=== PATIENT | female | born 2000 | race Caucasian/White ===

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

== ENCOUNTER 2020-12-27 17:45 | Emergency (ER) | payer SELFPAY ==
[2020-12-27 17:47] VITALS: BP 146/94; PULSE 89; RESP 18; TEMP 36.1; O2SAT 99; BMI 26.6
[2020-12-27 18:23] LABS: Bacteria 0 SEEN /hpf (None Seen); Mucous, Urine 0 SEEN /hpf (<or=2+); White Blood Cells 0 SEEN /hpf (0-5)
[2020-12-27 18:26] LABS: Absolute Lymphocyte Count 3.88 X10^3/uL (0.83-4.51); Absolute Neutrophil Count 5.6 X10^3/uL (2.0-7.7); Basophil# 0.03 X10^3/uL; Basophil% 0.3 % (0-1); Color, Urine Yellow (Yellow); Eosinophil# 0.09 X10^3/uL; Eosinophils% 0.9 % (0-5); Glucose, Dipstick Normal (Normal); Hematocrit 41.5 % (37-47); Hemoglobin 13.6 g/dL (12.0-15.0); Ketone-Dipstick Negative (Negative); Leukocyte Esterase-Dipstick Negative /ul (Negative); Lymphocyte # 3.88 X10^3/ul (4.0); Lymphocyte % 37.9 % (19-41); Mean Corp Hgb Conc 32.8 g/dL (32-36); Mean Corpuscular Hgb 31.7 pg (27.0-32.0); Mean Corpuscular Volume 96.7 fL (81-99); Mean Platelet Vol. 9.5 fl (6.2-12.0); Monocyte# 0.66 X10^3/uL; Monocyte% 6.4 % (0-10); NRBC Flagged by Analyzer 0 % (0-5); Neutrophil # 5.56 X10^3/uL (2.7-7.7); Neutrophil % 54.3 % (47-70); Nitrite-Dipstick Negative (Negative); Occult Blood-Urine 250 /ul (Negative); Platelet Count 342 K/mm3 (150-450); Protein-Dipstick Negative (Negative); RBC Distribution Width SD 42.5 fl (35.1-43.9); Red Blood Count 4.29 M/mm3 (4.2-5.4); Urine Bilirubin Dipstick Negative (Negative); Urine Clarity Clear (Clear); Urine Urobilinogen Normal (Normal); White Blood Count 10.2 K/mm3 (4.4-11.0)
[2020-12-27 18:35] LABS: Red Blood Cells-Urine 0-5 SEEN /hpf (0-5); Squamous Epithelial Cells - UA 0-5 SEEN /hpf (5-10)
[2020-12-27 18:43] LABS: AST(SGOT) 18 U/L (15-37); Alanine Aminotransfer ALT/SGPT 27 U/L (13-56); Albumin, Serum 3.8 g/dL (3.2-5.0); Alkaline Phosphatase 73 U/L (45-117); Anion Gap 7 (5-15); BUN 12 mg/dL (7-18); BUN/Creat Ratio 14.6 RATIO (10-20); Calcium,Total 8.6 mg/dL (8.5-10.1); Chloride 108 mmol/L (98-107); Creatinine, Serum 0.82 mg/dL (0.55-1.02); EST Glomerular Filtration Rate 93 mL/min (>60); Est Glom Filt Rate - Afr Amer 113 mL/min (>60); Globulin 3.8 g/dL (2.2-4.2); Glucose 92 mg/dL (74-106); Potassium 3.5 mmol/L (3.5-5.1); Protein, Total 7.6 g/dL (6.4-8.2); Sodium Level 140 mmol/L (136-145)
[2020-12-27 18:48] VITALS: BP 146/83; PULSE 96; RESP 15; O2SAT 99
[2020-12-27 19:09] LABS: Internal QC Validated? YES +Cl - CLEAR BKGD; Pregnancy, Serum, hCG Quali. NEGATIVE Negative
--- NOTE | 2020-12-27 19:35 | EKG12_ITS ---
Test Reason : ABD PAIN Blood Pressure : / mmHG Vent. Rate : 074 BPM Atrial Rate : 074 BPM P-R Int : 152 ms QRS Dur : 096 ms QT Int : 400 ms P-R-T Axes : 065 067 032 degrees QTc Int : 444 ms Normal sinus rhythm with sinus arrhythmia Normal ECG Confirmed by SALENA SCHMITZ, NOREEN ([id number]), avid editor ALLI HILLMAN ([id number]) on 01/01/2021 11:10:00 AM Referred By: NABEEL Confirmed By:ERIK MARTINO MD
[2020-12-27 19:38] LABS: Lipase 85 U/L (73-393)
--- NOTE | 2020-12-27 19:47 | ED.VIS.GEN ---
History of Present Illness Chief Complaint: Abd Pain Informant: Patient Narrative: Patient is a 20-year-old female who presents to the emergency department for abdominal pain. Yesterday. She has been taking multitude of antacids but has not been giving her any relief. It does come and go with the severity. She currently rates the pain as a 4 out of 10. The pain does not radiate. She describes as a burning sensation. Does not go into her chest and she denies any shortness of breath associated with this. Denies any fevers or chills. No cough. She denies any vomiting but has felt nauseous. She has not had any change in bowel movements including any constipation, diarrhea, blood in the stool or black tarry stools. No urinary symptoms. She has had a history of appendectomy. Past Medical History - Allergies and Home Meds Allergies/Adverse Reactions: Allergies hydrocodone Allergy (Verified 12/27/20 17:45) Hives Primary Care Physician: Gary Salvador MD [Primary Care Provider] - 2 Days Prior records reviewed: Yes Past Medical History: None Surgical History: appendectomy Smoking Status: Never smoker Review of Systems All systems negative except as indicated General: Denies: Chills, Fever, Sweats Eyes: Denies: Visual changes - bilaterally, Diplopia ENT: Denies: Rhinorrhea, Sore throat Cardiovascular: Denies: Chest pain, Palpitations Respiratory: Denies: Dyspnea, Cough, Dyspnea on exertion Gastrointestinal: Reports: Abdominal pain, Nausea. Denies: Vomiting, Diarrhea, Melena, Hematochezia Genitourinary: Denies: Dysuria, Hematuria, Frequency Musculoskeletal: Denies: Back pain, Extremity Pain Skin: Denies: Rash, Wounds Neurological: Denies: Headache, Weakness, Numbness Physical Exam Vital Signs/Narrative: Vital Signs Temp Pulse Resp BP Pulse Ox 12/27/20 18:48 96 15 146/83 H 99 12/27/20 17:47 97 F L 89 18 146/94 H 99 Inital Vital Signs reviewed: Yes General: Well nourished, Well developed, No Acute Distress Head: Normocephalic, Atraumatic Eyes: Perrl, EOMI ENT: Moist mucous membranes, No rhinorrhea Neck: Supple, Nontender Cardiovascular: Regular rate, Regular rhythm, No murmurs Respiratory: No distress, CTA bilaterally, Chest nontender Abdomen: Soft, Nondistended, Normal bowel sounds, Tender - Epigastric region. Negative for: Xiong's sign Back: Nontender, Normal Inspection. Negative for: CVA tenderness Extremities: Nontender, No edema Skin: Normal color, No rash Neurological: Alert, Oriented x3, Cranial nerves II-XII grossly intact, Normal Strength, Normal Sensation Psychological: Normal affect, Normal Mood Diagnostic/Tx/Re-eval - EKG Initial EKG Interpretation: - - Rate of 74 bpm and normal sinus rhythm. Normal intervals. Normal axis. No significant ST elevations or depressions. No T wave abnormalities. - Medical Decision Making Patient presents to the emergency department for epigastric pain. This is reproducible on palpation. She has been using antacids which have not been helping. We will give a GI cocktail for symptomatic relief. Blood work being obtained. Patient's lab work did not reveal a significant acute abnormalities. She has no elevation of her white blood cell count. No liver enzymes or bilirubin elevation. Kidney function within normal limits. No evidence of urinary tract infection. test is negative. Lipase within normal limits. Troponin is negative. Patient still having very significant pain despite GI cocktail so CT imaging was obtained. This was concerning for gallbladder wall thickening so ultrasound was obtained which did not show any evidence of cholecystitis or cholelithiasis. Her CT scan was consistent with an ileus with fecal retention. She is given a dose of Bentyl and will be sent home with a prescription for this and MiraLAX/Colace. She is to follow-up with her PCP. Return precautions were reviewed with her including worsening abdominal pain, inability keep anything down, developing fever/chills or any bloody bowel movements. He understands and is agreeable this plan. All questions were answered. ED Disposition - Plan for ED Patient: Disposition: Home or Assisted Living Diagnosis: Abdominal pain, Ileus, Constipation Instructions: ED Abdominal Pain Unkn Cause Fem, ED Constipation (Adult) Prescriptions: Dicyclomine HCl [Bentyl] 20 mg PO TIDAC #20 cap Transmission Status: Received by [id number] Docusate Sodium [Colace] 100 mg PO DAILY 10 Days #10 cap Transmission Status: Received by [id number] Polyethylene Glycol 3350 [Miralax] 17 gm PO DAILY #7 packet Transmission Status: Received by [id number] Referrals: Gary Salvador MD [Primary Care Provider] - 2 Days
[2020-12-27 20:00] VITALS: BP 133/83; PULSE 84; RESP 18; O2SAT 100
[2020-12-27] MEDS: Mag Hydrox/Al Hydrox/Simeth 30 ML UDC PO (20:09)
--- NOTE | 2020-12-27 20:36 | CT_ITS ---
STUDY: CT ABDOMEN AND PELVIS WITH CONTRAST REASON FOR EXAM: Female, 20 years old. EPIGASTRIC PAIN SINCE LAST NIGHT, HX ENDOMETRIOSIS RADIATION DOSAGE (If Supplied By Facility): CTDIvol = ( 11.245 ) mGy, DLP = ( 622.94 ) mGycm TECHNIQUE: Transaxial images were obtained from the dome of the diaphragm to the symphysis pubis without oral contrast. IV 100mL Isovue-370 was administered. Sagittal and coronal images were reconstructed. Individualized dose optimization techniques were used for this CT. COMPARISON: None. FINDINGS: The visualized lung bases are unremarkable. The visualized portions of the heart are within normal limits. Normal liver. Contracted thick-walled gallbladder without calcified stones possibly physiologic. If concern for gallbladder disease ultrasound recommended. Normal spleen. Normal pancreas. Normal bilateral adrenal glands. Normal right kidney. Normal left kidney. Normal visualized stomach. Nonspecific ileus with diffuse fecal retention in the colon. No evidence for small bowel obstruction.. Postop change status post appendectomy. Normal abdominal aorta. Normal inferior vena cava. Normal retroperitoneum. Uterus is deviated towards the right. There are 2 tiny cyst in the right ovary. Normal urinary bladder. Small subcentimeter inguinal nodes bilaterally most likely benign.. Normal osseous structures. CT/Abdomen/Pelvis W IV Cont ONLY IMPRESSION: Contracted thick-walled gallbladder without calcified stones possibly physiologic however if concern for gallbladder disease ultrasound recommended.. Nonspecific ileus with diffuse fecal retention in the colon. Status post appendectomy Electronically Signed: Jose Espino MD at 21:06 EST , Service support ,
[2020-12-27] MEDS: Morphine 4 MG/ML Syringe IV (20:45)
--- NOTE | 2020-12-27 21:27 | US_ITS ---
STUDY: ABDOMINAL ULTRASOUND - RIGHT UPPER QUADRANT REASON FOR VISIT: Female, [address] AND SEVERE EPIGASTRIC PAIN TECHNIQUE: Ultrasound evaluation of the right upper quadrant was performed with real-time and static petersen-scale imaging. TECHNICAL QUALITY: Adequate. COMPARISON: CT of the abdomen FINDINGS: Liver: The liver measures 13 cm. There is normal echogenicity of the liver. The bile ducts are within normal limits. There is hepatic color flow. The direction of portal flow is hepatopetal. There is no demonstrated mass lesion. Gallbladder: Normal distended gallbladder. The gallbladder wall measures 2 mm. There is a negative sonographic Xiong''s sign. There is no pericholecystic fluid. There are no gallstones. Common Bile Duct (C.B.D.): The common bile duct measures 4 mm. Pancreas: Limited visualization of pancreatic head. The rest of the pancreas is normal. There is normal echogenicity of the pancreas. There is no demonstrated pancreatic mass or cyst. Right Kidney: Normal size of the right kidney. The right kidney measures 9.5 x 5.5 x 4.6 cm. Normal renal cortex. The right cortex measures 1.4 cm. There is no demonstrated renal mass or cyst. There is no right hydronephrosis. US/Abdomen Limited IMPRESSION: No evidence for cholelithiasis or acute cholecystitis Electronically Signed: Jose Espino MD at 22:05 EST , Service support ,
[2020-12-27] MEDS: Dicyclomine 20 MG/2 ML Vial IM (23:36)
[2020-12-28] VITALS: BP 124/80; PULSE 93; RESP 18; TEMP 36.8; O2SAT 100
== END 2020-12-28 00:04 | disposition home or self-care (01) ==
PROVIDERS: Emergency Provider Emergency Medicine; PCP Family Medicine
DX: R10.9 Unspecified abdominal pain (principal); K56.7 Ileus, unspecified; K59.00 Constipation, unspecified
CPT/HCPCS: 74177; 76705; 80048; 80053; 81001; 83690; 84484; 84703; 85025; 93005; 96372; 96374; 99283; Q9967; A4216

== ENCOUNTER 2022-02-05 13:38 | Outpatient (CLI) | payer MEDICAID, SELFPAY ==
[2022-02-05 15:34] LABS: Progesterone Level 4.61 ng/mL (See Comment)
[2022-02-05 15:35] LABS: hCG Titer Quant., Serum < 1 mIU/mL (1-3)
== END 2022-02-05 23:59 | disposition home or self-care (01) ==
LOC: WOBLAB 13:42
PROVIDERS: PCP Family Medicine; Visit Provider Obstetrics & Gynecology
DX: N97.0 Female infertility associated with anovulation (principal)
CPT/HCPCS: 36415; 84144; 84702

== ENCOUNTER → 2022-10-15 | Outpatient (CLI) | payer MEDICAID, SELFPAY ==
[2022-10-15 15:16] LABS: Absolute Lymphocyte Count 1.87 X10^3/uL (0.83-4.51); Absolute Neutrophil Count 7.7 X10^3/uL (2.0-7.7); Basophil# 0.03 X10^3/uL; Basophil% 0.3 % (0-1); Eosinophil# 0.05 X10^3/uL; Eosinophils% 0.5 % (0-5); Hematocrit 35.4 % (37-47); Hemoglobin 11.5 g/dL (12.0-15.0); Lymphocyte # 1.87 X10^3/ul (0.83-4.51); Lymphocyte % 17.9 % (19-41); Mean Corp Hgb Conc 32.5 g/dL (32-36); Mean Corpuscular Hgb 32.9 pg (27.0-32.0); Mean Corpuscular Volume 101.1 fL (81-99); Mean Platelet Vol. 10.1 fl (6.2-12.0); Monocyte# 0.61 X10^3/uL; Monocyte% 5.8 % (0-10); NRBC Flagged by Analyzer 0 % (0-5); Neutrophil # 7.73 X10^3/uL (2.7-7.7); Neutrophil % 73.9 % (47-70); Platelet Count 291 K/mm3 (150-450); RBC Distribution Width CV 13.1 % (11.6-14.6); RBC Distribution Width SD 48.6 fl (35.1-43.9); White Blood Count 10.5 K/mm3 (4.4-11.0)
[2022-10-15 17:17] LABS: Glucose Challenge Gest 1H 50g 111 mg/dL (70-140)
[2022-10-15 18:03] LABS: HIV - WCH Non-Reactive (Nonreactive); Hepatitis B Surface Antigen Non-Reactive (Nonreactive); Hepatitis C Antibody Non-Reactive (Nonreactive); Rubella IgG Reactive (Nonreactive); Syphilis Antibodies Non-reactive
[2022-10-17 15:25] LABS: V-Zoster IgG (Immunity) 1195 index (Immune >165)
== END | disposition home or self-care (01) ==
LOC: WOBLAB 14:51
PROVIDERS: PCP Family Medicine; Visit Provider Obstetrics & Gynecology
DX: Z34.83 Encounter for supervision of other normal pregnancy, third trimester (principal)
CPT/HCPCS: 36415; 82950; 85025; 86703; 86762; 86780; 86787; 86803; 87086; 87088; 87340

== ENCOUNTER → 2022-12-04 | Outpatient (CLI) | payer MEDICAID, SELFPAY ==
[2022-12-04 12:59] LABS: Hematocrit 34.3 % (37-47); Hemoglobin 11.8 g/dL (12.0-15.0); Mean Corp Hgb Conc 34.4 g/dL (32-36); Mean Corpuscular Hgb 34.5 pg (27.0-32.0); Mean Corpuscular Volume 100.3 fL (81-99); Mean Platelet Vol. 10.8 fl (6.2-12.0); Platelet Count 295 K/mm3 (150-450); RBC Distribution Width CV 13.2 % (11.6-14.6); Red Blood Count 3.42 M/mm3 (4.2-5.4); White Blood Count 12.4 K/mm3 (4.4-11.0)
[2022-12-04 13:57] LABS: Syphilis Antibodies Non-reactive
== END | disposition home or self-care (01) ==
LOC: WOBLAB 11:33
PROVIDERS: PCP Family Medicine; Visit Provider Obstetrics & Gynecology
DX: Z34.83 Encounter for supervision of other normal pregnancy, third trimester (principal); Z36.85 Encounter for antenatal screening for Streptococcus B
CPT/HCPCS: 36415; 85027; 86780; 87081

== ENCOUNTER 2022-12-10 14:50 | Inpatient (IN) | payer MEDICAID, SELFPAY ==
[2022-12-10] VITALS (39 sets, daily range): BP systolic 122–145; BP diastolic 61–81; PULSE 82–101; RESP 16–18; TEMP 36.9–37.3; O2SAT 94–99; BMI 37.3
[2022-12-10] MEDS: Lactated Ringers 1,000 ML 15 ML IV (15:40)
[2022-12-10] MEDS: Magnesium Sulfate 4gm/100mL 4 GM/100 ML IV.SOLN. IV (15:50)
[2022-12-10 15:52] LABS: Mucous, Urine 0 SEEN /hpf (<or=2+); Red Blood Cells-Urine 0 SEEN /hpf (0-5)
[2022-12-10 15:54] LABS: Absolute Lymphocyte Count 2.15 X10^3/uL (0.83-4.51); Basophil# 0.03 X10^3/uL; Basophil% 0.3 % (0-1); Eosinophil# 0.05 X10^3/uL; Eosinophils% 0.4 % (0-5); Hematocrit 36.1 % (37-47); Hemoglobin 11.9 g/dL (12.0-15.0); Lymphocyte # 2.15 X10^3/ul (0.83-4.51); Lymphocyte % 19.1 % (19-41); Mean Corpuscular Hgb 32.6 pg (27.0-32.0); Mean Corpuscular Volume 98.9 fL (81-99); Mean Platelet Vol. 10.9 fl (6.2-12.0); Monocyte# 0.86 X10^3/uL; Monocyte% 7.6 % (0-10); NRBC Flagged by Analyzer 0 % (0-5); Neutrophil % 71.1 % (47-70); Platelet Count 284 K/mm3 (150-450); RBC Distribution Width CV 13.1 % (11.6-14.6); RBC Distribution Width SD 47.4 fl (35.1-43.9); Red Blood Count 3.65 M/mm3 (4.2-5.4); White Blood Count 11.3 K/mm3 (4.4-11.0)
[2022-12-10 16:02] LABS: Color, Urine Yellow (Yellow); Glucose, Dipstick Normal (Normal); Ketone-Dipstick Negative (Negative); Leukocyte Esterase-Dipstick 500 /ul (Negative); Nitrite-Dipstick Negative (Negative); Occult Blood-Urine Negative /ul (Negative); Protein-Dipstick Negative (Negative); Urine Bilirubin Dipstick Negative (Negative); Urine Clarity Sl. Cloudy (Clear); Urine Urobilinogen Normal (Normal)
[2022-12-10 16:11] LABS: Protein, Urine (Random) 12.8 mg/dL (<11.9); Protein:Creat Ratio 285 mg/g CRE (0-200)
[2022-12-10 16:12] LABS: LDH 160 U/L (84-246)
[2022-12-10 16:13] LABS: ALB/GLOB Ratio 0.6 RATIO (0.9-2.4); AST(SGOT) 12 U/L (15-37); Alanine Aminotransfer ALT/SGPT 14 U/L (13-56); Albumin, Serum 2.5 g/dL (3.2-5.0); Alkaline Phosphatase 129 U/L (45-117); Anion Gap 5 (5-15); BUN 7 mg/dL (7-18); BUN/Creat Ratio 12.6 RATIO (10-20); Calcium,Total 9.1 mg/dL (8.5-10.1); Chloride 110 mmol/L (98-107); Creatinine, Serum 0.56 mg/dL (0.55-1.02); EST Glomerular Filtration Rate 144 mL/min (>60); Est Glom Filt Rate - Afr Amer 174 mL/min (>60); Estimated Creatinine Clearance 136.07 ml/min; Globulin 4.2 g/dL (2.2-4.2); Glucose 94 mg/dL (74-106); Potassium 3.6 mmol/L (3.5-5.1); Protein, Total 6.7 g/dL (6.4-8.2); Sodium Level 138 mmol/L (136-145)
[2022-12-10] MEDS: Magnesium Sulfate 4gm/100mL 2 GM/50 ML IV.SOLN. IV (16:18)
[2022-12-10] MEDS: 0.9% Saline Lock 10 ML Syringe IV ×2 (16:20→19:24)
[2022-12-10 16:22] LABS: Bacteria 2+ /hpf (None Seen); White Blood Cells 10-25 SEEN /hpf (0-5)
[2022-12-10 16:23] LABS: Squamous Epithelial Cells - UA 10-25 SEEN /hpf (5-10)
[2022-12-10] MEDS: Betamethasone/Betamethasone 30 MG/5 ML Vial 12 MG IM (16:24)
[2022-12-10] MEDS: Magnesium Sulfate 20 GM/500 ML BAG IV (16:26)
--- NOTE | 2022-12-10 17:36 | HP.PCM.OB_ITS ---
History and Physical Date of Admission: 12/10/22 HPI: 22-year-old at 36/6 weeks, WILFRIDO 01/01/2020 3 x 7-week ultrasound, admitted for induction of labor for preeclampsia with severe features. Patient presented to the office this afternoon and had elevated blood pressure. Additionally patient is reporting headache with visual disturbances. Denies right upper quadrant pain, nausea or vomiting, chest pain or shortness of breath, diarrhea or constipation, fevers or chills. Reports movement. Denies regular contractions or leaking of fluid. 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 Appendectomy 2. Tonsillectomy and adenoidectomy 3. Laparoscopic endometriosis surgery 2019 Medications: vitamin Allergies: 1. Hydrocodone caused hives Social history: Denies current tobacco use, is a former user, denies alcohol or drug use Family history: Denies history of blood clots or bleeding disorders Review of system: Negative otherwise stated above Physical exam: Blood pressure 140/73, heart rate 85, oxygen saturation 98% on room air General: No acute distress HEENT: Normal cephalic/atraumatic, PERRLA Cardiorespiratory: No increased effort Abdomen: Soft, nontender, gravid, no right upper quadrant pain Extremities: +1 edema Neurologic: Cranial nerves II through XII grossly intact, DTRs 2/4 bilaterally, no clonus Musculoskeletal: Strength out of 5 throughout extremities Cervical exam pending Bedside ultrasound today in office cephalic position FHR: 135/mod betty/+accel/no decel [place]: irregular panel A positive GBS negative HIV/hepatitis B/hepatitis C all negative Rubella immune Syphilis negative Assessment/plan: 22-year-old at 36/6 weeks, WILFRIDO 01/01/2020 3 x 7-week ultrasound, admitted for induction of labor for preeclampsia with severe features. complicated by: Preeclampsia with severe feature based on elevated blood pressure and neurologic symptoms. ?Admit for induction of labor with cytotec ?Preeclampsia with severe features: Start magnesium sulfate. 6 g bolus followed by 2 g/h. Will check mag level in 6 hours. ?Celestone given ?GBS negative ?All questions answered.
[2022-12-10] MEDS: miSOPROStol 25 MCG TABLET VAGINAL ×2 (18:06→22:09)
[2022-12-11] VITALS (55 sets, daily range): BP systolic 99–155; BP diastolic 54–91; PULSE 78–111; RESP 16–18; TEMP 36.1–36.9; O2SAT 92–100
[2022-12-11] MEDS: miSOPROStol 25 MCG TABLET VAGINAL ×2 (02:15→06:13)
[2022-12-11] MEDS: Magnesium Sulfate 20 GM/500 ML BAG IV ×3 (02:24→22:45)
[2022-12-11] MEDS: fentaNYL 100 MCG/2 ML Ampul IV ×6 (04:33→16:29)
--- NOTE | 2022-12-11 06:08 | PN.OBGYN_ITS ---
Subjective Subjective Patient sleeping this morning, did not wake. Spoke with her partner who did not have any questions. Objective Data Objective Data Vital Signs: Vital Signs Temp Pulse Resp BP Pulse Ox O2 Del Method 98.2 F 96 16 134/79 H 98 Room Air 12/11/22 04:20 12/11/22 05:04 12/10/22 19:00 12/11/22 05:04 12/11/22 05:04 12/10/22 18:04 Oxygen Delivery Method Room Air Weight: 98.6 kg Body Mass Index (BMI) 37.3 Intake & Output: Intake and Output for Last 24 Hours 12/09/22 12/10/22 12/11/22 23:59 23:59 23:59 Intake Total 570 / 570 873.33 / 873.33 Output Total 950 / 950 850 / 850 Balance -380 / -380 . Lab / Micro Data Attestation: I reviewed the patient's lab results. Result Diagrams: 12/10/22 15:35 12/10/22 15:35 Labs: Laboratory Results - last 24 hr 12/10/22 15:35: WBC 11.3 H, RBC 3.65 L, Hgb 11.9 L, Hct 36.1 L, MCV 98.9, MCH 32.6 H, MCHC 33.0, RDW Std Deviation 47.4 H, RDW Coeff of Gino 13.1, Plt Count 284, MPV 10.9, Immature Gran % (Auto) 1.500 H, Neut % (Auto) 71.1 H, Lymph % (Auto) 19.1, [place] % (Auto) 7.6, Eos % (Auto) 0.4, Baso % (Auto) 0.3, Absolute Neuts (auto) 8.0 H, Absolute Lymphs (auto) 2.15, Nucleated RBC % 0 12/10/22 15:35: Blood Type A POSITIVE, Antibody Screen NEGATIVE 12/10/22 15:35: U Random Total Protein 12.8 H, Urine Creatinine 44.90, Protein/Creatinin Ratio 285 H 12/10/22 15:35: Urine Color Yellow, Urine Clarity Sl. Cloudy, Urine pH 6.0, Ur Specific [place] 1.010, Urine Protein Negative, Urine Glucose (UA) Normal, Urine Ketones Negative, Urine Occult Blood Negative, Urine Nitrite Negative, Urine Bilirubin Negative, Urine Urobilinogen Normal, Ur Leukocyte Esterase 500 H, Urine RBC 0 SEEN, Urine WBC 10-25 SEEN, Ur Squamous Epith Cells 10-25 SEEN, Urine Bacteria 2+, Urine Mucus 0 SEEN 12/10/22 15:35: Lactate Dehydrogenase 160 12/10/22 15:35: Sodium 138, Potassium 3.6, Chloride 110 H, Carbon Dioxide 23.0, Anion Gap 5, BUN 7, Creatinine 0.56, Estim Creat Clear Calc 136.07, Est GFR (MDRD) Af Amer 174, Est GFR (MDRD) Non-Af 144, BUN/Creatinine Ratio 12.6, Glucose 94, Calcium 9.1, Total Bilirubin 0.20, AST 12 L, ALT 14, Alkaline Phosphatase 129 H, Total Protein 6.7, Albumin 2.5 L, Globulin 4.2, Albumin/Globulin Ratio 0.6 L Physical Exam Const no apparent distress Constitutional Narrative: Sleeping comfortably NST FHR Rate Baby A Baseline: 120 Variability:: Moderate Accelerations:: 15 x 15 Decelerations:: None FHR Category:: Category I Assessment & Plan (1) Severe pre-eclampsia: PLAN: Plan 22-year-old G1 at 37/0 weeks admitted for induction of labor for preeclampsia with severe features. Continue magnesium sulfate. Blood pressures are currently well controlled. Continue Cytotec induction. Patient is due for her fourth dose this morning.
[2022-12-11] MEDS: 0.9% Saline Lock 10 ML Syringe IV ×5 (07:17→16:29)
[2022-12-11 11:01] LABS: Magnesium 5.6 mg/dL (1.6-2.6)
[2022-12-11] MEDS: Oxytocin 15 Units/NS 250ml 15 UNITS/250 ML IV.SOLN 2 UNITS IV (11:03)
[2022-12-11] MEDS: Ondansetron 4 MG/2 ML Vial IV (11:41)
--- NOTE | 2022-12-11 12:47 | PN.OBGYN_ITS ---
Subjective Subjective Patient feeling more discomfort with contract Objective Data Objective Data Vital Signs: Vital Signs Temp Pulse Resp BP Pulse Ox O2 Del Method 98.5 F 86 16 130/77 H 97 Room Air 12/11/22 11:00 12/11/22 11:01 12/11/22 10:00 12/11/22 11:00 12/11/22 11:01 12/11/22 10:00 Oxygen Delivery Method Room Air Weight: 217 lb 6 oz Body Mass Index (BMI) 37.3 Intake & Output: Intake and Output for Last 24 Hours 12/09/22 12/10/22 12/11/22 23:59 23:59 23:59 Intake Total 570 / 570 1326.00 / 1326.00 Output Total 950 / 950 1475 / 1475 Balance -380 / -380 -149.00 / -149.00 Lab / Micro Data Result Diagrams: 12/10/22 15:35 12/10/22 15:35 Labs: Laboratory Results - last 24 hr 12/10/22 15:35: WBC 11.3 H, RBC 3.65 L, Hgb 11.9 L, Hct 36.1 L, MCV 98.9, MCH 32.6 H, MCHC 33.0, RDW Std Deviation 47.4 H, RDW Coeff of Gino 13.1, Plt Count 284, MPV 10.9, Immature Gran % (Auto) 1.500 H, Neut % (Auto) 71.1 H, Lymph % (Auto) 19.1, [place] % (Auto) 7.6, Eos % (Auto) 0.4, Baso % (Auto) 0.3, Absolute Neuts (auto) 8.0 H, Absolute Lymphs (auto) 2.15, Nucleated RBC % 0 12/10/22 15:35: Blood Type A POSITIVE, Antibody Screen NEGATIVE 12/10/22 15:35: U Random Total Protein 12.8 H, Urine Creatinine 44.90, Protein/Creatinin Ratio 285 H 12/10/22 15:35: Urine Color Yellow, Urine Clarity Sl. Cloudy, Urine pH 6.0, Ur Specific [place] 1.010, Urine Protein Negative, Urine Glucose (UA) Normal, Urine Ketones Negative, Urine Occult Blood Negative, Urine Nitrite Negative, Urine Bilirubin Negative, Urine Urobilinogen Normal, Ur Leukocyte Esterase 500 H, Urine RBC 0 SEEN, Urine WBC 10-25 SEEN, Ur Squamous Epith Cells 10-25 SEEN, Urine Bacteria 2+, Urine Mucus 0 SEEN 12/10/22 15:35: Lactate Dehydrogenase 160 12/10/22 15:35: Sodium 138, Potassium 3.6, Chloride 110 H, Carbon Dioxide 23.0, Anion Gap 5, BUN 7, Creatinine 0.56, Estim Creat Clear Calc 136.07, Est GFR (MDRD) Af Amer 174, Est GFR (MDRD) Non-Af 144, BUN/Creatinine Ratio 12.6, Glucose 94, Calcium 9.1, Total Bilirubin 0.20, AST 12 L, ALT 14, Alkaline Phosphatase 129 H, Total Protein 6.7, Albumin 2.5 L, Globulin 4.2, Albumin/Globulin Ratio 0.6 L 12/11/22 10:37: Magnesium 5.6 H* Physical Exam Const alert, oriented x3, no apparent distress, average body habitus, healthy appearing and well nourished HEENT normocephalic and moist oral mucous membranes Eyes PERRL Neck full ROM Resp normal respiratory effort, no retractions and no use of accessory muscles GI GI Narrative: Soft, nontender, gravid Narrative: Cervical exam: /-3. AROM clear fluid Extremity normal to inspection, full ROM and no clubbing, cyanosis or edema Neuro moves all extremities and no focal motor deficits Psych mental status grossly normal, affect normal, speech normal and activity/motor behavior normal Assessment & Plan (1) : PLAN: Patient seen and examined. AROM clear fluid. Status post 4 doses of Cytotec. Pitocin started. We will continue to titrate Pitocin. Preeclampsia with severe features, will continue magnesium and continue to monitor blood pressures.
[2022-12-11] MEDS: LACTATED RINGERS 500 ML 999 ML IV ×2 (17:38→23:36)
--- NOTE | 2022-12-11 18:05 | PCM.PN.OB ---
Subjective Subjective Pain with contractions pain with contractions pain with contractions Objective Data Objective Data Vital Signs: Vital Signs Temp Pulse Resp BP Pulse Ox O2 Del Method 98.4 F 99 16 127/61 H 98 Room Air 12/11/22 17:12 12/11/22 17:16 12/11/22 10:00 12/11/22 17:12 12/11/22 17:16 12/11/22 10:00 Oxygen Delivery Method Room Air Weight: 217 lb 6 oz Body Mass Index (BMI) 37.3 Intake & Output: Intake and Output for Last 24 Hours 12/09/22 12/10/22 12/11/22 23:59 23:59 23:59 Intake Total 570 / 570 2690.93 / 2690.93 Output Total 950 / 950 2225 / 2225 Balance -380 / -380 465.93 / 465.93 Lab / Micro Data Result Diagrams: 12/10/22 15:35 12/10/22 15:35 Labs: Laboratory Results - last 24 hr 12/11/22 10:37: Magnesium 5.6 H* Physical Exam Const alert, oriented x3, no apparent distress, average body habitus, healthy appearing and well nourished HEENT normocephalic and moist oral mucous membranes Eyes PERRL Resp normal respiratory effort, no retractions and no use of accessory muscles Extremity normal to inspection and full ROM Psych mental status grossly normal, affect normal, speech normal and activity/motor behavior normal Assessment & Plan (1) : PLAN: Patient seen and examined. Uncomfortable with contractions now getting epidural. Recent nursing check 4 cm. We will continue to titrate Pitocin. Continue magnesium with preeclampsia with severe features based on headache and visual changes. We will continue to monitor blood pressures.
[2022-12-11] MEDS: fentaNYL-bupivacaine (epidural) 100 ML BAG EPIDURAL ×2 (18:50→23:20)
[2022-12-12] VITALS (53 sets, daily range): BP systolic 111–150; BP diastolic 54–82; PULSE 72–105; RESP 14–18; TEMP 36.3–37.3; O2SAT 93–100
[2022-12-12] MEDS: Lactated Ringers 1,000 ML 50 ML IV (00:07)
[2022-12-12] MEDS: Oxytocin 10 UNITS/ML Vial IM (02:52)
[2022-12-12] MEDS: Oxytocin 15 Units/NS 250ml 15 UNITS/250 ML IV.SOLN 83 UNITS IV (02:52)
--- NOTE | 2022-12-12 03:18 | EX.PCM.OBRPT ---
Vaginal Delivery Findings Description of Procedure: Normal spontaneous vaginal livery viable male infant, vertex DAISY. Head and shoulders delivered with ease. Cord clamped and cut. Baby handed off to patient. Placenta delivered via manual extraction. Placenta evaluated and found to be intact. Bedside ultrasound postdelivery thin endometrial stripe was noted. Uterus firm. 10 units of IM Pitocin given and IV Pitocin in order to facilitate uterine contractions. Good hemostasis noted. Left labial laceration noted and repaired in typical fashion. EBL. 50 cc Apgars 8/9
[2022-12-12 05:35] LABS: Absolute Lymphocyte Count 1.33 X10^3/uL (0.83-4.51); Absolute Neutrophil Count 14.6 X10^3/uL (2.0-7.7); Basophil# 0.02 X10^3/uL; Basophil% 0.1 % (0-1); Hematocrit 31.3 % (37-47); Hemoglobin 10.2 g/dL (12.0-15.0); Lymphocyte # 1.33 X10^3/ul (0.83-4.51); Lymphocyte % 7.5 % (19-41); Mean Corp Hgb Conc 32.6 g/dL (32-36); Mean Corpuscular Hgb 32.9 pg (27.0-32.0); Mean Platelet Vol. 10.6 fl (6.2-12.0); Monocyte# 1.66 X10^3/uL; Monocyte% 9.4 % (0-10); NRBC Flagged by Analyzer 0 % (0-5); Neutrophil # 14.56 X10^3/uL (2.7-7.7); POSITIVE DIFFERENTIAL YES; Platelet Count 252 K/mm3 (150-450); RBC Distribution Width CV 13.4 % (11.6-14.6); RBC Distribution Width SD 49.3 fl (35.1-43.9); White Blood Count 17.7 K/mm3 (4.4-11.0)
[2022-12-12 05:45] LABS: Differential Indicated SCAN CRITERIA MET
[2022-12-12 06:00] LABS: Macrocytosis RARE
[2022-12-12 06:05] LABS: ALB/GLOB Ratio 0.6 RATIO (0.9-2.4); AST(SGOT) 14 U/L (15-37); Alanine Aminotransfer ALT/SGPT 14 U/L (13-56); Albumin, Serum 2.2 g/dL (3.2-5.0); Alkaline Phosphatase 112 U/L (45-117); Anion Gap 11 (5-15); BUN 7 mg/dL (7-18); BUN/Creat Ratio 11.4 RATIO (10-20); Calcium,Total 7.2 mg/dL (8.5-10.1); Chloride 105 mmol/L (98-107); Creatinine, Serum 0.61 mg/dL (0.55-1.02); EST Glomerular Filtration Rate 128 mL/min (>60); Est Glom Filt Rate - Afr Amer 155 mL/min (>60); Estimated Creatinine Clearance 124.92 ml/min; Globulin 3.6 g/dL (2.2-4.2); Glucose 109 mg/dL (74-106); LDH 198 U/L (84-246); Potassium 3.4 mmol/L (3.5-5.1); Protein, Total 5.8 g/dL (6.4-8.2); Sodium Level 136 mmol/L (136-145)
[2022-12-12] MEDS: 0.9% Saline Lock 10 ML Syringe IV (06:05)
[2022-12-12] MEDS: Magnesium Sulfate 20 GM/500 ML BAG IV ×2 (09:44→19:58)
[2022-12-12] MEDS: Benzocaine/Lanolin/Aloe Vera 1 SPRAY EACH TOPICAL (09:44)
[2022-12-12] MEDS: Ibuprofen 600 MG Tablet PO (20:01)
[2022-12-13] VITALS (12 sets, daily range): BP systolic 104–130; BP diastolic 57–66; PULSE 66–82; RESP 16–18; TEMP 36.5–37.3; O2SAT 94–98
[2022-12-13] MEDS: 0.9% Saline Lock 10 ML Syringe IV (02:54)
[2022-12-13] MEDS: Ibuprofen 600 MG Tablet PO ×3 (04:42→18:05)
--- NOTE | 2022-12-13 07:21 | PCM.PN.OB ---
Subjective Subjective Resting comfortably in bed. Feeling well. Denies headache or vision changes, chest pain or shortness of breath, nausea or vomiting. Breast-feeding. Objective Data Objective Data Vital Signs: Vital Signs Temp Pulse Resp BP Pulse Ox O2 Del Method 97.8 F 71 16 119/62 97 Room Air 12/13/22 03:37 12/13/22 03:38 12/13/22 03:37 12/13/22 03:38 12/13/22 03:37 12/13/22 03:37 Oxygen Delivery Method Room Air Weight: 98.6 kg Body Mass Index (BMI) 37.3 Intake & Output: Intake and Output for Last 24 Hours 12/11/22 12/12/22 12/13/22 23:59 23:59 23:59 Intake Total 4263.01 / 4263.01 3115.50 / 3115.50 393.33 / 393.33 Output Total 2675 / 2675 2950 / 2950 Balance 1588.01 / 1588.01 165.50 / 165.50 393.33 / 393.33 Lab / Micro Data Attestation: I reviewed the patient's lab results. Result Diagrams: 12/12/22 05:25 12/12/22 05:25 Physical Exam Const alert, oriented x3 and no apparent distress HEENT normocephalic Head and Scalp: atraumatic Neck full ROM Resp normal respiratory effort Cardio regular rate GI normal to inspection, nondistended, normoactive bowel sounds GI Narrative: Uterus 2 cm below umbilicus Back/Spine normal ROM Extremity normal to inspection Extremity Narrative: Minimal pedal edema Neuro no focal motor deficits and no sensory deficits noted Psych mental status grossly normal and affect normal Assessment & Plan (1) Severe pre-eclampsia: PLAN: day 1 status post . Complicated by preeclampsia with severe features based on neurologic symptoms and elevated blood pressure. Status post magnesium sulfate x24 hours. Blood pressures well controlled. We will repeat labs this morning. Breast-feeding. Plan discharge home on Friday if labs and blood pressures continue to be stable.
[2022-12-13 08:35] LABS: Absolute Neutrophil Count 9.3 X10^3/uL (2.0-7.7); Basophil# 0.05 X10^3/uL; Basophil% 0.4 % (0-1); Eosinophil# 0.08 X10^3/uL; Eosinophils% 0.6 % (0-5); Hematocrit 30.1 % (37-47); Hemoglobin 10.1 g/dL (12.0-15.0); Lymphocyte % 21.6 % (19-41); Mean Corp Hgb Conc 33.6 g/dL (32-36); Mean Corpuscular Hgb 33.8 pg (27.0-32.0); Mean Corpuscular Volume 100.7 fL (81-99); Mean Platelet Vol. 10.5 fl (6.2-12.0); Monocyte# 1.37 X10^3/uL; Monocyte% 9.9 % (0-10); NRBC Flagged by Analyzer 0 % (0-5); Neutrophil # 9.25 X10^3/uL (2.7-7.7); Neutrophil % 66.4 % (47-70); Platelet Count 249 K/mm3 (150-450); RBC Distribution Width CV 13.7 % (11.6-14.6); RBC Distribution Width SD 50.5 fl (35.1-43.9); Red Blood Count 2.99 M/mm3 (4.2-5.4); White Blood Count 13.9 K/mm3 (4.4-11.0)
[2022-12-13 09:03] LABS: ALB/GLOB Ratio 0.6 RATIO (0.9-2.4); AST(SGOT) 20 U/L (15-37); Alanine Aminotransfer ALT/SGPT 16 U/L (13-56); Albumin, Serum 2.1 g/dL (3.2-5.0); Alkaline Phosphatase 99 U/L (45-117); Anion Gap 8 (5-15); BUN 10 mg/dL (7-18); BUN/Creat Ratio 16.4 RATIO (10-20); Calcium,Total 7.8 mg/dL (8.5-10.1); Chloride 109 mmol/L (98-107); Creatinine, Serum 0.61 mg/dL (0.55-1.02); EST Glomerular Filtration Rate 129 mL/min (>60); Est Glom Filt Rate - Afr Amer 157 mL/min (>60); Estimated Creatinine Clearance 124.92 ml/min; Globulin 3.6 g/dL (2.2-4.2); Glucose 101 mg/dL (74-106); LDH 266 U/L (84-246); Potassium 3.3 mmol/L (3.5-5.1); Protein, Total 5.7 g/dL (6.4-8.2); Sodium Level 140 mmol/L (136-145)
[2022-12-13 11:47] LABS: Pathologist Review Reviewed
[2022-12-13] MEDS: Acetaminophen 500 MG Tablet 1000 MG PO ×2 (14:30→22:17)
--- NOTE | 2022-12-14 00:17 | PCM.PN.OB ---
Subjective Subjective Patient tired. Baby is cluster feeding. Lochia minimal. Some cramping, improved with Tylenol and Motrin. Denies headache or vision changes, chest pain or shortness of breath, nausea or vomiting. Objective Data Objective Data Vital Signs: Vital Signs Temp Pulse Resp BP Pulse Ox O2 Del Method 99.1 F 71 18 130/61 H 98 Room Air 12/13/22 20:54 12/13/22 20:54 12/13/22 20:54 12/13/22 20:54 12/13/22 08:26 12/13/22 20:54 Oxygen Delivery Method Room Air Weight: 98.6 kg Body Mass Index (BMI) 37.3 Intake & Output: Intake and Output for Last 24 Hours 12/12/22 12/13/22 12/14/22 23:59 23:59 23:59 Intake Total 3115.50 / 3115.50 393.33 / 393.33 Output Total 2950 / 2950 Balance 165.50 / 165.50 393.33 / 393.33 Lab / Micro Data Attestation: I reviewed the patient's lab results. Result Diagrams: 12/13/22 08:15 12/13/22 08:15 Labs: Laboratory Results - last 24 hr 12/12/22 05:25: Diff Path Review Reviewed 12/13/22 08:15: Sodium 140, Potassium 3.3 L, Chloride 109 H, Carbon Dioxide 23.0, Anion Gap 8, BUN 10, Creatinine 0.61, Estim Creat Clear Calc 124.92, Est GFR (MDRD) Af Amer 157, Est GFR (MDRD) Non-Af 129, BUN/Creatinine Ratio 16.4, Glucose 101, Calcium 7.8 L, Total Bilirubin 0.20, AST 20, ALT 16, Alkaline Phosphatase 99, Lactate Dehydrogenase 266 H, Total Protein 5.7 L, Albumin 2.1 L, Globulin 3.6, Albumin/Globulin Ratio 0.6 L 12/13/22 08:15: WBC 13.9 H, RBC 2.99 L, Hgb 10.1 L, Hct 30.1 L, MCV 100.7 H, MCH 33.8 H, MCHC 33.6, RDW Std Deviation 50.5 H, RDW Coeff of Gino 13.7, Plt Count 249, MPV 10.5, Immature Gran % (Auto) 1.100 H, Neut % (Auto) 66.4, Lymph % (Auto) 21.6, [place] % (Auto) 9.9, Eos % (Auto) 0.6, Baso % (Auto) 0.4, Absolute Neuts (auto) 9.3 H, Absolute Lymphs (auto) 3.00, Nucleated RBC % 0 Physical Exam Const alert, oriented x3 and no apparent distress HEENT normocephalic Head and Scalp: atraumatic Neck full ROM Resp normal respiratory effort Cardio regular rate GI normal to inspection, nondistended, normoactive bowel sounds GI Narrative: Uterus 2 cm below umbilicus Back/Spine normal ROM Extremity normal to inspection Extremity Narrative: Minimal pedal edema Neuro no focal motor deficits and no sensory deficits noted Psych mental status grossly normal and affect normal Assessment & Plan (1) Severe pre-eclampsia: PLAN: day 2 status post . Complicated by preeclampsia with severe features based on neurologic symptoms and elevated blood pressure. Status post magnesium sulfate x24 hours. Blood pressures well controlled. Labs stable on day 1. Breast-feeding. Plan discharge home on Friday if labs and blood pressures continue to be stable.
[2022-12-14] MEDS: Ibuprofen 600 MG Tablet PO ×4 (00:35→23:48)
[2022-12-14] MEDS: 0.9% Saline Lock 10 ML Syringe IV ×2 (00:35→15:17)
[2022-12-14 01:28] VITALS: BP 118/71; PULSE 71; RESP 18; TEMP 36.9
[2022-12-14] MEDS: Acetaminophen 500 MG Tablet 1000 MG PO ×3 (04:56→17:10)
[2022-12-14 09:19] VITALS: BP 138/83; PULSE 76; RESP 15; TEMP 37.1
[2022-12-14 12:16] VITALS: BP 140/83
[2022-12-14 14:27] VITALS: BP 134/77; PULSE 80; RESP 15; TEMP 37.1; O2SAT 98
[2022-12-14 20:40] VITALS: BP 137/85; PULSE 71; RESP 18; TEMP 36.8
[2022-12-15 02:24] VITALS: BP 132/82; PULSE 73; RESP 16; TEMP 36.9
[2022-12-15] MEDS: Acetaminophen 500 MG Tablet 1000 MG PO ×3 (02:38→15:58)
--- NOTE | 2022-12-15 08:01 | PCM.PN.OB ---
Subjective Subjective Patient got some rest this morning. Breast-feeding is going better. Baby needs bili lights. Denies headache or vision changes, chest pain or shortness of breath, nausea or vomiting. Objective Data Objective Data Vital Signs: Vital Signs Temp Pulse Resp BP Pulse Ox O2 Del Method 98.4 F 73 16 132/82 H 98 Room Air 12/15/22 02:24 12/15/22 02:24 12/15/22 02:24 12/15/22 02:24 12/14/22 14:27 12/15/22 02:24 Oxygen Delivery Method Room Air Weight: 98.6 kg Body Mass Index (BMI) 37.3 Intake & Output: Intake and Output for Last 24 Hours 12/13/22 12/14/22 12/15/22 23:59 23:59 23:59 Intake Total 393.33 / 393.33 Balance 393.33 / 393.33 Lab / Micro Data Result Diagrams: 12/13/22 08:15 12/13/22 08:15 Physical Exam Const alert, oriented x3 and no apparent distress HEENT normocephalic Head and Scalp: atraumatic Neck full ROM Resp normal respiratory effort Cardio regular rate GI normal to inspection, nondistended, normoactive bowel sounds GI Narrative: Uterus 2 cm below umbilicus Back/Spine normal ROM Extremity normal to inspection Extremity Narrative: Minimal pedal edema Neuro no focal motor deficits and no sensory deficits noted Psych mental status grossly normal and affect normal Assessment & Plan (1) Severe pre-eclampsia: PLAN: day 3 status post . Complicated by preeclampsia with severe features based on neurologic symptoms and elevated blood pressure. Status post magnesium sulfate x24 hours. Blood pressures well controlled. Labs stable on day 1. Breast-feeding. Plan discharge home today. Baby is getting bili lights, being rechecked this afternoon. BP check this week.
--- NOTE | 2022-12-15 08:06 | DCINST_ITS ---
Discharge Instructions Diet Discharge Diet: No restrictions Activity Discharge Activity: Return to Normal Activity and May Shower May resume sexual activity in: 4-6 weeks Weight Bearing Status: Weight bearing as tolerated Lifting Restrictions: No greater than 25 pounds Dressing / Incision Call your doctor if you observe: Fever of 101 or Higher, Change in Color, Inability to urinate, Using more than 1 pad per hour, Shortness of breath, Dizziness, Swelling in the ankles, Chest pain and Calf discomfort Follow Up Care Please Follow Up With: Cecil Angelo MD When: BP check this week and 4-6-week visit Test Results: Test results from this visit will be discussed in further detail at your follow- up appointment, if applicable. Discharge Plan Admission Admit Date/Time: 12/10/22 14:50 Primary Reason for Your Visit: vaginal delivery, pre-eclampsia Attending Provider: Latesha Angelo Primary Care Provider: Gary Salvador Discharge Orders/Prescriptions Prescriptions: No Action Gummies 1 gummy PO/SL DAILY Referrals / Follow Up: Gary Salvador MD [Primary Care Provider] - Disposition Disposition (needs filled in before D/C Order can be placed): Home, Self Care
[2022-12-15] MEDS: Ibuprofen 600 MG Tablet PO ×2 (08:07→14:21)
--- NOTE | 2022-12-15 08:08 | DS.PCM_ITS ---
Providers Date of Admission: 12/10/22 Primary Care Physician: Gary Salvador MD Reason For Visit: VAG DELIVERY Diagnosis Discharge Diagnosis (1) Severe pre-eclampsia: Status: Acute Code(s): O14.10 - Severe pre-eclampsia, unspecified trimester Plan: day 3 status post . Complicated by preeclampsia with severe features based on neurologic symptoms and elevated blood pressure. Status post magnesium sulfate x24 hours. Blood pressures well controlled. Labs stable on day 1. Breast-feeding. Plan discharge home today. Baby is getting bili lights, being rechecked this afternoon. BP check this week. Medications at Discharge Home Medications Gummies 1 gummy PO/SL DAILY Check with primary doctor 12/10/22 Hospital Course Summary of Care Provided Hospital Course: Patient admitted for induction of labor at 36/6 weeks for severe preeclampsia. Patient progressed through labor and delivered vaginally. She had 24 hours of m agnesium sulfate after delivery, continued from during labor. Blood pressures and labs have been stable throughout admission. Stable for discharge on day 3. She will have a blood pressure check at this week in the office. Signs and symptoms of preeclampsia reviewed. Physical Exam Const alert, oriented x3 and no apparent distress HEENT normocephalic Head and Scalp: atraumatic Neck full ROM Resp normal respiratory effort Cardio regular rate GI normal to inspection, nondistended, normoactive bowel sounds GI Narrative: Uterus 2 cm below umbilicus Back/Spine normal ROM Extremity normal to inspection Extremity Narrative: Minimal pedal edema Neuro no focal motor deficits and no sensory deficits noted Psych mental status grossly normal and affect normal Weight / BMI Weight Weight: 98.6 kg Body Mass Index (BMI) 37.3 ABG / Lab / Microbiology Data Result Diagrams: 12/13/22 08:15 12/13/22 08:15 D/C Instructions Discharge Diet: No restrictions May resume sexual activity in: 4-6 weeks Weight Bearing Status: Weight bearing as tolerated Call your doctor if you observe: Fever of 101 or Higher, Change in Color, Inability to urinate, Using more than 1 pad per hour, Shortness of breath, Dizziness, Swelling in the ankles, Chest pain and Calf discomfort Please Follow Up With: Cecil Angelo MD When: BP check this week and 4-6-week visit Meaningful Use Info Meaningful Use Diagnoses (Choose all that apply): None applicable Discharge Plan Admission Admit Date/Time: 12/10/22 14:50 Primary Reason for Your Visit: vaginal delivery, pre-eclampsia Attending Provider: Latesha Angelo Primary Care Provider: Gary Salvador Discharge Orders/Prescriptions Prescriptions: No Action Gummies 1 gummy PO/SL DAILY Referrals / Follow Up: Gary Salvador MD [Primary Care Provider] - Disposition Disposition (needs filled in before D/C Order can be placed): Home, Self Care
[2022-12-15 08:53] VITALS: BP 129/72; PULSE 84; RESP 16; TEMP 37.2; O2SAT 98
[2022-12-15 14:28] VITALS: BP 126/73; PULSE 98; RESP 16; TEMP 37.2; O2SAT 95
== END 2022-12-15 18:00 | disposition home or self-care (01) | DRG 560 ==
PROVIDERS: Admitting Provider Obstetrics & Gynecology; PCP Family Medicine; Referring Provider Student in an Organized Health Care Education/Training Program; Visit Provider Student in an Organized Health Care Education/Training Program
DX: O14.14 Severe pre-eclampsia complicating childbirth (principal); Z37.0 Single live birth; O70.0 First degree perineal laceration during delivery; Z3A.37 37 weeks gestation of pregnancy; Z90.49 Acquired absence of other specified parts of digestive tract; Z87.891 Personal history of nicotine dependence
CPT/HCPCS: 59025; 59050; 76815; 80053; 81001; 82570; 83615; 83735; 84156; 85025; 86850; 86900; 86901; 99221; J7120; A4216; G0378; J0702; J2405

== ENCOUNTER → 2023-02-14 | Outpatient (CLI) | payer MEDICAID, SELFPAY ==
[2023-02-14 15:19] LABS: Vitamin D,25 Hydroxy 11.9 ng/mL
[2023-02-14 15:24] LABS: Microalbumin,Random Urine 8.7 mg/L (NO RANGE EST.); Microalbumin:Creatinine Ratio 4.6 mg/g CRE (<30 mg/g CRE)
[2023-02-14 15:31] LABS: ALB/GLOB Ratio 0.9 RATIO (0.9-2.4); AST(SGOT) 23 U/L (15-37); Alanine Aminotransfer ALT/SGPT 38 U/L (13-56); Albumin, Serum 3.5 g/dL (3.2-5.0); Alkaline Phosphatase 101 U/L (45-117); Anion Gap 10 (5-15); BUN 11 mg/dL (7-18); Calcium,Total 9.5 mg/dL (8.5-10.1); Chloride 109 mmol/L (98-107); Creatinine, Serum 0.74 mg/dL (0.55-1.02); EST Glomerular Filtration Rate 104 mL/min (>60); Est Glom Filt Rate - Afr Amer 126 mL/min (>60); Globulin 4.1 g/dL (2.2-4.2); Glucose 80 mg/dL (74-106); Potassium 3.7 mmol/L (3.5-5.1); Protein, Total 7.6 g/dL (6.4-8.2); Sodium Level 141 mmol/L (136-145); Thyroid Stim Hormone (TSH) 2.06 uIU/mL (0.358-3.74)
== END | disposition home or self-care (01) ==
PROVIDERS: PCP Family Medicine; Referring Provider Family Medicine; Visit Provider Family Medicine
DX: E55.9 Vitamin D deficiency, unspecified (principal); I10 Essential (primary) hypertension
CPT/HCPCS: 36415; 80053; 82043; 82306; 82570; 84443

== ENCOUNTER → 2023-04-03 | Outpatient (CLI) | payer MEDICAID, SELFPAY ==
[2023-04-03 17:42] LABS: Absolute Lymphocyte Count 2.96 X10^3/uL (0.83-4.51); Basophil# 0.06 X10^3/uL; Basophil% 0.7 % (0-1); Eosinophil# 0.09 X10^3/uL; Hematocrit 42.5 % (37-47); Hemoglobin 13.4 g/dL (12.0-15.0); Lymphocyte # 2.96 X10^3/ul (0.83-4.51); Lymphocyte % 33.8 % (19-41); Mean Corp Hgb Conc 31.5 g/dL (32-36); Mean Corpuscular Hgb 31.4 pg (27.0-32.0); Mean Corpuscular Volume 99.5 fL (81-99); Mean Platelet Vol. 10.2 fl (6.2-12.0); Monocyte# 0.63 X10^3/uL; Monocyte% 7.2 % (0-10); NRBC Flagged by Analyzer 0 % (0-5); Platelet Count 371 K/mm3 (150-450); RBC Distribution Width CV 13.3 % (11.6-14.6); RBC Distribution Width SD 48.8 fl (35.1-43.9); Red Blood Count 4.27 M/mm3 (4.2-5.4); White Blood Count 8.8 K/mm3 (4.4-11.0)
[2023-04-03 18:42] LABS: ALB/GLOB Ratio 0.8 RATIO (0.9-2.4); AST(SGOT) 21 U/L (15-37); Alanine Aminotransfer ALT/SGPT 48 U/L (13-56); Albumin, Serum 3.4 g/dL (3.2-5.0); Alkaline Phosphatase 90 U/L (45-117); Anion Gap 10 (5-15); BUN 11 mg/dL (7-18); BUN/Creat Ratio 12.6 RATIO (10-20); Calcium,Total 9.3 mg/dL (8.5-10.1); Chloride 107 mmol/L (98-107); Creatinine, Serum 0.87 mg/dL (0.55-1.02); EST Glomerular Filtration Rate 86 mL/min (>60); Est Glom Filt Rate - Afr Amer 104 mL/min (>60); Free T3 2.5 pg/mL (2.18-3.98); Globulin 4.1 g/dL (2.2-4.2); Glucose 94 mg/dL (74-106); Potassium 3.8 mmol/L (3.5-5.1); Prolactin 15.6 ng/mL; Protein, Total 7.5 g/dL (6.4-8.2); Sodium Level 140 mmol/L (136-145); T4 Free Direct 0.87 ng/dL (0.76-1.46); Thyroid Stim Hormone (TSH) 1.49 uIU/mL (0.358-3.74)
== END | disposition home or self-care (01) ==
LOC: MFPLAB 14:46
PROVIDERS: PCP Family Medicine; Visit Provider Family Medicine
DX: I10 Essential (primary) hypertension (principal); R45.86 Emotional lability
CPT/HCPCS: 36415; 80053; 84146; 84439; 84443; 84481; 85025

== ENCOUNTER → 2023-05-14 | Outpatient (CLI) | payer MEDICAID, SELFPAY ==
[2023-05-14 18:47] LABS: Vitamin D,25 Hydroxy 46.2 ng/mL
== END | disposition home or self-care (01) ==
LOC: MFPLAB 14:17
PROVIDERS: PCP Family Medicine; Referring Provider Nurse Practitioner Psychiatric/Mental Health; Visit Provider Nurse Practitioner Psychiatric/Mental Health
DX: E55.9 Vitamin D deficiency, unspecified (principal); F19.10 Other psychoactive substance abuse, uncomplicated; R53.83 Other fatigue; Z79.899 Other long term (current) drug therapy
CPT/HCPCS: 36415; 82306

== ENCOUNTER → 2023-06-23 | Outpatient (CLI) | payer MEDICAID, SELFPAY ==
[2023-06-23 17:49] LABS: Absolute Lymphocyte Count 1.95 X10^3/uL (0.83-4.51); Absolute Neutrophil Count 4.7 X10^3/uL (2.0-7.7); Basophil# 0.04 X10^3/uL; Basophil% 0.5 % (0-1); Eosinophil# 0.06 X10^3/uL; Eosinophils% 0.8 % (0-5); Hematocrit 41.1 % (37-47); Hemoglobin 13.1 g/dL (12.0-15.0); Lymphocyte # 1.95 X10^3/ul (0.83-4.51); Lymphocyte % 26.1 % (19-41); Mean Corp Hgb Conc 31.9 g/dL (32-36); Mean Corpuscular Hgb 32.3 pg (27.0-32.0); Mean Corpuscular Volume 101.5 fL (81-99); Mean Platelet Vol. 10.6 fl (6.2-12.0); Monocyte# 0.72 X10^3/uL; Monocyte% 9.6 % (0-10); NRBC Flagged by Analyzer 0 % (0-5); Neutrophil # 4.68 X10^3/uL (2.7-7.7); Neutrophil % 62.6 % (47-70); Platelet Count 309 K/mm3 (150-450); RBC Distribution Width SD 48.9 fl (35.1-43.9); Red Blood Count 4.05 M/mm3 (4.2-5.4); White Blood Count 7.5 K/mm3 (4.4-11.0)
[2023-06-23 18:05] LABS: AST(SGOT) 20 U/L (15-37); Alanine Aminotransfer ALT/SGPT 51 U/L (13-56); Albumin, Serum 3.6 g/dL (3.2-5.0); Alkaline Phosphatase 77 U/L (45-117); Anion Gap 5 (5-15); BUN 16 mg/dL (7-18); BUN/Creat Ratio 19.9 RATIO (10-20); Chloride 109 mmol/L (98-107); EST Glomerular Filtration Rate 94 mL/min (>60); Est Glom Filt Rate - Afr Amer 113 mL/min (>60); Globulin 3.6 g/dL (2.2-4.2); Glucose 90 mg/dL (74-106); Potassium 3.9 mmol/L (3.5-5.1); Protein, Total 7.2 g/dL (6.4-8.2); Sodium Level 140 mmol/L (136-145)
[2023-07-01 16:09] LABS: Testosterone Free 0.9 pg/mL (0.0-4.2)
== END | disposition home or self-care (01) ==
LOC: MFPLAB 14:44
PROVIDERS: PCP Family Medicine; Visit Provider Family Medicine
DX: K06.1 Gingival enlargement (principal); F41.9 Anxiety disorder, unspecified
CPT/HCPCS: 36415; 80053; 82533; 82627; 84402; 85025; 82626

== ENCOUNTER → 2023-06-30 | Outpatient (CLI) | payer MEDICAID, SELFPAY ==
[2023-06-30 17:51] LABS: Absolute Lymphocyte Count 2.77 X10^3/uL (0.83-4.51); Basophil# 0.05 X10^3/uL; Basophil% 0.6 % (0-1); Eosinophil# 0.08 X10^3/uL; Eosinophils% 0.9 % (0-5); Hematocrit 43.2 % (37-47); Hemoglobin 13.7 g/dL (12.0-15.0); Lymphocyte # 2.77 X10^3/ul (0.83-4.51); Lymphocyte % 31.3 % (19-41); Mean Corp Hgb Conc 31.7 g/dL (32-36); Mean Corpuscular Volume 100.9 fL (81-99); Mean Platelet Vol. 10.1 fl (6.2-12.0); Monocyte# 0.92 X10^3/uL; Monocyte% 10.4 % (0-10); NRBC Flagged by Analyzer 0 % (0-5); Neutrophil % 56.3 % (47-70); Platelet Count 356 K/mm3 (150-450); RBC Distribution Width SD 48.6 fl (35.1-43.9); Red Blood Count 4.28 M/mm3 (4.2-5.4); White Blood Count 8.9 K/mm3 (4.4-11.0)
[2023-06-30 18:26] LABS: Vitamin B12 195 pg/mL (211-911)
== END | disposition home or self-care (01) ==
LOC: MFPLAB 15:28
PROVIDERS: PCP Family Medicine; Visit Provider Family Medicine
DX: K06.1 Gingival enlargement (principal)
CPT/HCPCS: 36415; 82607; 82746; 85025

== ENCOUNTER → 2023-07-04 | Outpatient (CLI) | payer MEDICAID, SELFPAY ==
[2023-07-04 18:08] LABS: Homocysteine 6.1 umol/L (3.2-10.7)
[2023-07-11 19:07] LABS: Anti-Parietal Cell AB, QN 1.7 Units (0.0-20.0); Intrinsic Factor Ab 2.8 AU/mL (0.0-1.1)
== END | disposition home or self-care (01) ==
LOC: LAB.FUTURE 15:24
PROVIDERS: PCP Family Medicine; Visit Provider Family Medicine
DX: E53.8 Deficiency of other specified B group vitamins (principal)
CPT/HCPCS: 36415; 83090; 83516; 86340

== ENCOUNTER → 2023-08-11 | Outpatient (CLI) | payer MEDICAID, SELFPAY ==
--- NOTE | 2023-08-11 15:30 | RAD_ITS ---
STUDY: X-RAY - LEFT KNEE REASON FOR EXAM: Female, 23 years old. pain TECHNIQUE: 4 view(s) of the knee. COMPARISON: None. FINDINGS: Normal visualized distal femur. Normal visualized proximal tibia and fibula. Normal proximal tibiofibular articulation. There is no demonstrated fracture. Normal medial femorotibial compartment. Normal lateral femorotibial compartment. Normal patellofemoral articulation. There is no demonstrated joint effusion. The soft tissue structures are unremarkable. RAD/Knee 4 or More Views IMPRESSION: Unremarkable x-ray examination of the knee. Electronically Signed: Emily Coombs MD at 22:31 EDT ,
== END | disposition home or self-care (01) ==
LOC: MTRAD 15:25
PROVIDERS: PCP Family Medicine; Referring Provider Family Medicine; Visit Provider Family Medicine
DX: M25.562 Pain in left knee (principal)
CPT/HCPCS: 73564

== ENCOUNTER → 2023-08-22 | Outpatient (CLI) | payer MEDICAID, SELFPAY ==
[2023-08-22 15:11] LABS: Absolute Lymphocyte Count 2.87 X10^3/uL (0.83-4.51); Basophil# 0.07 X10^3/uL; Basophil% 0.7 % (0-1); Eosinophil# 0.07 X10^3/uL; Eosinophils% 0.7 % (0-5); Hematocrit 43.7 % (37-47); Hemoglobin 13.7 g/dL (12.0-15.0); Lymphocyte # 2.87 X10^3/ul (0.83-4.51); Mean Corp Hgb Conc 31.4 g/dL (32-36); Mean Corpuscular Hgb 32.2 pg (27.0-32.0); Mean Corpuscular Volume 102.6 fL (81-99); Mean Platelet Vol. 10.1 fl (6.2-12.0); Monocyte# 0.88 X10^3/uL; Monocyte% 8.9 % (0-10); NRBC Flagged by Analyzer 0 % (0-5); Neutrophil # 5.96 X10^3/uL (2.7-7.7); Neutrophil % 60.3 % (47-70); Platelet Count 357 K/mm3 (150-450); RBC Distribution Width CV 12.5 % (11.6-14.6); RBC Distribution Width SD 47.1 fl (35.1-43.9); Red Blood Count 4.26 M/mm3 (4.2-5.4); White Blood Count 9.9 K/mm3 (4.4-11.0)
[2023-08-22 16:09] LABS: Vitamin B12 780 pg/mL (211-911)
[2023-08-22 16:20] LABS: Microalbumin:Creatinine Ratio 5.4 mg/g CRE (<30 mg/g CRE)
[2023-08-22 16:24] LABS: ALB/GLOB Ratio 0.9 RATIO (0.9-2.4); AST(SGOT) 17 U/L (15-37); Alanine Aminotransfer ALT/SGPT 44 U/L (13-56); Albumin, Serum 3.5 g/dL (3.2-5.0); Alkaline Phosphatase 88 U/L (45-117); Anion Gap 3 (5-15); BUN 12 mg/dL (7-18); BUN/Creat Ratio 15.1 RATIO (10-20); Chloride 112 mmol/L (98-107); Creatinine, Serum 0.79 mg/dL (0.55-1.02); EST Glomerular Filtration Rate 95 mL/min (>60); Est Glom Filt Rate - Afr Amer 115 mL/min (>60); Globulin 3.8 g/dL (2.2-4.2); Glucose 94 mg/dL (74-106); Potassium 4.3 mmol/L (3.5-5.1); Protein, Total 7.3 g/dL (6.4-8.2); Sodium Level 140 mmol/L (136-145)
== END | disposition home or self-care (01) ==
LOC: MFPLAB 12:32
PROVIDERS: PCP Family Medicine; Visit Provider Family Medicine
DX: I10 Essential (primary) hypertension (principal); E53.8 Deficiency of other specified B group vitamins
CPT/HCPCS: 36415; 80053; 82043; 82570; 82607; 82746; 85025

== ENCOUNTER → 2024-01-09 | Outpatient (CLI) | payer MEDICAID, SELFPAY ==
--- OUTSIDE RECORDS SUMMARY | 2024-01-09 10:44 | XMS RPT_ITS | CCD ---
Author Name Unknown Address [address] [place] [address] Organization [facility] Care Team Providers Care Field Sales Consultant Name Role Phone Gary Salvador Primary Care Provider [phone] PROVIDER, UNKNOWN Referring Unavailable Luciano Shields Attending Unavailable No, PCP Primary Care Unavailable Gary Salvador Primary Care Provider SHARONDA MOLINA Attending Unavailable SALVADOR, GARY Primary Care Unavailable LORENZA ERICKSON Attending Unavailable SALVADOR, GARY Primary Care Unavailable LORENZA ERICKSON Admitting Unavailable SALVADOR, GARY Primary Care Unavailable BOOGIE PICKERING Attending Unavailable LORENZA ERICKSON Attending Unavailable SALVADOR, GARY Primary Care Unavailable LORENZA ERICKSON Attending Unavailable SHARONDA MOLINA Referring Unavailable SALVADOR, GARY Primary Care Unavailable SHARONDA MOLINA Attending Unavailable TRACY, SHARONDA Referring Unavailable SALVADOR, GARY Primary Care Unavailable SHARONDA MOLINA Attending Unavailable SALVADOR, GARY Primary Care Unavailable Allergies Allergy Classification Reported Allergen(s) Allergy Type Date of Onset Reaction(s) Facility (11 sources) HYDROcodone Drug Allergy 04-27-2020 Itching, Rash, Hives [facility] NEGATED: Highlighted row has been ruled out! (1 source) Other Propensity to adverse reactions 08-09-2022 Rash [facility] Medications Current Medications Medication Drug Class(es) Dates Sig (Normalized) Sig (Original) acetaminophen 500 mg oral tablet (6 sources) Start: 12-08-2023 End: 01-07-2024 take 1 tablet by mouth every six hours as needed for pain acetaminophen (Tylenol Extra Strength) 500 MG tablet Take 1 tablet (500 mg) by mouth every 6 hours as needed for mild pain (1-3). 60 tablet 0 12/08/2023 01/07/2024 Active Completed/Discontinued Medications Medication Drug Class(es) Dates Sig (Normalized) Sig (Original) ALPRAZolam 0.25 mg disintegrating oral tablet (3 sources) Benzodiazepine Start: 12-08-2023 End: 12-08-2023 ALPRAZolam (Xanax) disintegrating tablet 0.25 mg Problems Active Problems Problem Classification Problem Date Documented Date Episodic/Chronic Endometriosis (11 sources) Endometriosis (clinical); Translations: [Endometriosis, unspecified] Onset: 04-08-2022 04-08-2022 Chronic Other complications of (10 sources) Obesity complicating , unspecified trimester; Translations: [Obesity complicating , childbirth, or the puerperium, antepartum condition or complication] Onset: 06-12-2022 06-14-2022 Chronic Other complications of (2 sources) Unspecified infection of urinary tract in , second trimester; Translations: [Unsp infct of urinary tract in , second trimester] Onset: 08-09-2022 Episodic Other complications of (2 sources) Other specified related conditions, second trimester; Translations: [Oth related conditions, second trimester] Onset: 08-09-2022 Episodic Other female genital disorders (11 sources) Abnormal uterine bleeding; Translations: [Abnormal uterine and vaginal bleeding, unspecified] Onset: 04-08-2022 04-08-2022 Chronic Other nervous system disorders (3 sources) Chronic pain; Translations: [Other chronic pain] Onset: 08-21-2023 12-08-2023 Chronic Other nervous system disorders (1 source) Other chronic pain; Translations: [Other chronic pain] Onset: 09-13-2022 Chronic Other nervous system disorders (2 sources) Acute postoperative pain; Translations: [Other acute postprocedural pain] 12-08-2023 Episodic Other nervous system disorders (2 sources) Other acute postprocedural pain; Translations: [Other acute postprocedural pain] Onset: 12-08-2023 Episodic Residual codes; unclassified (2 sources) 19 weeks gestation of ; Translations: [19 weeks gestation of ] Onset: 08-09-2022 Episodic Residual codes; unclassified (1 source) Postoperative state; Translations: [Other specified postprocedural states] 12-22-2023 Episodic Residual codes; unclassified (2 sources) Other specified postprocedural states; Translations: [Other specified postprocedural states] Onset: 12-22-2023 Episodic Urinary tract infections (7 sources) Chronic interstitial cystitis; Translations: [Interstitial cystitis (chronic) without hematuria] Onset: 08-21-2023 08-21-2023 Chronic Urinary tract infections (3 sources) Urinary tract infectious disease; Translations: [Urinary tract infection, site not specified] Onset: 08-09-2022 Episodic Past or Other Problems Problem Classification Problem Date Documented Date Episodic/Chronic Abdominal pain (20 sources) Chronic pelvic pain of female; Translations: [Pelvic and perineal pain] Onset: 04-08-2022 Episodic Genitourinary symptoms and ill-defined conditions (11 sources) Bladder pain; Translations: [Other symptoms and signs involving the genitourinary system] Onset: 04-08-2022 04-08-2022 Episodic Other complications of (10 sources) Rubella non-immune; Translations: [Rubella non-immune status, antepartum] Onset: 06-12-2022 06-12-2022 Episodic Other complications of (10 sources) Abdominal pain in ; Translations: [Other specified related conditions, unspecified trimester] Onset: 08-09-2022 08-09-2022 Episodic Other and delivery including normal (10 sources) Patient encounter status; Translations: [Encounter for supervision of normal , unspecified, unspecified trimester] Onset: 06-12-2022 08-01-2022 Episodic Results Test Name Value Interpretation Reference Range Facil ity Vital Signs Date Time Vital Sign Value Performing Clinician Danielle davidson 12-22-2023 11:01-0500 Body mass index (BMI) [Ratio] 36.9 kg/m2 Boogie Cameron PA Work Phone: [employer] 12-22-2023 11:01-0500 Body weight 97.52 kg Boogie Cameron PA Work Phone: [employer] 12-22-2023 11:01-0500 Diastolic blood pressure 89 mm[Hg] Boogie Cameron PA Work Phone: [employer] 12-22-2023 11:01-0500 Heart rate 89 /min Boogie Cameron PA Work Phone: [employer] 12-22-2023 11:01-0500 Systolic blood pressure 140 mm[Hg] Boogie Pickering PA Work Phone: [employer] 12-08-2023 15:30-0500 Body temperature 97.2 [degF] Lorenza Dre DO Work Phone: [employer] 12-08-2023 15:30-0500 Diastolic blood pressure 73 mm[Hg] Lorenza Dre DO Work Phone: [employer] 12-08-2023 15:30-0500 Heart rate 88 /min Lorenza Dre DO Work Phone: [employer] 12-08-2023 15:30-0500 Respiratory rate 18 /min Lorenza Dre DO Work Phone: [employer] 12-08-2023 15:30-0500 SaO2% (BldA) [Mass fraction] 98 % Lorenza Dre DO Work Phone: [employer] 12-08-2023 15:30-0500 Systolic blood pressure 119 mm[Hg] Lorenza Dre D O Work Phone: [employer] 12-08-2023 11:26-0500 Body height 162.6 cm Lorenza Dre DO Work Phone: [employer] 12-08-2023 11:26-0500 Body mass index (BMI) [Ratio] 37.08 kg/m2 Lorenza Dre DO Work Phone: [employer] 12-08-2023 11:26-0500 Body weight 97.98 kg Lorenza Dre DO Work Phone: [employer] 09-18-2023 14:09-0400 Body height 162.6 cm Lorenza Dre DO Work Phone: [employer] 09-18-2023 14:09-0400 Body mass index (BMI) [Ratio] 36.36 kg/m2 Lorenza Dre DO Work Phone: [facility] [employer] 09-18-2023 14:09-0400 Body weight 96.07 kg Lorenza Dre DO Work Phone: [facility] 09-18-2023 14:09-0400 Diastolic blood pressure 75 mm[Hg] Lorenza Dre DO Work Phone: [facility] 09-18-2023 14:09-0400 Heart rate 112 /min Lorenza Dre DO Work Phone: [facility] 09-18-2023 14:09-0400 Systolic blood pressure 120 mm[Hg] Lorenza Dre D O Work Phone: [facility] 08-21-2023 10:49-0400 Body height 162.6 cm Sharonda Tracy DO Work Phone: [facility] 08-21-2023 10:49-0400 Body mass index (BMI) [Ratio] 36.05 kg/m2 Sharonda Tracy DO Work Phone: [facility] 08-21-2023 10:49-0400 Body weight 95.25 kg Sharonda Tracy DO Work Phone: [facility] 08-21-2023 10:49-0400 Diastolic blood pressure 89 mm[Hg] Sharonda Tracy DO Work Phone: [facility] 08-21-2023 10:49-0400 Heart rate 108 /min Sharonda Tracy DO Work Phone: [facility] 08-21-2023 10:49-0400 Systolic blood pressure 123 mm[Hg] Sharonda Tracy DO Work Phone: [facility] 08-09-2022 14:48-0400 Body temperature 97.9 [degF] Luciano Shields MD Work Phone: [facility] 08-09-2022 14:48-0400 Diastolic blood pressure 75 mm[Hg] Luciano Shields MD Work Phone: [facility] 08-09-2022 14:48-0400 Heart rate 93 /min Luciano Shields MD Work Phone: [facility] 08-09-2022 14:48-0400 Respiratory rate 20 /min Luciano Shields MD Work Phone: [facility] 08-09-2022 14:48-0400 SaO2% (BldA) [Mass fraction] 100 % Luciano Shields MD Work Phone: [facility] 08-09-2022 14:48-0400 Systolic blood pressure 134 mm[Hg] Luciano simons MD Work Phone: [facility] 05-03-2022 12:30-0400 Body height 162.6 cm Nola Isabel MD Work Phone: [facility] 05-03-2022 12:30-0400 Body mass index (BMI) [Ratio] 30.04 kg/m2 Nola Isabel MD Work Phone: [facility] 05-03-2022 12:30-0400 Body temperature 97.9 [degF] Nola Isabel MD Work Phone: [facility] 05-03-2022 12:30-0400 Body weight 79.38 kg Nola Isabel MD Work Phone: [facility] 05-03-2022 12:30-0400 Diastolic blood pressure 88 mm[Hg] Nola Isabel MD Work Phone: [facility] 05-03-2022 12:30-0400 Heart rate 77 /min Nola Isabel MD Work Phone: [facility] 05-03-2022 12:30-0400 Respiratory rate 12 /min Nola Isabel MD Work Phone: [facility] 05-03-2022 12:30-0400 SaO2% (BldA) [Mass fraction] 98 % Nola Isabel MD Work Phone: [facility] 05-03-2022 12:30-0400 Systolic blood pressure 132 mm[Hg] Nola Isabel MD Work Phone: [facility] Encounters Encounter Date Encounter Type Care Provider Facility Start: 12-22-2023 End: 12-22-2023 ambulatory GARY SALVADOR [facility] Start: 12-22-2023 End: 12-22-2023 Postop follow up visit related to original px Boogie HURTADO Work Phone: [facility] Procedures Date Procedure Procedure Detail Performing Clinician Start: 12-08-2023 Urine test visual color tesharsn trina Travis MD Work Phone: Start: 08-09-2022 ADD ON LAB TEST Dee Dee Shields MD Work Phone: Start: 08-09-2022 Us uterus l imited 1/> fetuses Luciano Shields MD Work Phone: Start: 08-09-2022 Us retroperitoneal r eal time w/image complete Luciano Shields MD Work Phone: Start: 08-09-2022 Urnls dip stick/tabl et rgnt auto w/o microscopy Luciano Shields MD Work Phone: Start: 08-09-2022 Comprehensive metabo lic panel Luciano Shields MD Work Phone: Start: 06-12-2022 Microscopic observat ion [Identifier] in Cervix by Cyto stain Luciano Shields MD Work Phone: Start: 05-03-2022 End: 05-03-2022 Gonadotropin chorionic qualitative Nola sIabel MD Work Phone: Start: 05-03-2022 Urine test visual color cmprsn trina Zamorano MD Work Phone: Plan of Treatment Date Care Activity Detail Author Start: 2060 RSV Immunization aged 60 or older (1 - 1-dose 60+ series) RSV Immunization aged 60 or older (1 - 1-dose 60+ series) [facility] Start: 02-06-2050 Zoster Vaccines (1 of 2) Zoster Vaccines (1 of 2) [facility] Start: 06-12-2025 Screening for malignant neoplasm of cervix Pap smear [facility] Start: 01-19-2024 End: 01-19-2024 Patient encounter procedure 01/19/2024 11:30 AM EST Office Visit [facility] [address] [place] [address] Boogie Pickering PA [address] [place] [address] [facility] Start: 01-12-2024 End: 01-12-2024 Patient encounter procedure 01/12/2024 10:00 AM EST Office Visit [facility] [address] [place] [address] Kylah Jurado APRN ZULAY [address] [place] [address] [facility] Start: 12-22-2023 End: 12-22-2023 Patient encounter procedure 12/22/2023 11:00 AM EST Office Visit [facility] [address] [place] [address] Boogie Pickering PA [address] [place] [address] [facility] Start: 09-25-2023 End: 09-25-2023 Telemedicine consultation with patient 09/25/2023 1:00 PM EDT Telemedicine [facility] [address] [place] [address] Sharonda Molina DO [address] [place] [phone] [facility] Start: 09-18-2023 End: 09-18-2023 Patient encounter procedure 09/18/2023 2:15 PM EDT Office Visit [facility] [address] [place] [address] Dre, Lorenza, DO [address] [place] [address] [facility] Start: 09-11-2023 End: 09-11-2023 Telemedicine consultation with patient 09/11/2023 1:00 PM EDT Telemedicine [facility] [address] [place] [phone] Sharonda Molina, DO [address] [place] [phone] [facility] Start: 08-22-2023 End: 08-22-2023 Patient encounter procedure 08/22/2023 8:00 AM EDT Appointment [facility] [address] [place] [phone] Sharonda Molina, DO [address] [place] [address] [facility] [place] Start: 08-21-2023 End: 02-19-2024 US Pelvis transvaginal US pelvis transvaginal Imaging Routine Chronic pelvic pain in female Expected: 08/21/2023 (Approximate), Expires: 02/19/2024 [facility] Work Phone: Payers Date Payer Category Payer Medicaid 2023 Medicaid [id number] 2021 Unknown [employer] [id number] 2021-Present [phone] [address] [place] [address] [id number] 2000 Unknown [id number] Social History Date Type Detail Facility Start: 04-19-2022 End: 09-18-2023 Tobacco smoking status WIIS Never smoked tobacco [facility] Start: 04-19-2022 End: 09-18-2023 Tobacco use and exposure Smokeless tobacco non-user [facility] Work Phone: Start: 05-03-2022 End: 12-22-2023 Alcohol intake Current drinker of alcohol (finding) [facility] Work Phone: Start: 04-26-2022 History SDOH Alcohol Comment occas [facility] Work Phone: Start: 2000 Sex Assigned At Female [facility] Start: 04-23-2022 End: 08-22-2023 Exposure to SARS-CoV-2 (event) Not sure [facility] Work Phone: Start: 08-09-2022 End: 09-18-2023 Alcohol intake Ex-drinker (finding) [facility] Work Phone: Start: 05-20-2022 History SDOH Alcohol Frequency 2 [facility] Work Phone: Start: 05-20-2022 History SDOH Alcohol Std Drinks 1 [employer] Work Phone: Start: 05-20-2022 History SDOH Social Connections Phone 3 [facility] Work Phone: Start: 05-20-2022 History SDOH Social Connections Living 8 [facility] Work Phone: Start: 05-20-2022 History SDOH Physica l Activity DPW 4 [facility] Work Phone: Start: 05-20-2022 History SDOH Physica l Activity MPS 12 [facility] Work Phone: Start: 04-10-2022 [employer] Work Phone: Start: 08-21-2023 End: 12-22-2023 History of Social function [facility] Start: 08-21-2023 End: 12-22-2023 Tobacco use panel [facility] Start: 09-19-2022 Gender identity Identifies as female gender (finding) [facility] Start: 09-19-2022 Sexual orientation Heterosexual (fin ding) [facility] Start: 12-02-2023 Alcohol Comment once a month [facility] NEGATED: Highlighted rowStart: NINF History of tobacco use Passive smoker [facility] Clinical Notes 05-03-2022 to 12-22-2023 BRYANT Ramirez - 12/22/2023 11:00 AM ESTPerioperative Nursing Note - Conchis Jenkins, DAVID - 12/08/2023 3:37 PM ESTPerioperative Nursing Note - Kristi Molina RN - 12/08/2023 3:05 PM EST Note Date & Type Note Facility 12-22-2023 History of Presen t illness Narrative Images from the original note were not included. CC: patient here for post-op visit s/p Diagnostic laparoscopy, Excision of Endometriosis on 12/08/23. Denies f/c, n/v, CP, or SOB. Eating and drinking normally. Moving around as well as she can. Denies bowel or bladder complaints. Overall doing very well since surgery. Op Note Surgical Findings: Normal external genitalia with full exam noted in Dr. Erickson op note. Abdominal survey normal with no intraabdominal adhesions. Normal appearing stomach, liver, and gallbladder. Normal appearing uterus, fallopian tubes, and ovaries bilaterally. Small 1-2mm powder burn lesion noted just lateral to the left uterosacral ligament. No other powder burn lesions or evidence of endometriosis noted in the abdomen including along the side canela, diaphragm, and ovarian fossas. Fibrosis noted along the right uterosacral ligament and right ovarian fossa. Pathology: Final Diagnosis A. LEFT UTEROSACRAL IMPLANT, BIOPSY: FIBROADIPOSE TISSUE WITH PATCHY DECIDUALIZED ENDOMETRIAL STROMA SUGGESTIVE OF ENDOMETRIOSIS. B. RIGHT UTEROSACRAL, BIOPSY: PERITONEALIZED FIBROADIPOSE AND SMOOTH MUSCLE WITH DECIDUALIZED ENDOMETRIOSIS. BP (!) 140/89 (BP Location: Left arm, Patient Position: Sitting, BP Cuff Size: Large adult) Pulse 89 Wt 215 lb (97.5 kg) BMI 36.90 kg/m Physical Exam Vitals reviewed. Constitutional: General: She is not in acute distress. Appearance: Normal appearance. She is not ill-appearing or toxic-appearing. HENT: Head: Normocephalic and atraumatic. Pulmonary: Effort: Pulmonary effort is normal. No respiratory distress. Abdominal: Palpations: Abdomen is soft. Comments: Incisions c/d/i Neurological: Mental Status: She is alert. Mental status is at baseline. Psychiatric: Mood and Affect: Mood normal. Behavior: Behavior normal. Judgment: Judgment normal. Assessment: Post op Chronic pelvic pain Interstitial cystitis/Bladder pain syndrome Plan: Path and pics reviewed, benign. Meeting milestones and doing well. Precautions reviewed. All questions and concerns answered. Work note provided to return next week on light duty. Follow up at 6 weeks post op to assess how she is doing and clear from precautions. documented in this encounter [facility] 12-08-2023 Note Patient: Poncho emerson Procedure Summary Date: 12/08/23 Room / Location: [address] Operating Room Anesthesia Start: 1305 Anesthesia Stop: 1417 Procedures: PELVIC EXAMINATION UNDER ANESTHESIA, CYSTOSCOPY WITH HYDRODISTENTION, TRIGGER POINT INJECTIONS, PUDENDAL NERVE BLOCK, DIAGNOSTIC LAPAROSCOPY, LAPAROSCOPIC EXCISION OF ENDOMETRIOSIS CYSTOSCOPY DILATION OF BLADDER (GENERAL OR SPINAL ANESTHESIA) (Urethra) INJECTION(S) SINGLE OR MULTIPLE TRIGGER POINTS 1 0R 2 MUSCLES INJECTION ANESTHETIC AGENT PUDENDAL NERVE LAPAROSCOPY FULGURATION/EXCISION OF LESIONS (Abdomen) DIAGNOSTIC LAPAROSCOPY (Abdomen) LAPAROSCOPY FULGURATION/EXCISION OF LESIONS (Abdomen) Diagnosis: Interstitial cystitis (chronic) without hematuria Pelvic and perineal pain Other chronic pain (Interstitial cystitis (chronic) without hematuria [N30.10]) (Pelvic and perineal pain [R10.2]) (Other chronic pain [G89.29]) Surgeons: Lorenza Erickson DO; Sharonda Molina DO Responsible Provider: Tomy Zamorano MD Anesthesia Type: general, regional ASA Status: 2 Anesthesia Type: general, regional Vitals Value Taken Time BP 98/50 12/08/23 1419 Temp 36.4 ?C (97.5 ?F) 12/08/23 1419 Pulse 74 12/08/23 1422 Resp 19 12/08/23 1422 SpO2 100 % 12/08/23 1422 Vitals shown include unfiled device data. Anesthesia Post Evaluation Patient location during evaluation: PACU Patient participation: complete - patient cannot participate Level of consciousness: sleepy but conscious Pain management: satisfactory to patient Airway patency: patent Dental Injury: no Cardiovascular status: acceptable, blood pressure returned to baseline and hemodynamically stable Respiratory status: acceptable, spontaneous ventilation, face mask and oral airway Hydration status: euvolemic Nausea/Vomiting: controlled No notable events documented. Patient can be discharged once all PACU criteria has been met. [facility] 12-08-2023 Note Patient: Poncho emerson Procedure Summary Date: 12/08/23 Room / Location: [address] Operating Room Anesthesia Start: 1305 Anesthesia Stop: 1417 Procedures: PELVIC EXAMINATION UNDER ANESTHESIA, CYSTOSCOPY WITH HYDRODISTENTION, TRIGGER POINT INJECTIONS, PUDENDAL NERVE BLOCK, DIAGNOSTIC LAPAROSCOPY, LAPAROSCOPIC EXCISION OF ENDOMETRIOSIS CYSTOSCOPY DILATION OF BLADDER (GENERAL OR SPINAL ANESTHESIA) (Urethra) INJECTION(S) SINGLE OR MULTIPLE TRIGGER POINTS 1 0R 2 MUSCLES INJECTION ANESTHETIC AGENT PUDENDAL NERVE LAPAROSCOPY FULGURATION/EXCISION OF LESIONS (Abdomen) DIAGNOSTIC LAPAROSCOPY (Abdomen) LAPAROSCOPY FULGURATION/EXCISION OF LESIONS (Abdomen) Diagnosis: Interstitial cystitis (chronic) without hematuria Pelvic and perineal pain Other chronic pain (Interstitial cystitis (chronic) without hematuria [N30.10]) (Pelvic and perineal pain [R10.2]) (Other chronic pain [G89.29]) Surgeons: Lorenza Erickson DO; Sharonda Molina DO Responsible Provider: Tomy Zamorano MD Anesthesia Type: general, regional ASA Status: 2 Anesthesia Type: general, regional Vitals Value Taken Time BP 98/50 12/08/23 1419 Temp 36.4 ?C (97.5 ?F) 12/08/23 1419 Pulse 74 12/08/23 1422 Resp 19 12/08/23 1422 SpO2 100 % 12/08/23 1422 Vitals shown include unfiled device data. Anesthesia Post Evaluation Patient location during evaluation: PACU Patient participation: complete - patient cannot participate Level of consciousness: sleepy but conscious Pain management: satisfactory to patient Multimodal analgesia pain management approach Airway patency: patent Two or more strategies used to mitigate risk of obstructive sleep apnea Cardiovascular status: acceptable and hemodynamically stable Respiratory status: acceptable, face mask and oral airway Hydration status: acceptable No notable events documented. MIPS #[id number] PONV Patient received an inhalational anesthetic (4554F) Patient exhibits three or more risk factors for PONV (4556F) Patient received at leaset 2 prophylactic Rx PONV anti-emtic agents of different classes preop and/or intraop (G9775) MIPS # [phone] Perioperative Temperature Management Anesthesia time was 60 minutes or longer (4255F) Anesthesai administered was General (inhalational or TIVA) or Neuraxial block (X0424) At least one body temperature greater than 95.8F/35.5C achieved within the 30 mins immediately prior to or the 15 minutes immediately following anesthesia end time (G9771) MIPS #477 Multimodal Pain Management Not emergent case Patient was administered multimodal pain management (two or more drugs and/or interventions excluding systemic opioids) in the periopeartive period occurring at some time between 6 hours prior to anesthesia start time until discharged from PACU (G2148) MIPS #404 Anesthesiology Smoking Abstinence The patient is not a current smoker (e.g. cigarette, cigar, pipe, e-cigarette/vaping/marijuana) If no stop here (G9644) I completed my handoff to the receiving clinician during which we: 1. Identified the patient 2. Identified the responsible provider 3. Reviewed the pertinent medical history 4. Discussed the surgical course 5. Reviewed intra-op anesthesia management and issues during anesthesia 6. Set expectations for post-procedure period 7. Allowed opportunity for questions and acknowledgement of understanding. [facility] 12-08-2023 Note Formatting of this n ote might be different from the original. Patient ambulated around room and tolerated well. Patient is now getting changed prior to being discharged. [facility] 12-08-2023 Note Formatting of this n ote might be different from the original. Patient ambulated around room and tolerated well. Patient is now getting changed prior to being discharged. [facility] 12-08-2023 Miscellaneous Notes Patient ambulated around room and tolerated well. Patient is now getting changed prior to being discharged. Discharge instructions reviewed with patient and her visitor, no further questions at this time. Patient family/visitor updated by RN at this time. Call to [place] [place] Images from the original note were not included. Operative Note Department of Urogynecology Patient: Poncho Case : 2000 Date of Procedure: 12/08/2023 Pre-operative Diagnosis: 23 yo female with chronic pelvic pain, urinary urgency and frequency refractory to medical intervention presents for surgery at the time of her diagnostic laparoscopy with Dr. Molina. Risks, benefits and alternatives were again reviewed and she elected to proceed. Post-operative Diagnosis: Same+ Interstitial Cystitis Procedure: pelvic exam under anesthesia, Cystoscopy with hydrodistention, trigger point injections, pudendal nerve block Surgeon: Lorenza Erickson DO Pot Filler(s): Dr. Moe Anesthesia: general Findings: EUA notable for bilateral spasm of Obturator internus muscles bilaterally with minimal spasm of bilateral pubococcygeus. Cystoscopy: grossly normal urothelium without lesions or masses, mild trabeculations; petechial hemorrhages in 4/4 quadrants; no Hunners ulcers; during evaluation of bilateral ureteral efflux mucous like sediment was noted so the specimen was sent for culture. Bladder capacity 600mL Total IV fluids/Blood products: 1000 ml crystalloid Urine Output: 500 ml Estimated blood loss: Minimal Specimens: urine culture by or; peritoneal biopsies by Dr. Molina Instrument and Sponge Count: Correct x 2 per nursing Complications: None Operative note: After verifying written consent, the patient was taken to the operating room where she correctly identified herself. She was placed in supine position on the operating room table. She was placed under general anesthesia. Once anesthesia was noted to be achieved, she was placed in a dorsal lithotomy position with Young Yellofin stirrups. She was prepped and draped in normal sterile fashion. A proper time-out was performed. A 70 degree cystoscope was inserted into the bladder, which was noted to be free of any tumors, lesions, stones and with trabeculations. The entirety of bladder was visualized. The patient's bladder was filled to capacity, which was noted to be 600mL. On slow decompression, there was noted to be petechial hemorrhages in 4/4 quadrants of the bladder. The bladder was again filled to capacity and drained once again with similar findings. During evaluation of ureteral efflux, there was mucous like sediment seen effluxing from both ureteral orifices, so a culture was obtained and she will be started on empiric outpatient antibiotics. Trigger Point Injections Examination was performed to identify trigger points for peripheral nerve block. The area over the identified myofascial spasm(s) was previously prepped in sterile fashion. The needle was placed in the center of the identified area and aspiration was performed to ensure the needle tip was not intravascular. Injection of local anesthetic was performed. Anesthetic Agent: Bupivacaine 0.25% + epinephrine Site 1: Location: right levator ani muscle Injection Volume: 2.5mL Site 2: Location: right obturator internus muscle Injection Volume: 2.5mL Site 3: Location: left levator ani muscle Injection Volume: 2.5mL Site 4: Location: left obturator internus muscle Injection Volume: 2.5mL Pudendal Nerve Block The right ischial spine and sacrospinous ligament were identified. The trumpet needle guide was introduced into the vaginal canal and placed against the vaginal epithelium on the sacrospinous ligament approximately 1 cm medial and inferior to the ischial spine. The needle was placed through the trumpet guide and advanced through the vaginal epithelium and sacrospinous ligament into the space behind the ligament. Aspiration was performed to ensure the needle tip was not intravascular. 10 cc of a solution of 0.25% bupivicaine with epinephrine mixed was injected. The same procedure was performed on the patient's left. The procedure was noted to be complete. The patient was placed back in supine position and awoken from general anesthesia. All counts were correct x2 per nursing. The patient was transported to recovery in stable condition. Lorenza Erickson DO 12/08/2023, 2:14 PM Images from the original note were not included. Operative Note Department of Obstetrics and Gynecology Patient: Poncho Case : 2000 Date of Procedure: 12/08/23 Pre-operative Diagnosis: 23 y.o. female 1. Chronic pelvic pain 2. Interstitial cystitis/Bladder pain syndrome Post-operative Diagnosis: Same Procedure: Diagnostic laparoscopy, Excision of Endometriosis Surgeon: Dr. Sharonda Molina Pot Filler(s): Dr. Jenn Moe Anesthesia: General ET, TAP block Antibiotics: Not indicated but discharged home with Keflex x7 days (see Dr. Erickson operative note for further details) Findings: Normal external genitalia with full exam noted in Dr. Erickson op note. Abdominal survey normal with no intraabdominal adhesions. Normal appearing stomach, liver, and gallbladder. Normal appearing uterus, fallopian tubes, and ovaries bilaterally. Small 1-2mm powder burn lesion noted just lateral to the left uterosacral ligament. No other powder burn lesions or evidence of endometriosis noted in the abdomen including along the side canela, diaphragm, and ovarian fossas. Fibrosis noted along the right uterosacral ligament and right ovarian fossa. Total IV fluids/Blood products: 1000 ml crystalloid Urine Output: 500 ml Estimated blood loss: 10 ml Drains: Frost catheter removed at the end of the procedure Specimens: Peritoneal biopsies (left and right uterosacral peritoneum), urine culture collected by Dr. Erickson Instrument and Sponge Count: Correct x 2 Complications: None Condition: Stable, transferred to post anesthesia recovery Procedure: The patient was brought to the operating room with running IV fluids. General anesthesia was administered without difficulty. The patient was placed in a dorsal lithotomy position with Yellofin stirrups. She was then prepped and draped in the usual sterile fashion. A surgical timeout was performed. A weighted speculum was inserted into the vagina, and the anterior lip of the cervix was grasped with a single-tooth tenaculum. The cervix was dilated to allow placement of a Hulka uterine manipulator. A frost catheter was then placed, and clear urine was noted. The surgeon's gloves were changed, and attention was directed to the laparoscopic portion of the procedure. A 5mm incision was made at [place]. An Optical trocar was inserted at this location. CO2 gas was connected and pneumoperitoneum was created to a pressure of 15 mmHg. Accessory ports were placed under direct visualization in the left and right lower quadrants. The above findings were noted. The powder burn lesion along the left uterosacral ligament was elevated and laparoscopic scissors were used to excise the peritoneum which was sent to pathology for evaluation. There was fibrosis noted along the right uterosacral ligament so a peritoneal biopsy was taken in a similar manner. The Daphney was used to dessicate the area for hemostasis. It was then irrigated and watched under low insufflation. Hemostasis was still noted to be excellent. The procedure was deemed complete at that point. Pneumoperitoneum was allowed to release. All trocars were removed. The incisions were closed with 4-0 Monocryl suture. All instruments were removed from the vagina. The patient tolerated the procedure well. All counts were correct x2. Patient was awakened from general anesthesia and taken to the PACU in stable condition. Jenn Moe MD 12/08/2023, 2:26 PM Associated attestation - Sharonda Molina DO - 12/08/2023 5:56 PM EST Procedures or Surgery: I was present for all alvarez elements of the procedure or surgery as described in the resident note. documented in this encounter [facility] 12-08-2023 Note Airway Date/Time: 12/08/2023 1:13 PM Urgency: scheduled Airway not difficult General Information and Staff Patient location during procedure: Procedural Resident/CREDIT UNION MANAGER: Nikko Kaufman CRNA Performed: CREDIT UNION MANAGER Performed by: Nikko Kaufman CRNA Authorized by: Nikko Kaufman CRNA Indications and Patient Condition Indications for airway management: anesthesia and airway protection Sedation level: Asleep Preoxygenated: yes Patient position: sniffing MILS maintained throughout Mask difficulty assessment: 1 - vent by mask Final Airway Details Final airway type: endotracheal airway Successful airway: ETT Cuffed: yes Successful intubation technique: direct laryngoscopy Facilitating devices/methods: intubating stylet Endotracheal tube insertion site: oral Blade: Dimitris Blade size: #3 ETT size (mm): 7.0 Cormack-Lehane Classification: grade I - full view of glottis Placement verified by: chest auscultation, capnometry and palpation of cuff Measured from: lips ETT to lips (cm): 21 Number of attempts at approach: 1 [facility] 12-08-2023 Note Peripheral Block Time Out: 12/08/2023 1:12 PM Patient location during procedure: Procedural Start time: 12/08/2023 1:13 PM End time: 12/08/2023 1:16 PM Reason for block: at surgeon's request and post-op pain management Staffing Performed: CREDIT UNION MANAGER Resident/CREDIT UNION MANAGER: Benjamin Miguel APRN - JULIÁN Preanesthetic Checklist Completed: patient identified, IV checked, site marked, risks and benefits discussed, surgical consent, monitors and equipment checked, pre-op evaluation and timeout performed Region: [place] Primary: TAP (Bupivacaine 0.375%/ Epi 1:200,000/ Dex 0.1mg/mL 40ml divided evenly bilateral) Secondary: Upper rectus (Bupivacaine 0.375%/ Epi 1:200,000/ Dex 0.1mg/mL 20ml divided evenly bilateral) Peripheral Block Patient position: supine Prep: ChloraPrep Patient monitoring: heart rate, playground monitor, continuous pulse ox and continuous capnometry O2: ETT/LMA Laterality: bilateral Injection technique: single-shot Guidance: ultrasound guided -image retained in chart, tip of the needle identified by ultraound during injection. Needle Needle: 21G X 110 mm Additional Notes 12/08/2023 1:13 PM Assessment Injection assessment: negative aspiration for heme, no paresthesia on injection and incremental injection Heart rate change: no Slow fractionated injection: yes Required Documentation: Relevant anatomy identified (Nerves, Vessels, Muscles), Negative for blood on aspiration, Local anesthetic injected incrementally with intermittent aspiration every 5 mL, Normal resistance with injection, No EKG changes noted, No symptoms of toxicity, Local anesthetic spread visualized around nerves or plane. and Local anesthetic injected without difficultyMedications aonKATHEczoxi-zxycyzrkjnp-qiwlrui rine (TAP) syringe - Injection 60 mL - 12/08/2023 1:13:00 PM [facility] 12-08-2023 Note Formatting of this n ote might be different from the original. Discharge instructions reviewed with patient and her visitor, no further questions at this time. [employer] 12-08-2023 Note Formatting of this n ote might be different from the original. Discharge instructions reviewed with patient and her visitor, no further questions at this time. [facility] [employer] 12-08-2023 Note [employer]AUR[facility] [employer] Pre-Op Note Patient Name: Poncho Case Patient : 2000 Room/Bed: OR/NONE Admission Date/Time: 12/08/2023 11:16 AM Primary Care Physician: GARY SALVADOR Date: 12/08/2023 Time: 12:59 PM The patient was seen in pre-op holding. She is here for Pelvic exam under anesthesia, cystoscopy with hydrodistention, trigger point injections, pudendal nerve block . The procedure risks and complications were reviewed. The labs, consent, and H&P were reviewed and updated as appropriate. The patient had all of her questions answered. OBSTETRICAL HISTORY: OB History Para Term AB Living 1 1 1 0 0 1 SAB IAB Ectopic Multiple Live Births 0 0 0 0 1 # Outcome Date GA Lbr Pilo/2nd Weight Sex Delivery Anes PTL Lv 1 Term PAST MEDICAL HISTORY: Past Medical History: Diagnosis Date Endometriosis Interstitial cystitis Pernicious anemia PONV (postoperative nausea and vomiting) PAST SURGICAL HISTORY: Past Surgical History: Procedure Laterality Date APPENDECTOMY 2015 PELVIC LAPAROSCOPY 2019 TONSILLECTOMY AND ADENOIDECTOMY (HISTORICAL) 2018 ALLERGIES: Allergies Allergen Reactions Hydrocodone Hives, Itching and Rash MEDICATIONS: Current Facility-Administered Medications: lactated Ringer's (LR) infusion, 50 mL/hr, IntraVENous, Continuous, Uriel Travis MD, Last Rate: 50 mL/hr at 12/08/23 1148, 50 mL/hr at 12/08/23 1148 sodium chloride 0.9 % infusion, 5-250 mL/hr, IntraVENous, PRN, Uriel Travis MD sodium chloride 0.9% (NS) flush 5-40 mL, 5-40 mL, IntraVENous, q12h, Uriel Travis MD sodium chloride 0.9% (NS) flush 5-40 mL, 5-40 mL, IntraVENous, PRN, Ureil Travis MD FAMILY HISTORY: family history includes Heart attack in her father; Hypertension in her mother. SOCIAL HISTORY: Social History Socioeconomic History Marital status: Single Spouse name: Not on file Number of children: Not on file Years of education: Not on file Highest education level: Not on file Occupational History Not on file Tobacco Use Smoking status: Never Passive exposure: Never Smokeless tobacco: Never Vaping Use Vaping Use: Never used Substance and Sexual Activity Alcohol use: Yes Comment: once a month Drug use: Never Sexual activity: Yes control/protection: Injection Other Topics Concern Not on file Social History Narrative Not on file Social Determinants of Health Financial Resource Strain: Not on file Food Insecurity: Not on file Transportation Needs: Not on file Physical Activity: Not on file Stress: Not on file Social Connections: Not on file Intimate Partner Violence: Not on file Housing Stability: Not on file VITALS: Vitals: 12/08/23 1126 BP: 131/83 Pulse: 87 Resp: 15 Temp: 36.6 ?C (97.8 ?F) TempSrc: Temporal SpO2: 99% Weight: 98 kg (216 lb) Height: 1.626 m (5' 4 ) PHYSICAL EXAM and ROS: Unchanged from Prior H&P LAB RESULTS: Admission on 12/08/2023 Component Date Value Ref Range Status Preg Test, Ur 12/08/2023 Negative Negative Final POSITIVE QC 12/08/2023 Pass Final NEGATIVE QC 12/08/2023 Pass Final HCG LOT NUMBER 12/08/2023 [id number] Final Pre-Admission Testing on 12/02/2023 Component Date Value Ref Range Status Hemoglobin 12/02/2023 14.7 11.7 - 16.0 g/dL Final Hematocrit 12/02/2023 43.9 35.0 - 47.0 % Final DIAGNOSIS & PLAN: - Proceed with planned procedure: Pelvic exam under anesthesia, cystoscopy with hydrodistention, trigger point injections, pudendal nerve block - The attending physician reviewed the procedure and associated complications. The labs, consent, and H&P were reviewed and updated as appropriate by the attending physician. The patient had all of her questions answered. - Consent was signed by the attending physician - The patient is ready for transport to the operative suite. Jenn Moe MD 12/08/2023, 12:59 PM Hospital Care (Present): I was present with the resident during the history and exam. I discussed the case with the resident and agree with the findings and plan as documented in the resident's note. [facility] 12-08-2023 Note Formatting of this n ote might be different from the original. Patient family/visitor updated by RN at this time. Call to [place] patients fiance [facility] 12-08-2023 Note Formatting of this n ote might be different from the original. Patient family/visitor updated by RN at this time. Call to [place] patients fiance [facility] 12-08-2023 Note [employer] [employer] Pre-Op Note Patient Name: Poncho Case Patient : 2000 Room/Bed: OR/NONE Admission Date/Time: 12/08/2023 11:16 AM Primary Care Physician: GARY SALVADOR Date: 12/08/2023 Time: 12:45 PM The patient was seen in pre-op holding. She is here for Diagnostic Laparoscopy, Excision of endometriosis. The procedure risks and complications were reviewed. The labs, consent, and H&P were reviewed and updated as appropriate. The patient had all of her questions answered. OBSTETRICAL HISTORY: OB History Para Term AB Living 1 1 1 0 0 1 SAB IAB Ectopic Multiple Live Births 0 0 0 0 1 # Outcome Date GA Lbr Pilo/2nd Weight Sex Delivery Anes PTL Lv 1 Term PAST MEDICAL HISTORY: Past Medical History: Diagnosis Date Endometriosis Interstitial cystitis Pernicious anemia PONV (postoperative nausea and vomiting) PAST SURGICAL HISTORY: Past Surgical History: Procedure Laterality Date APPENDECTOMY 2015 PELVIC LAPAROSCOPY 2019 TONSILLECTOMY AND ADENOIDECTOMY (HISTORICAL) 2018 ALLERGIES: Allergies Allergen Reactions Hydrocodone Hives, Itching and Rash MEDICATIONS: Current Facility-Administered Medications: lactated Ringer's (LR) infusion, 50 mL/hr, IntraVENous, Continuous, Uriel Travis MD, Last Rate: 50 mL/hr at 12/08/23 1148, 50 mL/hr at 12/08/23 1148 sodium chloride 0.9 % infusion, 5-250 mL/hr, IntraVENous, PRN, Uriel Travis MD sodium chloride 0.9% (NS) flush 5-40 mL, 5-40 mL, IntraVENous, q12h, Uriel Travis MD sodium chloride 0.9% (NS) flush 5-40 mL, 5-40 mL, IntraVENous, PRN, Uriel Travis MD FAMILY HISTORY: family history includes Heart attack in her father; Hypertension in her mother. SOCIAL HISTORY: Social History Socioeconomic History Marital status: Single Spouse name: Not on file Number of children: Not on file Years of education: Not on file Highest education level: Not on file Occupational History Not on file Tobacco Use Smoking status: Never Passive exposure: Never Smokeless tobacco: Never Vaping Use Vaping Use: Never used Substance and Sexual Activity Alcohol use: Yes Comment: once a month Drug use: Never Sexual activity: Yes control/protection: Injection Other Topics Concern Not on file Social History Narrative Not on file Social Determinants of Health Financial Resource Strain: Not on file Food Insecurity: Not on file Transportation Needs: Not on file Physical Activity: Not on file Stress: Not on file Social Connections: Not on file Intimate Partner Violence: Not on file Housing Stability: Not on file VITALS: Vitals: 12/08/23 1126 BP: 131/83 Pulse: 87 Resp: 15 Temp: 36.6 ?C (97.8 ?F) TempSrc: Temporal SpO2: 99% Weight: 98 kg (216 lb) Height: 1.626 m (5' 4 ) PHYSICAL EXAM and ROS: Unchanged from Prior H&P LAB RESULTS: Admission on 12/08/2023 Component Date Value Ref Range Status Preg Test, Ur 12/08/2023 Negative Negative Final POSITIVE QC 12/08/2023 Pass Final NEGATIVE QC 12/08/2023 Pass Final HCG LOT NUMBER 12/08/2023 [id number] Final Pre-Admission Testing on 12/02/2023 Component Date Value Ref Range Status Hemoglobin 12/02/2023 14.7 11.7 - 16.0 g/dL Final Hematocrit 12/02/2023 43.9 35.0 - 47.0 % Final DIAGNOSTICS: No results found. DIAGNOSIS & PLAN: - Proceed with planned procedure: Diagnostic Laparoscopy, Excision of Endometriosis. - The attending physician reviewed the procedure and associated complications. The labs, consent, and H&P were reviewed and updated as appropriate by the attending physician. The patient had all of her questions answered. - Consent was signed by the attending physician - The patient is ready for transport to the operative suite. Sharonda Molina, 12/08/2023, 12:45 PM [facility] 12-08-2023 Attending History and physical note Images from the original note were not included. 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 She is here for Pelvic exam under anesthesia, cystoscopy with hydrodistention, trigger point injections, pudendal nerve block . The procedure risks and complications were reviewed. The labs, consent, and H&P were reviewed and updated as appropriate. The patient had all of her questions answered. OBSTETRICAL HISTORY: OB History Para Term AB Living 1 1 1 0 0 1 SAB IAB Ectopic Multiple Live Births 0 0 0 0 1 # Outcome Date GA Lbr Pilo/2nd Weight Sex Delivery Anes PTL Lv 1 Term PAST MEDICAL HISTORY: Past Medical History: Diagnosis Date Endometriosis Interstitial cystitis Pernicious anemia PONV (postoperative nausea and vomiting) PAST SURGICAL HISTORY: Past Surgical History: Procedure Laterality Date APPENDECTOMY 2015 PELVIC LAPAROSCOPY 2019 TONSILLECTOMY AND ADENOIDECTOMY (HISTORICAL) 2018 ALLERGIES: Allergies Allergen Reactions Hydrocodone Hives, Itching and Rash MEDICATIONS: Current Facility-Administered Medications: lactated Ringer's (LR) infusion, 50 mL/hr, IntraVENous, Continuous, Uriel Travis MD, Last Rate: 50 mL/hr at 12/08/23 1148, 50 mL/hr at 12/08/23 1148 sodium chloride 0.9 % infusion, 5-250 mL/hr, IntraVENous, PRN, Uriel Travis MD sodium chloride 0.9% (NS) flush 5-40 mL, 5-40 mL, IntraVENous, q12h, Uriel Travis MD sodium chloride 0.9% (NS) flush 5-40 mL, 5-40 mL, IntraVENous, PRN, Uriel Travis MD FAMILY HISTORY: family history includes Heart attack in her father; Hypertension in her mother. SOCIAL HISTORY: Social History Socioeconomic History Marital status: Single Spouse name: Not on file Number of children: Not on file Years of education: Not on file Highest education level: Not on file Occupational History Not on file Tobacco Use Smoking status: Never Passive exposure: Never Smokeless tobacco: Never Vaping Use Vaping Use: Never used Substance and Sexual Activity Alcohol use: Yes Comment: once a month Drug use: Never Sexual activity: Yes control/protection: Injection Other Topics Concern Not on file Social History Narrative Not on file Social Determinants of Health Financial Resource Strain: Not on file Food Insecurity: Not on file Transportation Needs: Not on file Physical Activity: Not on file Stress: Not on file Social Connections: Not on file Intimate Partner Violence: Not on file Housing Stability: Not on file VITALS: Vitals: 12/08/23 1126 BP: 131/83 Pulse: 87 Resp: 15 Temp: 36.6 C (97.8 F) TempSrc: Temporal SpO2: 99% Weight: 98 kg (216 lb) Height: 1.626 m (5' 4 ) PHYSICAL EXAM and ROS: Unchanged from Prior H&P LAB RESULTS: Admission on 12/08/2023 Component Date Value Ref Range Status Preg Test, Ur 12/08/2023 Negative Negative Final POSITIVE QC 12/08/2023 Pass Final NEGATIVE QC 12/08/2023 Pass Final HCG LOT NUMBER 12/08/2023 [id number] Final Pre-Admission Testing on 12/02/2023 Component Date Value Ref Range Status Hemoglobin 12/02/2023 14.7 11.7 - 16.0 g/dL Final Hematocrit 12/02/2023 43.9 35.0 - 47.0 % Final DIAGNOSIS & PLAN: - Proceed with planned procedure: Pelvic exam under anesthesia, cystoscopy with hydrodistention, trigger point injections, pudendal nerve block - The attending physician reviewed the procedure and associated complications. The labs, consent, and H&P were reviewed and updated as appropriate by the attending physician. The patient had all of her questions answered. - Consent was signed by the attending physician - The patient is ready for transport to the operative suite. Jenn Moe MD 12/08/2023, 12:59 PM Hospital Care (Present): I was present with the resident during the history and exam. I discussed the case with the resident and agree with the findings and plan as documented in the resident's note. Source Note - Jesica Degroot APRN - CREW DIRECTOR - 12/02/2023 1:30 PM EST Comprehensive Pre Surgical History and Physical ? Name: Poncho Case : 2000 (Age-23 y.o.) Date of Service: Pt seen/examined on 12/02/2023 Procedure Information Date/Time: 12/08/23 1300 Procedures: PELVIC EXAMINATION UNDER ANESTHESIA, CYSTOSCOPY WITH HYDRODISTENTION, TRIGGER POINT INJECTIONS, PUDENDAL NERVE BLOCK, DIAGNOSTIC LAPAROSCOPY, LAPAROSCOPIC EXCISION OF ENDOMETRIOSIS - TOTAL TIME REQUESTED 150 MINS WITH CHANGE-OVER CYSTOSCOPY DILATION OF BLADDER (GENERAL OR SPINAL ANESTHESIA) (Urethra) INJECTION(S) SINGLE OR MULTIPLE TRIGGER POINTS 1 0R 2 MUSCLES INJECTION ANESTHETIC AGENT PUDENDAL NERVE LAPAROSCOPY FULGURATION/EXCISION OF LESIONS (Abdomen) DIAGNOSTIC LAPAROSCOPY (Abdomen) LAPAROSCOPY FULGURATION/EXCISION OF LESIONS (Abdomen) Location: [address] Operating Room Surgeons: Lorenza Erickson DO; Sharonda Molina DO Chief Complaint: Interstitial cystitis (chronic) without hematuria [N30.10] Pelvic and perineal pain [R10.2] Other chronic pain [G89.29] ASSESSMENT/PLAN: Patient is considered low risk for this intermediate level 1 risk procedure/surgery (PELVIC EXAMINATION UNDER ANESTHESIA, CYSTOSCOPY WITH HYDRODISTENTION, TRIGGER POINT INJECTIONS, PUDENDAL NERVE BLOCK, DIAGNOSTIC LAPAROSCOPY, LAPAROSCOPIC EXCISION OF ENDOMETRIOSIS - TOTAL TIME REQUESTED 150 MINS WITH CHANGE-OVER CYSTOSCOPY DILATION OF BLADDER (GENERAL OR SPINAL ANESTHESIA) (Urethra) INJECTION(S) SINGLE OR MULTIPLE TRIGGER POINTS 1 0R 2 MUSCLES INJECTION ANESTHETIC AGENT PUDENDAL NERVE LAPAROSCOPY FULGURATION/EXCISION OF LESIONS (Abdomen) DIAGNOSTIC LAPAROSCOPY (Abdomen) LAPAROSCOPY FULGURATION/EXCISION OF LESIONS (Abdomen)) with no reducible risk factors. Based on the above evaluation, the benefits of the planned procedure likely exceed the risks. 1) Interstitial cystitis (chronic) without hematuria [N30.10] Pelvic and perineal pain [R10.2] Other chronic pain [G89.29] - Managed per surgery - Anesthesia Lab Protocol Orders 2) Anemia - source - pernicious -Resume b12 supplementation - has required a blood transfusion - No - H&H pending Yes Lab Results Component Value Date WBC 10.5 08/09/2022 HGB 11.6 (L) 08/09/2022 MCV 96.8 08/09/2022 3) Difficult IV access/stick -Per pt. H&H drawn today in PAT. Visit Type: Pre-Admission Testing Visit Labs Ordered: YES - PER PAT PROTOCOL Sleep Referral Ordered: NO - NEGATIVE SCREEN PER SLEEP REFERRAL PROTOCOL Total time spent (which include face to face and non face to face encounters) : 30 minutes Toxic drug monitoring/narrow therapeutic index drug monitoring :no # Drug name : NA # Route administered : NA # Method of monitoring : NA PAT Protocol referenced includes: 1. Anesthesia Lab Protocol Orders 2. Perioperative Cardiovascular Risk Assessment 3. Anesthesia Assessment 4. Pain Assessment and Acute Pain Service Consult (if appropriate) 5. Medical Clearance/Consult from Internal Medicine ([facility]) 6. Shower/Wash Order (for designated surgeries) 7. [facility] Screen and Sleep Clinic Referral (if appropriate) History Of Present Illness: Case: [id number] Date/Time: 12/08/23 1300 Procedures: PELVIC EXAMINATION UNDER ANESTHESIA, CYSTOSCOPY WITH HYDRODISTENTION, TRIGGER POINT INJECTIONS, PUDENDAL NERVE BLOCK, DIAGNOSTIC LAPAROSCOPY, LAPAROSCOPIC EXCISION OF ENDOMETRIOSIS [85313 CPT(R)] - TOTAL TIME REQUESTED 150 MINS WITH CHANGE-OVER CYSTOSCOPY DILATION OF BLADDER (GENERAL OR SPINAL ANESTHESIA) (Urethra) [19648 CPT(R)] INJECTION(S) SINGLE OR MULTIPLE TRIGGER POINTS 1 0R 2 MUSCLES [82321 CPT(R)] INJECTION ANESTHETIC AGENT PUDENDAL NERVE [94235 CPT(R)] LAPAROSCOPY FULGURATION/EXCISION OF LESIONS (Abdomen) [39224 CPT(R)] DIAGNOSTIC LAPAROSCOPY (Abdomen) [04731 CPT(R)] LAPAROSCOPY FULGURATION/EXCISION OF LESIONS (Abdomen) [98040 CPT(R)] Anesthesia type: General Diagnosis: Interstitial cystitis (chronic) without hematuria [N30.10] Pelvic and perineal pain [R10.2] Other chronic pain [G89.29] Patient follows with Dr. Erickson for management of IC and endometriosis with plans for a combination case with urogynecology for cystoscopy hydrodistention, pudendal nerve block and possible trigger point injections. On assessment today, patient is in NAD with no acute complaints. IC/BPS Treatment history from last OV on 09/18/23: Current treatment Previous treatment First Line [x] General Relaxation/Stress Management [x] Pain Management (Tylenol, NSAIDs) [x] Self-care/Behavioral Modification [x] General Relaxation/Stress Management [x] Pain Management (Tylenol, NSAIDs) [x] Self-care/Behavioral Modification Second Line [] Pelvic Physical Therapy [] Oral Medications [] Amitriptyline [] Cimetidine [] Hydroxyzine [] PPS ([place]) [] Bladder Instillations [] Frequency: aida [x] Pelvic Physical Therapy [] Oral Medications [] Amitriptyline [] Cimetidine [] Hydroxyzine [] PPS ([place]) [] Bladder Instillations [] Frequency: NA Third Line [] Cystoscopy with Hydrodistention Dates: NA [] Treatment of Hunner's Lesions Type: NA [] Cystoscopy with Hydrodistention Dates: NA [] Treatment of Hunner's Lesions Type: NA Fourth Line [] Intradetrusor Botox Dates: NA [] Neuromodulation Dates: NA [] Intradetrusor Botox Dates: NA [] Neuromodulation Dates: NA Fifth Line [] Cyclosporine A [] Cyclosporine A Sixth Line [] Diversion with or without cystectomy [] Substitution cystoplasty [] Diversion with or without cystectomy [] Substitution cystoplasty ? Denies history of OR, CAD, CHF, TIA, CVA, Seizures or Blood clots Past Medical History: Past Medical History: No date: Endometriosis No date: Interstitial cystitis No date: Pernicious anemia No date: PONV (postoperative nausea and vomiting) Past Surgical History: Past Surgical History: 2015: APPENDECTOMY 2019: PELVIC LAPAROSCOPY 2018: TONSILLECTOMY AND ADENOIDECTOMY (HISTORICAL) Medications Prior to Admission: Prior to Admission medications Medication Sig Start Date End Date Taking? Authorizing Provider amoxicillin-clavulanate (Augmentin) 875-125 MG tablet 09/11/23 Historical Provider, cyanocobalamin (Vitamin B-12) 1000 MCG tablet Take 1,000 mcg by mouth daily. Historical Provider, medroxyPROGESTERone (Depo-Provera) 150 MG/ML suspension prefilled syringe injection syringe 09/08/23 Historical Provider, prazosin (Minipress) 1 MG capsule TAKE 1 TO 2 CAPSULES BY MOUTH AT BEDTIME NEEDED TO PREVENT MIGRAINE 08/22/23 Historical Provider, CHRONIC NARCOTIC USE: No Allergies: Hydrocodone If patient has opioid allergy, is it okay to take Acetaminophen: okay to take tylenol Social History: TOBACCO: reports that she has never smoked. She has never been exposed to tobacco smoke. She has never used smokeless tobacco. ETOH: reports current alcohol use. Social History Substance and Sexual Activity Drug Use Never Family History: Family History Problem Relation Name Age of Onset Heart attack Father Hypertension Mother REVIEW OF SYSTEMS: Review of Systems Constitutional: Negative for chills and fever. Respiratory: Negative for cough and shortness of breath. Cardiovascular: Negative for chest pain and palpitations. Gastrointestinal: Negative for abdominal pain, diarrhea and vomiting. Genitourinary: Positive for pelvic pain. Negative for dysuria and hematuria. Skin: Negative for rash and wound. Neurological: Negative for dizziness and syncope. Physical Exam: Physical Exam Vitals reviewed. Constitutional: Appearance: Normal appearance. HENT: Head: Normocephalic and atraumatic. Right Ear: External ear normal. Left Ear: External ear normal. Nose: Nose normal. Mouth/Throat: Lips: [place]. Mouth: Mucous membranes are moist. Pharynx: Oropharynx is clear. Cardiovascular: Rate and Rhythm: Normal rate and regular rhythm. Heart sounds: Normal heart sounds. Pulmonary: Effort: No respiratory distress. Breath sounds: No stridor. Abdominal: General: Bowel sounds are normal. Palpations: Abdomen is soft. Tenderness: There is no abdominal tenderness. Musculoskeletal: Cervical back: Normal range of motion and neck supple. Comments: Moves all extremities. Skin: General: Skin is warm. Capillary Refill: Capillary refill takes less than 2 seconds. Findings: No rash. Neurological: Mental Status: She is alert and oriented to person, place, and time. Sensory: Sensation is intact. Motor: Motor function is intact. Coordination: Coordination is intact. Psychiatric: Mood and Affect: Mood and affect normal. Vitals: Vitals Value Taken Time BP 130/86 12/02/23 1334 Temp 36.7 C (98 F) 12/02/23 1334 Pulse 100 12/02/23 1334 Resp 16 12/02/23 1334 SpO2 96 % 12/02/23 1334 Labs: Lab Results Component Value Date WBC 10.5 08/09/2022 HGB 11.6 (L) 08/09/2022 MCV 96.8 08/09/2022 Lab Results Component Value Date NA 136 08/09/2022 K 3.8 08/09/2022 CL 108 (H) 08/09/2022 CO2 22 08/09/2022 BUN 5 (L) 08/09/2022 CREATININE 0.51 (L) 08/09/2022 GLUCOSE 109 (H) 08/09/2022 CALCIUM 9.0 08/09/2022 PROT 6.6 08/09/2022 ALKPHOS 48 08/09/2022 AST 20 08/09/2022 Colette's Simple Cardiac Risk Index: COLETTE'S SIMPLE CARDIAC RISK SCORE: 0 Interpretation: 0 Points Class I 0.5% 1 Point Class II 1.3% 2 Points Class III 3.6% 3+ Points Class IV 9.1% Postop Pain Management Plan (Pain consult ordered?): Pain consult not indicated at this time ? EKG: n/a ECHO and EF:None on file METS: >4 - Yes Electronically signed by: Jesica Degroot APRN - [place] Date: 12/02/2023 at 2:28 PM [facility] Work Phone: 12-08-2023 Note Formatting of this n ote might be different from the original. Images from the original note were not included. Operative Note Department of Urogynecology Patient: Poncho Case : 2000 Date of Procedure: 12/08/2023 Pre-operative Diagnosis: 23 yo female with chronic pelvic pain, urinary urgency and frequency refractory to medical intervention presents for surgery at the time of her diagnostic laparoscopy with Dr. Molina. Risks, benefits and alternatives were again reviewed and she elected to proceed. Post-operative Diagnosis: Same+ Interstitial Cystitis Procedure: pelvic exam under anesthesia, Cystoscopy with hydrodistention, trigger point injections, pudendal nerve block Surgeon: Lorenza Erickson DO Pot Filler(s): Dr. Moe Anesthesia: general Findings: EUA notable for bilateral spasm of Obturator internus muscles bilaterally with minimal spasm of bilateral pubococcygeus. Cystoscopy: grossly normal urothelium without lesions or masses, mild trabeculations; petechial hemorrhages in 4/4 quadrants; no Hunners ulcers; during evaluation of bilateral ureteral efflux mucous like sediment was noted so the specimen was sent for culture. Bladder capacity 600mL Total IV fluids/Blood products: 1000 ml crystalloid Urine Output: 500 ml Estimated blood loss: Minimal Specimens: urine culture by ; peritoneal biopsies by Dr. Molina Instrument and Sponge Count: Correct x 2 per nursing Complications: None Operative note: After verifying written consent, the patient was taken to the operating room where she correctly identified herself. She was placed in supine position on the operating room table. She was placed under general anesthesia. Once anesthesia was noted to be achieved, she was placed in a dorsal lithotomy position with Young Yellofin stirrups. She was prepped and draped in normal sterile fashion. A proper time-out was performed. A 70 degree cystoscope was inserted into the bladder, which was noted to be free of any tumors, lesions, stones and with trabeculations. The entirety of bladder was visualized. The patient's bladder was filled to capacity, which was noted to be 600mL. On slow decompression, there was noted to be petechial hemorrhages in 4/4 quadrants of the bladder. The bladder was again filled to capacity and drained once again with similar findings. During evaluation of ureteral efflux, there was mucous like sediment seen effluxing from both ureteral orifices, so a culture was obtained and she will be started on empiric outpatient antibiotics. Trigger Point Injections Examination was performed to identify trigger points for peripheral nerve block. The area over the identified myofascial spasm(s) was previously prepped in sterile fashion. The needle was placed in the center of the identified area and aspiration was performed to ensure the needle tip was not intravascular. Injection of local anesthetic was performed. Anesthetic Agent: Bupivacaine 0.25% + epinephrine Site 1: Location: right levator ani muscle Injection Volume: 2.5mL Site 2: Location: right obturator internus muscle Injection Volume: 2.5mL Site 3: Location: left levator ani muscle Injection Volume: 2.5mL Site 4: Location: left obturator internus muscle Injection Volume: 2.5mL Pudendal Nerve Block The right ischial spine and sacrospinous ligament were identified. The trumpet needle guide was introduced into the vaginal canal and placed against the vaginal epithelium on the sacrospinous ligament approximately 1 cm medial and inferior to the ischial spine. The needle was placed through the trumpet guide and advanced through the vaginal epithelium and sacrospinous ligament into the space behind the ligament. Aspiration was performed to ensure the needle tip was not intravascular. 10 cc of a solution of 0.25% bupivicaine with epinephrine mixed was injected. The same procedure was performed on the patient's left. The procedure was noted to be complete. The patient was placed back in supine position and awoken from general anesthesia. All counts were correct x2 per nursing. The patient was transported to recovery in stable condition. Lorenza Erickson DO 12/08/2023, 2:14 PM [facility] 12-08-2023 Note Formatting of this n ote might be different from the original. Images from the original note were not included. Operative Note Department of Obstetrics and Gynecology Patient: Poncho Case : 2000 Date of Procedure: 12/08/23 Pre-operative Diagnosis: 23 y.o. female 1. Chronic pelvic pain 2. Interstitial cystitis/Bladder pain syndrome Post-operative Diagnosis: Same Procedure: Diagnostic laparoscopy, Excision of Endometriosis Surgeon: Dr. Sharonda Molina Pot Filler(s): Dr. Jenn Moe Anesthesia: General ET, TAP block Antibiotics: Not indicated but discharged home with Keflex x7 days (see Dr. Erickson operative note for further details) Findings: Normal external genitalia with full exam noted in Dr. Erickson op note. Abdominal survey normal with no intraabdominal adhesions. Normal appearing stomach, liver, and gallbladder. Normal appearing uterus, fallopian tubes, and ovaries bilaterally. Small 1-2mm powder burn lesion noted just lateral to the left uterosacral ligament. No other powder burn lesions or evidence of endometriosis noted in the abdomen including along the side canela, diaphragm, and ovarian fossas. Fibrosis noted along the right uterosacral ligament and right ovarian fossa. Total IV fluids/Blood products: 1000 ml crystalloid Urine Output: 500 ml Estimated blood loss: 10 ml Drains: Frost catheter removed at the end of the procedure Specimens: Peritoneal biopsies (left and right uterosacral peritoneum), urine culture collected by Dr. Erickson Instrument and Sponge Count: Correct x 2 Complications: None Condition: Stable, transferred to post anesthesia recovery Procedure: The patient was brought to the operating room with running IV fluids. General anesthesia was administered without difficulty. The patient was placed in a dorsal lithotomy position with Yellofin stirrups. She was then prepped and draped in the usual sterile fashion. A surgical timeout was performed. A weighted speculum was inserted into the vagina, and the anterior lip of the cervix was grasped with a single-tooth tenaculum. The cervix was dilated to allow placement of a [place] uterine manipulator. A frost catheter was then placed, and clear urine was noted. The surgeon's gloves were changed, and attention was directed to the laparoscopic portion of the procedure. A 5mm incision was made at [place]. An Optical trocar was inserted at this location. CO2 gas was connected and pneumoperitoneum was created to a pressure of 15 mmHg. Accessory ports were placed under direct visualization in the left and right lower quadrants. The above findings were noted. The powder burn lesion along the left uterosacral ligament was elevated and laparoscopic scissors were used to excise the peritoneum which was sent to pathology for evaluation. There was fibrosis noted along the right uterosacral ligament so a peritoneal biopsy was taken in a similar manner. The Daphney was used to dessicate the area for hemostasis. It was then irrigated and watched under low insufflation. Hemostasis was still noted to be excellent. The procedure was deemed complete at that point. Pneumoperitoneum was allowed to release. All trocars were removed. The incisions were closed with 4-0 Monocryl suture. All instruments were removed from the vagina. The patient tolerated the procedure well. All counts were correct x2. Patient was awakened from general anesthesia and taken to the PACU in stable condition. Jenn Moe MD 12/08/2023, 2:26 PM Associated attestation - Sharonda Molina DO - 12/08/2023 5:56 PM EST Procedures or Surgery: I was present for all alvarez elements of the procedure or surgery as described in the resident note. [facility] 12-08-2023 Note Formatting of this n ote might be different from the original. Images from the original note were not included. Operative Note Department of Urogynecology Patient: Poncho Case : 2000 Date of Procedure: 12/08/2023 Pre-operative Diagnosis: 23 yo female with chronic pelvic pain, urinary urgency and frequency refractory to medical intervention presents for surgery at the time of her diagnostic laparoscopy with Dr. Molina. Risks, benefits and alternatives were again reviewed and she elected to proceed. Post-operative Diagnosis: Same+ Interstitial Cystitis Procedure: pelvic exam under anesthesia, Cystoscopy with hydrodistention, trigger point injections, pudendal nerve block Surgeon: Lorenza Erickson DO Pot Filler(s): Dr. Moe Anesthesia: general Findings: EUA notable for bilateral spasm of Obturator internus muscles bilaterally with minimal spasm of bilateral pubococcygeus. Cystoscopy: grossly normal urothelium without lesions or masses, mild trabeculations; petechial hemorrhages in 4/4 quadrants; no Hunners ulcers; during evaluation of bilateral ureteral efflux mucous like sediment was noted so the specimen was sent for culture. Bladder capacity 600mL Total IV fluids/Blood products: 1000 ml crystalloid Urine Output: 500 ml Estimated blood loss: Minimal Specimens: urine culture by me; peritoneal biopsies by Dr. Molina Instrument and Sponge Count: Correct x 2 per nursing Complications: None Operative note: After verifying written consent, the patient was taken to the operating room where she correctly identified herself. She was placed in supine position on the operating room table. She was placed under general anesthesia. Once anesthesia was noted to be achieved, she was placed in a dorsal lithotomy position with Young Yellofin stirrups. She was prepped and draped in normal sterile fashion. A proper time-out was performed. A 70 degree cystoscope was inserted into the bladder, which was noted to be free of any tumors, lesions, stones and with trabeculations. The entirety of bladder was visualized. The patient's bladder was filled to capacity, which was noted to be 600mL. On slow decompression, there was noted to be petechial hemorrhages in 4/4 quadrants of the bladder. The bladder was again filled to capacity and drained once again with similar findings. During evaluation of ureteral efflux, there was mucous like sediment seen effluxing from both ureteral orifices, so a culture was obtained and she will be started on empiric outpatient antibiotics. Trigger Point Injections Examination was performed to identify trigger points for peripheral nerve block. The area over the identified myofascial spasm(s) was previously prepped in sterile fashion. The needle was placed in the center of the identified area and aspiration was performed to ensure the needle tip was not intravascular. Injection of local anesthetic was performed. Anesthetic Agent: Bupivacaine 0.25% + epinephrine Site 1: Location: right levator ani muscle Injection Volume: 2.5mL Site 2: Location: right obturator internus muscle Injection Volume: 2.5mL Site 3: Location: left levator ani muscle Injection Volume: 2.5mL Site 4: Location: left obturator internus muscle Injection Volume: 2.5mL Pudendal Nerve Block The right ischial spine and sacrospinous ligament were identified. The trumpet needle guide was introduced into the vaginal canal and placed against the vaginal epithelium on the sacrospinous ligament approximately 1 cm medial and inferior to the ischial spine. The needle was placed through the trumpet guide and advanced through the vaginal epithelium and sacrospinous ligament into the space behind the ligament. Aspiration was performed to ensure the needle tip was not intravascular. 10 cc of a solution of 0.25% bupivicaine with epinephrine mixed was injected. The same procedure was performed on the patient's left. The procedure was noted to be complete. The patient was placed back in supine position and awoken from general anesthesia. All counts were correct x2 per nursing. The patient was transported to recovery in stable condition. Lorenza Erickson DO 12/08/2023, 2:14 PM [facility] 12-08-2023 Note Formatting of this n ote might be different from the original. Images from the original note were not included. Operative Note Department of Obstetrics and Gynecology Patient: Poncho Case : 2000 Date of Procedure: 12/08/23 Pre-operative Diagnosis: 23 y.o. female 1. Chronic pelvic pain 2. Interstitial cystitis/Bladder pain syndrome Post-operative Diagnosis: Same Procedure: Diagnostic laparoscopy, Excision of Endometriosis Surgeon: Dr. Sharonda Molina Pot Filler(s): Dr. Jenn Moe Anesthesia: General ET, TAP block Antibiotics: Not indicated but discharged home with Keflex x7 days (see Dr. Erickson operative note for further details) Findings: Normal external genitalia with full exam noted in Dr. Erickson op note. Abdominal survey normal with no intraabdominal adhesions. Normal appearing stomach, liver, and gallbladder. Normal appearing uterus, fallopian tubes, and ovaries bilaterally. Small 1-2mm powder burn lesion noted just lateral to the left uterosacral ligament. No other powder burn lesions or evidence of endometriosis noted in the abdomen including along the side canela, diaphragm, and ovarian fossas. Fibrosis noted along the right uterosacral ligament and right ovarian fossa. Total IV fluids/Blood products: 1000 ml crystalloid Urine Output: 500 ml Estimated blood loss: 10 ml Drains: Frost catheter removed at the end of the procedure Specimens: Peritoneal biopsies (left and right uterosacral peritoneum), urine culture collected by Dr. Erickson Instrument and Sponge Count: Correct x 2 Complications: None Condition: Stable, transferred to post anesthesia recovery Procedure: The patient was brought to the operating room with running IV fluids. General anesthesia was administered without difficulty. The patient was placed in a dorsal lithotomy position with Yellofin stirrups. She was then prepped and draped in the usual sterile fashion. A surgical timeout was performed. A weighted speculum was inserted into the vagina, and the anterior lip of the cervix was grasped with a single-tooth tenaculum. The cervix was dilated to allow placement of a Hulka uterine manipulator. A frost catheter was then placed, and clear urine was noted. The surgeon's gloves were changed, and attention was directed to the laparoscopic portion of the procedure. A 5mm incision was made at [place]. An Optical trocar was inserted at this location. CO2 gas was connected and pneumoperitoneum was created to a pressure of 15 mmHg. Accessory ports were placed under direct visualization in the left and right lower quadrants. The above findings were noted. The powder burn lesion along the left uterosacral ligament was elevated and laparoscopic scissors were used to excise the peritoneum which was sent to pathology for evaluation. There was fibrosis noted along the right uterosacral ligament so a peritoneal biopsy was taken in a similar manner. The Daphney was used to dessicate the area for hemostasis. It was then irrigated and watched under low insufflation. Hemostasis was still noted to be excellent. The procedure was deemed complete at that point. Pneumoperitoneum was allowed to release. All trocars were removed. The incisions were closed with 4-0 Monocryl suture. All instruments were removed from the vagina. The patient tolerated the procedure well. All counts were correct x2. Patient was awakened from general anesthesia and taken to the PACU in stable condition. Jenn Moe MD 12/08/2023, 2:26 PM Associated attestation - Sharonda Molina DO - 12/08/2023 5:56 PM EST Procedures or Surgery: I was present for all alvarez elements of the procedure or surgery as described in the resident note. [facility] 12-08-2023 History and physical note Images from the original note were not included. 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 She is here for Pelvic exam under anesthesia, cystoscopy with hydrodistention, trigger point injections, pudendal nerve block . The procedure risks and complications were reviewed. The labs, consent, and H&P were reviewed and updated as appropriate. The patient had all of her questions answered. OBSTETRICAL HISTORY: OB History Para Term AB Living 1 1 1 0 0 1 SAB IAB Ectopic Multiple Live Births 0 0 0 0 1 # Outcome Date GA Lbr Pilo/2nd Weight Sex Delivery Anes PTL Lv 1 Term PAST MEDICAL HISTORY: Past Medical History: Diagnosis Date Endometriosis Interstitial cystitis Pernicious anemia PONV (postoperative nausea and vomiting) PAST SURGICAL HISTORY: Past Surgical History: Procedure Laterality Date APPENDECTOMY 2014 PELVIC LAPAROSCOPY 2019 TONSILLECTOMY AND ADENOIDECTOMY (HISTORICAL) 2018 ALLERGIES: Allergies Allergen Reactions Hydrocodone Hives, Itching and Rash MEDICATIONS: Current Facility-Administered Medications: lactated Ringer's (LR) infusion, 50 mL/hr, IntraVENous, Continuous, Uriel Travis MD, Last Rate: 50 mL/hr at 12/08/23 1148, 50 mL/hr at 12/08/23 1148 sodium chloride 0.9 % infusion, 5-250 mL/hr, IntraVENous, PRN, Uriel Travis MD sodium chloride 0.9% (NS) flush 5-40 mL, 5-40 mL, IntraVENous, q12h, Uriel Travis MD sodium chloride 0.9% (NS) flush 5-40 mL, 5-40 mL, IntraVENous, PRN, Uriel Travis MD FAMILY HISTORY: family history includes Heart attack in her father; Hypertension in her mother. SOCIAL HISTORY: Social History Socioeconomic History Marital status: Single Spouse name: Not on file Number of children: Not on file Years of education: Not on file Highest education level: Not on file Occupational History Not on file Tobacco Use Smoking status: Never Passive exposure: Never Smokeless tobacco: Never Vaping Use Vaping Use: Never used Substance and Sexual Activity Alcohol use: Yes Comment: once a month Drug use: Never Sexual activity: Yes control/protection: Injection Other Topics Concern Not on file Social History Narrative Not on file Social Determinants of Health Financial Resource Strain: Not on file Food Insecurity: Not on file Transportation Needs: Not on file Physical Activity: Not on file Stress: Not on file Social Connections: Not on file Intimate Partner Violence: Not on file Housing Stability: Not on file VITALS: Vitals: 12/08/23 1126 BP: 131/83 Pulse: 87 Resp: 15 Temp: 36.6 C (97.8 F) TempSrc: Temporal SpO2: 99% Weight: 98 kg (216 lb) Height: 1.626 m (5' 4 ) PHYSICAL EXAM and ROS: Unchanged from Prior H&P LAB RESULTS: Admission on 12/08/2023 Component Date Value Ref Range Status Preg Test, Ur 12/08/2023 Negative Negative Final POSITIVE QC 12/08/2023 Pass Final NEGATIVE QC 12/08/2023 Pass Final HCG LOT NUMBER 12/08/2023 [id number] Final Pre-Admission Testing on 12/02/2023 Component Date Value Ref Range Status Hemoglobin 12/02/2023 14.7 11.7 - 16.0 g/dL Final Hematocrit 12/02/2023 43.9 35.0 - 47.0 % Final DIAGNOSIS & PLAN: - Proceed with planned procedure: Pelvic exam under anesthesia, cystoscopy with hydrodistention, trigger point injections, pudendal nerve block - The attending physician reviewed the procedure and associated complications. The labs, consent, and H&P were reviewed and updated as appropriate by the attending physician. The patient had all of her questions answered. - Consent was signed by the attending physician - The patient is ready for transport to the operative suite. Jenn Moe MD 12/08/2023, 12:59 PM Hospital Care (Present): I was present with the resident during the history and exam. I discussed the case with the resident and agree with the findings and plan as documented in the resident's note. Source Note - Jesica Degroot APRN - CREW DIRECTOR - 12/02/2023 1:30 PM EST Comprehensive Pre Surgical History and Physical ? Name: Poncho Case : 2000 (Age-23 y.o.) Date of Service: Pt seen/examined on 12/02/2023 Procedure Information Date/Time: 12/08/23 1300 Procedures: PELVIC EXAMINATION UNDER ANESTHESIA, CYSTOSCOPY WITH HYDRODISTENTION, TRIGGER POINT INJECTIONS, PUDENDAL NERVE BLOCK, DIAGNOSTIC LAPAROSCOPY, LAPAROSCOPIC EXCISION OF ENDOMETRIOSIS - TOTAL TIME REQUESTED 150 MINS WITH CHANGE-OVER CYSTOSCOPY DILATION OF BLADDER (GENERAL OR SPINAL ANESTHESIA) (Urethra) INJECTION(S) SINGLE OR MULTIPLE TRIGGER POINTS 1 0R 2 MUSCLES INJECTION ANESTHETIC AGENT PUDENDAL NERVE LAPAROSCOPY FULGURATION/EXCISION OF LESIONS (Abdomen) DIAGNOSTIC LAPAROSCOPY (Abdomen) LAPAROSCOPY FULGURATION/EXCISION OF LESIONS (Abdomen) Location: [address] Operating Room Surgeons: Lorenza Erickson DO; Sharonda Molina DO Chief Complaint: Interstitial cystitis (chronic) without hematuria [N30.10] Pelvic and perineal pain [R10.2] Other chronic pain [G89.29] ASSESSMENT/PLAN: Patient is considered low risk for this intermediate level 1 risk procedure/surgery (PELVIC EXAMINATION UNDER ANESTHESIA, CYSTOSCOPY WITH HYDRODISTENTION, TRIGGER POINT INJECTIONS, PUDENDAL NERVE BLOCK, DIAGNOSTIC LAPAROSCOPY, LAPAROSCOPIC EXCISION OF ENDOMETRIOSIS - TOTAL TIME REQUESTED 150 MINS WITH CHANGE-OVER CYSTOSCOPY DILATION OF BLADDER (GENERAL OR SPINAL ANESTHESIA) (Urethra) INJECTION(S) SINGLE OR MULTIPLE TRIGGER POINTS 1 0R 2 MUSCLES INJECTION ANESTHETIC AGENT PUDENDAL NERVE LAPAROSCOPY FULGURATION/EXCISION OF LESIONS (Abdomen) DIAGNOSTIC LAPAROSCOPY (Abdomen) LAPAROSCOPY FULGURATION/EXCISION OF LESIONS (Abdomen)) with no reducible risk factors. Based on the above evaluation, the benefits of the planned procedure likely exceed the risks. 1) Interstitial cystitis (chronic) without hematuria [N30.10] Pelvic and perineal pain [R10.2] Other chronic pain [G89.29] - Managed per surgery - Anesthesia Lab Protocol Orders 2) Anemia - source - pernicious -Resume b12 supplementation - has required a blood transfusion - No - H&H pending Yes Lab Results Component Value Date WBC 10.5 08/09/2022 HGB 11.6 (L) 08/09/2022 MCV 96.8 08/09/2022 3) Difficult IV access/stick -Per pt. H&H drawn today in PAT. Visit Type: Pre-Admission Testing Visit Labs Ordered: YES - PER PAT PROTOCOL Sleep Referral Ordered: NO - NEGATIVE SCREEN PER SLEEP REFERRAL PROTOCOL Total time spent (which include face to face and non face to face encounters) : 30 minutes Toxic drug monitoring/narrow therapeutic index drug monitoring :no # Drug name : NA # Route administered : NA # Method of monitoring : NA PAT Protocol referenced includes: 1. Anesthesia Lab Protocol Orders 2. Perioperative Cardiovascular Risk Assessment 3. Anesthesia Assessment 4. Pain Assessment and Acute Pain Service Consult (if appropriate) 5. Medical Clearance/Consult from Internal Medicine (IMS) 6. Shower/Wash Order (for designated surgeries) 7. [facility] Screen and Sleep Clinic Referral (if appropriate) History Of Present Illness: Case: [id number] Date/Time: 12/08/23 1300 Procedures: PELVIC EXAMINATION UNDER ANESTHESIA, CYSTOSCOPY WITH HYDRODISTENTION, TRIGGER POINT INJECTIONS, PUDENDAL NERVE BLOCK, DIAGNOSTIC LAPAROSCOPY, LAPAROSCOPIC EXCISION OF ENDOMETRIOSIS [46402 CPT(R)] - TOTAL TIME REQUESTED 150 MINS WITH CHANGE-OVER CYSTOSCOPY DILATION OF BLADDER (GENERAL OR SPINAL ANESTHESIA) (Urethra) [10791 CPT(R)] INJECTION(S) SINGLE OR MULTIPLE TRIGGER POINTS 1 0R 2 MUSCLES [05604 CPT(R)] INJECTION ANESTHETIC AGENT PUDENDAL NERVE [98926 CPT(R)] LAPAROSCOPY FULGURATION/EXCISION OF LESIONS (Abdomen) [55740 CPT(R)] DIAGNOSTIC LAPAROSCOPY (Abdomen) [97541 CPT(R)] LAPAROSCOPY FULGURATION/EXCISION OF LESIONS (Abdomen) [41649 CPT(R)] Anesthesia type: General Diagnosis: Interstitial cystitis (chronic) without hematuria [N30.10] Pelvic and perineal pain [R10.2] Other chronic pain [G89.29] Patient follows with Dr. Erickson for management of IC and endometriosis with plans for a combination case with urogynecology for cystoscopy hydrodistention, pudendal nerve block and possible trigger point injections. On assessment today, patient is in NAD with no acute complaints. IC/BPS Treatment history from last OV on 09/18/23: Current treatment Previous treatment First Line [x] General Relaxation/Stress Management [x] Pain Management (Tylenol, NSAIDs) [x] Self-care/Behavioral Modification [x] General Relaxation/Stress Management [x] Pain Management (Tylenol, NSAIDs) [x] Self-care/Behavioral Modification Second Line [] Pelvic Physical Therapy [] Oral Medications [] Amitriptyline [] Cimetidine [] Hydroxyzine [] PPS ([place]iron) [] Bladder Instillations [] Frequency: aida [x] Pelvic Physical Therapy [] Oral Medications [] Amitriptyline [] Cimetidine [] Hydroxyzine [] PPS ([place]) [] Bladder Instillations [] Frequency: NA Third Line [] Cystoscopy with Hydrodistention Dates: NA [] Treatment of Hunner's Lesions Type: NA [] Cystoscopy with Hydrodistention Dates: NA [] Treatment of Hunner's Lesions Type: NA Fourth Line [] Intradetrusor Botox Dates: NA [] Neuromodulation Dates: NA [] Intradetrusor Botox Dates: NA [] Neuromodulation Dates: NA Fifth Line [] Cyclosporine A [] Cyclosporine A Sixth Line [] Diversion with or without cystectomy [] Substitution cystoplasty [] Diversion with or without cystectomy [] Substitution cystoplasty ? Denies history of OR, CAD, CHF, TIA, CVA, Seizures or Blood clots Past Medical History: Past Medical History: No date: Endometriosis No date: Interstitial cystitis No date: Pernicious anemia No date: PONV (postoperative nausea and vomiting) Past Surgical History: Past Surgical History: 2015: APPENDECTOMY 2019: PELVIC LAPAROSCOPY 2018: TONSILLECTOMY AND ADENOIDECTOMY (HISTORICAL) Medications Prior to Admission: Prior to Admission medications Medication Sig Start Date End Date Taking? Authorizing Provider amoxicillin-clavulanate (Augmentin) 875-125 MG tablet 09/11/23 Historical Provider, cyanocobalamin (Vitamin B-12) 1000 MCG tablet Take 1,000 mcg by mouth daily. Historical Provider, MD medroxyPROGESTERone (Depo-Provera) 150 MG/ML suspension prefilled syringe injection syringe 09/08/23 Historical Provider, prazosin (Minipress) 1 MG capsule TAKE 1 TO 2 CAPSULES BY MOUTH AT BEDTIME NEEDED TO PREVENT MIGRAINE 08/22/23 Historical Provider, CHRONIC NARCOTIC USE: No Allergies: Hydrocodone If patient has opioid allergy, is it okay to take Acetaminophen: okay to take tylenol Social History: TOBACCO: reports that she has never smoked. She has never been exposed to tobacco smoke. She has never used smokeless tobacco. ETOH: reports current alcohol use. Social History Substance and Sexual Activity Drug Use Never Family History: Family History Problem Relation Name Age of Onset Heart attack Father Hypertension Mother REVIEW OF SYSTEMS: Review of Systems Constitutional: Negative for chills and fever. Respiratory: Negative for cough and shortness of breath. Cardiovascular: Negative for chest pain and palpitations. Gastrointestinal: Negative for abdominal pain, diarrhea and vomiting. Genitourinary: Positive for pelvic pain. Negative for dysuria and hematuria. Skin: Negative for rash and wound. Neurological: Negative for dizziness and syncope. Physical Exam: Physical Exam Vitals reviewed. Constitutional: Appearance: Normal appearance. HENT: Head: Normocephalic and atraumatic. Right Ear: External ear normal. Left Ear: External ear normal. Nose: Nose normal. Mouth/Throat: Lips: [place]. Mouth: Mucous membranes are moist. Pharynx: Oropharynx is clear. Cardiovascular: Rate and Rhythm: Normal rate and regular rhythm. Heart sounds: Normal heart sounds. Pulmonary: Effort: No respiratory distress. Breath sounds: No stridor. Abdominal: General: Bowel sounds are normal. Palpations: Abdomen is soft. Tenderness: There is no abdominal tenderness. Musculoskeletal: Cervical back: Normal range of motion and neck supple. Comments: Moves all extremities. Skin: General: Skin is warm. Capillary Refill: Capillary refill takes less than 2 seconds. Findings: No rash. Neurological: Mental Status: She is alert and oriented to person, place, and time. Sensory: Sensation is intact. Motor: Motor function is intact. Coordination: Coordination is intact. Psychiatric: Mood and Affect: Mood and affect normal. Vitals: Vitals Value Taken Time BP 130/86 12/02/23 1334 Temp 36.7 C (98 F) 12/02/23 1334 Pulse 100 12/02/23 1334 Resp 16 12/02/23 1334 SpO2 96 % 12/02/23 1334 Labs: Lab Results Component Value Date WBC 10.5 08/09/2022 HGB 11.6 (L) 08/09/2022 MCV 96.8 08/09/2022 Lab Results Component Value Date NA 136 08/09/2022 K 3.8 08/09/2022 CL 108 (H) 08/09/2022 CO2 22 08/09/2022 BUN 5 (L) 08/09/2022 CREATININE 0.51 (L) 08/09/2022 GLUCOSE 109 (H) 08/09/2022 CALCIUM 9.0 08/09/2022 PROT 6.6 08/09/2022 ALKPHOS 48 08/09/2022 AST 20 08/09/2022 Colette's Simple Cardiac Risk Index: COLETTE'S SIMPLE CARDIAC RISK SCORE: 0 Interpretation: 0 Points Class I 0.5% 1 Point Class II 1.3% 2 Points Class III 3.6% 3+ Points Class IV 9.1% Postop Pain Management Plan (Pain consult ordered?): Pain consult not indicated at this time ? EKG: n/a ECHO and EF:None on file METS: >4 - Yes Electronically signed by: Jesica Degroot APRN - CREW DIRECTOR Date: 12/02/2023 at 2:28 PM Images from the original note were not included. 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 She is here for Diagnostic Laparoscopy, Excision of endometriosis. The procedure risks and complications were reviewed. The labs, consent, and H&P were reviewed and updated as appropriate. The patient had all of her questions answered. OBSTETRICAL HISTORY: OB History Para Term AB Living 1 1 1 0 0 1 SAB IAB Ectopic Multiple Live Births 0 0 0 0 1 # Outcome Date GA Lbr Pilo/2nd Weight Sex Delivery Anes PTL Lv 1 Term PAST MEDICAL HISTORY: Past Medical History: Diagnosis Date Endometriosis Interstitial cystitis Pernicious anemia PONV (postoperative nausea and vomiting) PAST SURGICAL HISTORY: Past Surgical History: Procedure Laterality Date APPENDECTOMY 2015 PELVIC LAPAROSCOPY 2019 TONSILLECTOMY AND ADENOIDECTOMY (HISTORICAL) 2018 ALLERGIES: Allergies Allergen Reactions Hydrocodone Hives, Itching and Rash MEDICATIONS: Current Facility-Administered Medications: lactated Ringer's (LR) infusion, 50 mL/hr, IntraVENous, Continuous, Uriel Travis MD, Last Rate: 50 mL/hr at 12/08/23 1148, 50 mL/hr at 12/08/23 1148 sodium chloride 0.9 % infusion, 5-250 mL/hr, IntraVENous, PRN, Uriel Travis MD sodium chloride 0.9% (NS) flush 5-40 mL, 5-40 mL, IntraVENous, q12h, Uriel Travis MD sodium chloride 0.9% (NS) flush 5-40 mL, 5-40 mL, IntraVENous, PRN, Uriel Travis MD FAMILY HISTORY: family history includes Heart attack in her father; Hypertension in her mother. SOCIAL HISTORY: Social History Socioeconomic History Marital status: Single Spouse name: Not on file Number of children: Not on file Years of education: Not on file Highest education level: Not on file Occupational History Not on file Tobacco Use Smoking status: Never Passive exposure: Never Smokeless tobacco: Never Vaping Use Vaping Use: Never used Substance and Sexual Activity Alcohol use: Yes Comment: once a month Drug use: Never Sexual activity: Yes control/protection: Injection Other Topics Concern Not on file Social History Narrative Not on file Social Determinants of Health Financial Resource Strain: Not on file Food Insecurity: Not on file Transportation Needs: Not on file Physical Activity: Not on file Stress: Not on file Social Connections: Not on file Intimate Partner Violence: Not on file Housing Stability: Not on file VITALS: Vitals: 12/08/23 1126 BP: 131/83 Pulse: 87 Resp: 15 Temp: 36.6 C (97.8 F) TempSrc: Temporal SpO2: 99% Weight: 98 kg (216 lb) Height: 1.626 m (5' 4 ) PHYSICAL EXAM and ROS: Unchanged from Prior H&P LAB RESULTS: Admission on 12/08/2023 Component Date Value Ref Range Status Preg Test, Ur 12/08/2023 Negative Negative Final POSITIVE QC 12/08/2023 Pass Final NEGATIVE QC 12/08/2023 Pass Final HCG LOT NUMBER 12/08/2023 [id number] Final Pre-Admission Testing on 12/02/2023 Component Date Value Ref Range Status Hemoglobin 12/02/2023 14.7 11.7 - 16.0 g/dL Final Hematocrit 12/02/2023 43.9 35.0 - 47.0 % Final DIAGNOSTICS: No results found. DIAGNOSIS & PLAN: - Proceed with planned procedure: Diagnostic Laparoscopy, Excision of Endometriosis. - The attending physician reviewed the procedure and associated complications. The labs, consent, and H&P were reviewed and updated as appropriate by the attending physician. The patient had all of her questions answered. - Consent was signed by the attending physician - The patient is ready for transport to the operative suite. Sharonda Molina DO 12/08/2023, 12:45 PM Source Note - Jesica Degroot APRN - CREW DIRECTOR - 12/02/2023 1:30 PM EST Comprehensive Pre Surgical History and Physical ? Name: Poncho Case : 2000 (Age-23 y.o.) Date of Service: Pt seen/examined on 12/02/2023 Procedure Information Date/Time: 12/08/23 1300 Procedures: PELVIC EXAMINATION UNDER ANESTHESIA, CYSTOSCOPY WITH HYDRODISTENTION, TRIGGER POINT INJECTIONS, PUDENDAL NERVE BLOCK, DIAGNOSTIC LAPAROSCOPY, LAPAROSCOPIC EXCISION OF ENDOMETRIOSIS - TOTAL TIME REQUESTED 150 MINS WITH CHANGE-OVER CYSTOSCOPY DILATION OF BLADDER (GENERAL OR SPINAL ANESTHESIA) (Urethra) INJECTION(S) SINGLE OR MULTIPLE TRIGGER POINTS 1 0R 2 MUSCLES INJECTION ANESTHETIC AGENT PUDENDAL NERVE LAPAROSCOPY FULGURATION/EXCISION OF LESIONS (Abdomen) DIAGNOSTIC LAPAROSCOPY (Abdomen) LAPAROSCOPY FULGURATION/EXCISION OF LESIONS (Abdomen) Location: [facility] [address] [address] Operating Room Surgeons: Lorenza Erickson DO; Sharonda Molina DO Chief Complaint: Interstitial cystitis (chronic) without hematuria [N30.10] Pelvic and perineal pain [R10.2] Other chronic pain [G89.29] ASSESSMENT/PLAN: Patient is considered low risk for this intermediate level 1 risk procedure/surgery (PELVIC EXAMINATION UNDER ANESTHESIA, CYSTOSCOPY WITH HYDRODISTENTION, TRIGGER POINT INJECTIONS, PUDENDAL NERVE BLOCK, DIAGNOSTIC LAPAROSCOPY, LAPAROSCOPIC EXCISION OF ENDOMETRIOSIS - TOTAL TIME REQUESTED 150 MINS WITH CHANGE-OVER CYSTOSCOPY DILATION OF BLADDER (GENERAL OR SPINAL ANESTHESIA) (Urethra) INJECTION(S) SINGLE OR MULTIPLE TRIGGER POINTS 1 0R 2 MUSCLES INJECTION ANESTHETIC AGENT PUDENDAL NERVE LAPAROSCOPY FULGURATION/EXCISION OF LESIONS (Abdomen) DIAGNOSTIC LAPAROSCOPY (Abdomen) LAPAROSCOPY FULGURATION/EXCISION OF LESIONS (Abdomen)) with no reducible risk factors. Based on the above evaluation, the benefits of the planned procedure likely exceed the risks. 1) Interstitial cystitis (chronic) without hematuria [N30.10] Pelvic and perineal pain [R10.2] Other chronic pain [G89.29] - Managed per surgery - Anesthesia Lab Protocol Orders 2) Anemia - source - pernicious -Resume b12 supplementation - has required a blood transfusion - No - H&H pending Yes Lab Results Component Value Date WBC 10.5 08/09/2022 HGB 11.6 (L) 08/09/2022 MCV 96.8 08/09/2022 3) Difficult IV access/stick -Per pt. H&H drawn today in PAT. Visit Type: Pre-Admission Testing Visit Labs Ordered: YES - PER PAT PROTOCOL Sleep Referral Ordered: NO - NEGATIVE SCREEN PER SLEEP REFERRAL PROTOCOL Total time spent (which include face to face and non face to face encounters) : 30 minutes Toxic drug monitoring/narrow therapeutic index drug monitoring :no # Drug name : NA # Route administered : NA # Method of monitoring : NA PAT Protocol referenced includes: 1. Anesthesia Lab Protocol Orders 2. Perioperative Cardiovascular Risk Assessment 3. Anesthesia Assessment 4. Pain Assessment and Acute Pain Service Consult (if appropriate) 5. Medical Clearance/Consult from Internal Medicine (IMS) 6. Shower/Wash Order (for designated surgeries) 7. [facility] Screen and Sleep Clinic Referral (if appropriate) History Of Present Illness: Case: [id number] Date/Time: 12/08/23 1300 Procedures: PELVIC EXAMINATION UNDER ANESTHESIA, CYSTOSCOPY WITH HYDRODISTENTION, TRIGGER POINT INJECTIONS, PUDENDAL NERVE BLOCK, DIAGNOSTIC LAPAROSCOPY, LAPAROSCOPIC EXCISION OF ENDOMETRIOSIS [00553 CPT(R)] - TOTAL TIME REQUESTED 150 MINS WITH CHANGE-OVER CYSTOSCOPY DILATION OF BLADDER (GENERAL OR SPINAL ANESTHESIA) (Urethra) [29049 CPT(R)] INJECTION(S) SINGLE OR MULTIPLE TRIGGER POINTS 1 0R 2 MUSCLES [31504 CPT(R)] INJECTION ANESTHETIC AGENT PUDENDAL NERVE [89848 CPT(R)] LAPAROSCOPY FULGURATION/EXCISION OF LESIONS (Abdomen) [11453 CPT(R)] DIAGNOSTIC LAPAROSCOPY (Abdomen) [19439 CPT(R)] LAPAROSCOPY FULGURATION/EXCISION OF LESIONS (Abdomen) [05811 CPT(R)] Anesthesia type: General Diagnosis: Interstitial cystitis (chronic) without hematuria [N30.10] Pelvic and perineal pain [R10.2] Other chronic pain [G89.29] Patient follows with Dr. Erickson for management of IC and endometriosis with plans for a combination case with urogynecology for cystoscopy hydrodistention, pudendal nerve block and possible trigger point injections. On assessment today, patient is in NAD with no acute complaints. IC/BPS Treatment history from last OV on 09/18/23: Current treatment Previous treatment First Line [x] General Relaxation/Stress Management [x] Pain Management (Tylenol, NSAIDs) [x] Self-care/Behavioral Modification [x] General Relaxation/Stress Management [x] Pain Management (Tylenol, NSAIDs) [x] Self-care/Behavioral Modification Second Line [] Pelvic Physical Therapy [] Oral Medications [] Amitriptyline [] Cimetidine [] Hydroxyzine [] PPS ([place]) [] Bladder Instillations [] Frequency: aida [x] Pelvic Physical Therapy [] Oral Medications [] Amitriptyline [] Cimetidine [] Hydroxyzine [] PPS ([place]) [] Bladder Instillations [] Frequency: NA Third Line [] Cystoscopy with Hydrodistention Dates: NA [] Treatment of Hunner's Lesions Type: NA [] Cystoscopy with Hydrodistention Dates: NA [] Treatment of Hunner's Lesions Type: NA Fourth Line [] Intradetrusor Botox Dates: NA [] Neuromodulation Dates: NA [] Intradetrusor Botox Dates: NA [] Neuromodulation Dates: NA Fifth Line [] Cyclosporine A [] Cyclosporine A Sixth Line [] Diversion with or without cystectomy [] Substitution cystoplasty [] Diversion with or without cystectomy [] Substitution cystoplasty ? Denies history of OR, CAD, CHF, TIA, CVA, Seizures or Blood clots Past Medical History: Past Medical History: No date: Endometriosis No date: Interstitial cystitis No date: Pernicious anemia No date: PONV (postoperative nausea and vomiting) Past Surgical History: Past Surgical History: 2015: APPENDECTOMY 2019: PELVIC LAPAROSCOPY 2018: TONSILLECTOMY AND ADENOIDECTOMY (HISTORICAL) Medications Prior to Admission: Prior to Admission medications Medication Sig Start Date End Date Taking? Authorizing Provider amoxicillin-clavulanate (Augmentin) 875-125 MG tablet 09/11/23 Historical Provider, cyanocobalamin (Vitamin B-12) 1000 MCG tablet Take 1,000 mcg by mouth daily. Historical Provider, medroxyPROGESTERone (Depo-Provera) 150 MG/ML suspension prefilled syringe injection syringe 09/08/23 Historical Provider, prazosin (Minipress) 1 MG capsule TAKE 1 TO 2 CAPSULES BY MOUTH AT BEDTIME NEEDED TO PREVENT MIGRAINE 08/22/23 Historical Provider, CHRONIC NARCOTIC USE: No Allergies: Hydrocodone If patient has opioid allergy, is it okay to take Acetaminophen: okay to take tylenol Social History: TOBACCO: reports that she has never smoked. She has never been exposed to tobacco smoke. She has never used smokeless tobacco. ETOH: reports current alcohol use. Social History Substance and Sexual Activity Drug Use Never Family History: Family History Problem Relation Name Age of Onset Heart attack Father Hypertension Mother REVIEW OF SYSTEMS: Review of Systems Constitutional: Negative for chills and fever. Respiratory: Negative for cough and shortness of breath. Cardiovascular: Negative for chest pain and palpitations. Gastrointestinal: Negative for abdominal pain, diarrhea and vomiting. Genitourinary: Positive for pelvic pain. Negative for dysuria and hematuria. Skin: Negative for rash and wound. Neurological: Negative for dizziness and syncope. Physical Exam: Physical Exam Vitals reviewed. Constitutional: Appearance: Normal appearance. HENT: Head: Normocephalic and atraumatic. Right Ear: External ear normal. Left Ear: External ear normal. Nose: Nose normal. Mouth/Throat: Lips: [place]. Mouth: Mucous membranes are moist. Pharynx: Oropharynx is clear. Cardiovascular: Rate and Rhythm: Normal rate and regular rhythm. Heart sounds: Normal heart sounds. Pulmonary: Effort: No respiratory distress. Breath sounds: No stridor. Abdominal: General: Bowel sounds are normal. Palpations: Abdomen is soft. Tenderness: There is no abdominal tenderness. Musculoskeletal: Cervical back: Normal range of motion and neck supple. Comments: Moves all extremities. Skin: General: Skin is warm. Capillary Refill: Capillary refill takes less than 2 seconds. Findings: No rash. Neurological: Mental Status: She is alert and oriented to person, place, and time. Sensory: Sensation is intact. Motor: Motor function is intact. Coordination: Coordination is intact. Psychiatric: Mood and Affect: Mood and affect normal. Vitals: Vitals Value Taken Time BP 130/86 12/02/23 1334 Temp 36.7 C (98 F) 12/02/23 1334 Pulse 100 12/02/23 1334 Resp 16 12/02/23 1334 SpO2 96 % 12/02/23 1334 Labs: Lab Results Component Value Date WBC 10.5 08/09/2022 HGB 11.6 (L) 08/09/2022 MCV 96.8 08/09/2022 Lab Results Component Value Date NA 136 08/09/2022 K 3.8 08/09/2022 CL 108 (H) 08/09/2022 CO2 22 08/09/2022 BUN 5 (L) 08/09/2022 CREATININE 0.51 (L) 08/09/2022 GLUCOSE 109 (H) 08/09/2022 CALCIUM 9.0 08/09/2022 PROT 6.6 08/09/2022 ALKPHOS 48 08/09/2022 AST 20 08/09/2022 Colette's Simple Cardiac Risk Index: COLETTE'S SIMPLE CARDIAC RISK SCORE: 0 Interpretation: 0 Points Class I 0.5% 1 Point Class II 1.3% 2 Points Class III 3.6% 3+ Points Class IV 9.1% Postop Pain Management Plan (Pain consult ordered?): Pain consult not indicated at this time ? EKG: n/a ECHO and EF:None on file METS: >4 - Yes Electronically signed by: FRANCES Rowan CNP Date: 12/02/2023 at 2:28 PM documented in this encounter [facility] 12-08-2023 Attending History and physical note Images from the original note were not included. 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 She is here for Diagnostic Laparoscopy, Excision of endometriosis. The procedure risks and complications were reviewed. The labs, consent, and H&P were reviewed and updated as appropriate. The patient had all of her questions answered. OBSTETRICAL HISTORY: OB History Para Term AB Living 1 1 1 0 0 1 SAB IAB Ectopic Multiple Live Births 0 0 0 0 1 # Outcome Date GA Lbr Pilo/2nd Weight Sex Delivery Anes PTL Lv 1 Term PAST MEDICAL HISTORY: Past Medical History: Diagnosis Date Endometriosis Interstitial cystitis Pernicious anemia PONV (postoperative nausea and vomiting) PAST SURGICAL HISTORY: Past Surgical History: Procedure Laterality Date APPENDECTOMY 2015 PELVIC LAPAROSCOPY 2019 TONSILLECTOMY AND ADENOIDECTOMY (HISTORICAL) 2018 ALLERGIES: Allergies Allergen Reactions Hydrocodone Hives, Itching and Rash MEDICATIONS: Current Facility-Administered Medications: lactated Ringer's (LR) infusion, 50 mL/hr, IntraVENous, Continuous, Uriel Travis MD, Last Rate: 50 mL/hr at 12/08/23 1148, 50 mL/hr at 12/08/23 1148 sodium chloride 0.9 % infusion, 5-250 mL/hr, IntraVENous, PRN, Uriel Travis MD sodium chloride 0.9% (NS) flush 5-40 mL, 5-40 mL, IntraVENous, q12h, Uriel Travis MD sodium chloride 0.9% (NS) flush 5-40 mL, 5-40 mL, IntraVENous, PRN, Uriel Travis MD FAMILY HISTORY: family history includes Heart attack in her father; Hypertension in her mother. SOCIAL HISTORY: Social History Socioeconomic History Marital status: Single Spouse name: Not on file Number of children: Not on file Years of education: Not on file Highest education level: Not on file Occupational History Not on file Tobacco Use Smoking status: Never Passive exposure: Never Smokeless tobacco: Never Vaping Use Vaping Use: Never used Substance and Sexual Activity Alcohol use: Yes Comment: once a month Drug use: Never Sexual activity: Yes control/protection: Injection Other Topics Concern Not on file Social History Narrative Not on file Social Determinants of Health Financial Resource Strain: Not on file Food Insecurity: Not on file Transportation Needs: Not on file Physical Activity: Not on file Stress: Not on file Social Connections: Not on file Intimate Partner Violence: Not on file Housing Stability: Not on file VITALS: Vitals: 12/08/23 1126 BP: 131/83 Pulse: 87 Resp: 15 Temp: 36.6 C (97.8 F) TempSrc: Temporal SpO2: 99% Weight: 98 kg (216 lb) Height: 1.626 m (5' 4 ) PHYSICAL EXAM and ROS: Unchanged from Prior H&P LAB RESULTS: Admission on 12/08/2023 Component Date Value Ref Range Status Preg Test, Ur 12/08/2023 Negative Negative Final POSITIVE QC 12/08/2023 Pass Final NEGATIVE QC 12/08/2023 Pass Final HCG LOT NUMBER 12/08/2023 [id number] Final Pre-Admission Testing on 12/02/2023 Component Date Value Ref Range Status Hemoglobin 12/02/2023 14.7 11.7 - 16.0 g/dL Final Hematocrit 12/02/2023 43.9 35.0 - 47.0 % Final DIAGNOSTICS: No results found. DIAGNOSIS & PLAN: - Proceed with planned procedure: Diagnostic Laparoscopy, Excision of Endometriosis. - The attending physician reviewed the procedure and associated complications. The labs, consent, and H&P were reviewed and updated as appropriate by the attending physician. The patient had all of her questions answered. - Consent was signed by the attending physician - The patient is ready for transport to the operative suite. Sharonda Molina DO 12/08/2023, 12:45 PM Source Note - Jesica Degroot APRN - [facility] - 12/02/2023 1:30 PM EST Comprehensive Pre Surgical History and Physical ? Name: Poncho Case : 2000 (Age-23 y.o.) Date of Service: Pt seen/examined on 12/02/2023 Procedure Information Date/Time: 12/08/23 1300 Procedures: PELVIC EXAMINATION UNDER ANESTHESIA, CYSTOSCOPY WITH HYDRODISTENTION, TRIGGER POINT INJECTIONS, PUDENDAL NERVE BLOCK, DIAGNOSTIC LAPAROSCOPY, LAPAROSCOPIC EXCISION OF ENDOMETRIOSIS - TOTAL TIME REQUESTED 150 MINS WITH CHANGE-OVER CYSTOSCOPY DILATION OF BLADDER (GENERAL OR SPINAL ANESTHESIA) (Urethra) INJECTION(S) SINGLE OR MULTIPLE TRIGGER POINTS 1 0R 2 MUSCLES INJECTION ANESTHETIC AGENT PUDENDAL NERVE LAPAROSCOPY FULGURATION/EXCISION OF LESIONS (Abdomen) DIAGNOSTIC LAPAROSCOPY (Abdomen) LAPAROSCOPY FULGURATION/EXCISION OF LESIONS (Abdomen) Location: [address] Operating Room Surgeons: Lorenza Erickson DO; Sharonda Molina DO Chief Complaint: Interstitial cystitis (chronic) without hematuria [N30.10] Pelvic and perineal pain [R10.2] Other chronic pain [G89.29] ASSESSMENT/PLAN: Patient is considered low risk for this intermediate level 1 risk procedure/surgery (PELVIC EXAMINATION UNDER ANESTHESIA, CYSTOSCOPY WITH HYDRODISTENTION, TRIGGER POINT INJECTIONS, PUDENDAL NERVE BLOCK, DIAGNOSTIC LAPAROSCOPY, LAPAROSCOPIC EXCISION OF ENDOMETRIOSIS - TOTAL TIME REQUESTED 150 MINS WITH CHANGE-OVER CYSTOSCOPY DILATION OF BLADDER (GENERAL OR SPINAL ANESTHESIA) (Urethra) INJECTION(S) SINGLE OR MULTIPLE TRIGGER POINTS 1 0R 2 MUSCLES INJECTION ANESTHETIC AGENT PUDENDAL NERVE LAPAROSCOPY FULGURATION/EXCISION OF LESIONS (Abdomen) DIAGNOSTIC LAPAROSCOPY (Abdomen) LAPAROSCOPY FULGURATION/EXCISION OF LESIONS (Abdomen)) with no reducible risk factors. Based on the above evaluation, the benefits of the planned procedure likely exceed the risks. 1) Interstitial cystitis (chronic) without hematuria [N30.10] Pelvic and perineal pain [R10.2] Other chronic pain [G89.29] - Managed per surgery - Anesthesia Lab Protocol Orders 2) Anemia - source - pernicious -Resume b12 supplementation - has required a blood transfusion - No - H&H pending Yes Lab Results Component Value Date WBC 10.5 08/09/2022 HGB 11.6 (L) 08/09/2022 MCV 96.8 08/09/2022 3) Difficult IV access/stick -Per pt. H&H drawn today in PAT. Visit Type: Pre-Admission Testing Visit Labs Ordered: YES - PER PAT PROTOCOL Sleep Referral Ordered: NO - NEGATIVE SCREEN PER SLEEP REFERRAL PROTOCOL Total time spent (which include face to face and non face to face encounters) : 30 minutes Toxic drug monitoring/narrow therapeutic index drug monitoring :no # Drug name : NA # Route administered : NA # Method of monitoring : NA PAT Protocol referenced includes: 1. Anesthesia Lab Protocol Orders 2. Perioperative Cardiovascular Risk Assessment 3. Anesthesia Assessment 4. Pain Assessment and Acute Pain Service Consult (if appropriate) 5. Medical Clearance/Consult from Internal Medicine (IMS) 6. Shower/Wash Order (for designated surgeries) 7. [facility] Screen and Sleep Clinic Referral (if appropriate) History Of Present Illness: Case: [id number] Date/Time: 12/08/23 1300 Procedures: PELVIC EXAMINATION UNDER ANESTHESIA, CYSTOSCOPY WITH HYDRODISTENTION, TRIGGER POINT INJECTIONS, PUDENDAL NERVE BLOCK, DIAGNOSTIC LAPAROSCOPY, LAPAROSCOPIC EXCISION OF ENDOMETRIOSIS [60669 CPT(R)] - TOTAL TIME REQUESTED 150 MINS WITH CHANGE-OVER CYSTOSCOPY DILATION OF BLADDER (GENERAL OR SPINAL ANESTHESIA) (Urethra) [51676 CPT(R)] INJECTION(S) SINGLE OR MULTIPLE TRIGGER POINTS 1 0R 2 MUSCLES [36982 CPT(R)] INJECTION ANESTHETIC AGENT PUDENDAL NERVE [57796 CPT(R)] LAPAROSCOPY FULGURATION/EXCISION OF LESIONS (Abdomen) [14079 CPT(R)] DIAGNOSTIC LAPAROSCOPY (Abdomen) [29865 CPT(R)] LAPAROSCOPY FULGURATION/EXCISION OF LESIONS (Abdomen) [00386 CPT(R)] Anesthesia type: General Diagnosis: Interstitial cystitis (chronic) without hematuria [N30.10] Pelvic and perineal pain [R10.2] Other chronic pain [G89.29] Patient follows with Dr. Erickson for management of IC and endometriosis with plans for a combination case with urogynecology for cystoscopy hydrodistention, pudendal nerve block and possible trigger point injections. On assessment today, patient is in NAD with no acute complaints. IC/BPS Treatment history from last OV on 09/18/23: Current treatment Previous treatment First Line [x] General Relaxation/Stress Management [x] Pain Management (Tylenol, NSAIDs) [x] Self-care/Behavioral Modification [x] General Relaxation/Stress Management [x] Pain Management (Tylenol, NSAIDs) [x] Self-care/Behavioral Modification Second Line [] Pelvic Physical Therapy [] Oral Medications [] Amitriptyline [] Cimetidine [] Hydroxyzine [] PPS ([place]iron) [] Bladder Instillations [] Frequency: aida [x] Pelvic Physical Therapy [] Oral Medications [] Amitriptyline [] Cimetidine [] Hydroxyzine [] PPS ([place]) [] Bladder Instillations [] Frequency: NA Third Line [] Cystoscopy with Hydrodistention Dates: NA [] Treatment of Hunner's Lesions Type: NA [] Cystoscopy with Hydrodistention Dates: NA [] Treatment of Hunner's Lesions Type: NA Fourth Line [] Intradetrusor Botox Dates: NA [] Neuromodulation Dates: NA [] Intradetrusor Botox Dates: NA [] Neuromodulation Dates: NA Fifth Line [] Cyclosporine A [] Cyclosporine A Sixth Line [] Diversion with or without cystectomy [] Substitution cystoplasty [] Diversion with or without cystectomy [] Substitution cystoplasty ? Denies history of OR, CAD, CHF, TIA, CVA, Seizures or Blood clots Past Medical History: Past Medical History: No date: Endometriosis No date: Interstitial cystitis No date: Pernicious anemia No date: PONV (postoperative nausea and vomiting) Past Surgical History: Past Surgical History: 2015: APPENDECTOMY 2019: PELVIC LAPAROSCOPY 2018: TONSILLECTOMY AND ADENOIDECTOMY (HISTORICAL) Medications Prior to Admission: Prior to Admission medications Medication Sig Start Date End Date Taking? Authorizing Provider amoxicillin-clavulanate (Augmentin) 875-125 MG tablet 09/11/23 Historical Provider, cyanocobalamin (Vitamin B-12) 1000 MCG tablet Take 1,000 mcg by mouth daily. Historical Provider, medroxyPROGESTERone (Depo-Provera) 150 MG/ML suspension prefilled syringe injection syringe 09/08/23 Historical Provider, prazosin (Minipress) 1 MG capsule TAKE 1 TO 2 CAPSULES BY MOUTH AT BEDTIME NEEDED TO PREVENT MIGRAINE 08/22/23 Historical Provider, CHRONIC NARCOTIC USE: No Allergies: Hydrocodone If patient has opioid allergy, is it okay to take Acetaminophen: okay to take tylenol Social History: TOBACCO: reports that she has never smoked. She has never been exposed to tobacco smoke. She has never used smokeless tobacco. ETOH: reports current alcohol use. Social History Substance and Sexual Activity Drug Use Never Family History: Family History Problem Relation Name Age of Onset Heart attack Father Hypertension Mother REVIEW OF SYSTEMS: Review of Systems Constitutional: Negative for chills and fever. Respiratory: Negative for cough and shortness of breath. Cardiovascular: Negative for chest pain and palpitations. Gastrointestinal: Negative for abdominal pain, diarrhea and vomiting. Genitourinary: Positive for pelvic pain. Negative for dysuria and hematuria. Skin: Negative for rash and wound. Neurological: Negative for dizziness and syncope. Physical Exam: Physical Exam Vitals reviewed. Constitutional: Appearance: Normal appearance. HENT: Head: Normocephalic and atraumatic. Right Ear: External ear normal. Left Ear: External ear normal. Nose: Nose normal. Mouth/Throat: Lips: [place]. Mouth: Mucous membranes are moist. Pharynx: Oropharynx is clear. Cardiovascular: Rate and Rhythm: Normal rate and regular rhythm. Heart sounds: Normal heart sounds. Pulmonary: Effort: No respiratory distress. Breath sounds: No stridor. Abdominal: General: Bowel sounds are normal. Palpations: Abdomen is soft. Tenderness: There is no abdominal tenderness. Musculoskeletal: Cervical back: Normal range of motion and neck supple. Comments: Moves all extremities. Skin: General: Skin is warm. Capillary Refill: Capillary refill takes less than 2 seconds. Findings: No rash. Neurological: Mental Status: She is alert and oriented to person, place, and time. Sensory: Sensation is intact. Motor: Motor function is intact. Coordination: Coordination is intact. Psychiatric: Mood and Affect: Mood and affect normal. Vitals: Vitals Value Taken Time BP 130/86 12/02/23 1334 Temp 36.7 C (98 F) 12/02/23 1334 Pulse 100 12/02/23 1334 Resp 16 12/02/23 1334 SpO2 96 % 12/02/23 1334 Labs: Lab Results Component Value Date WBC 10.5 08/09/2022 HGB 11.6 (L) 08/09/2022 MCV 96.8 08/09/2022 Lab Results Component Value Date NA 136 08/09/2022 K 3.8 08/09/2022 CL 108 (H) 08/09/2022 CO2 22 08/09/2022 BUN 5 (L) 08/09/2022 CREATININE 0.51 (L) 08/09/2022 GLUCOSE 109 (H) 08/09/2022 CALCIUM 9.0 08/09/2022 PROT 6.6 08/09/2022 ALKPHOS 48 08/09/2022 AST 20 08/09/2022 Colette's Simple Cardiac Risk Index: COLETTE'S SIMPLE CARDIAC RISK SCORE: 0 Interpretation: 0 Points Class I 0.5% 1 Point Class II 1.3% 2 Points Class III 3.6% 3+ Points Class IV 9.1% Postop Pain Management Plan (Pain consult ordered?): Pain consult not indicated at this time ? EKG: n/a ECHO and EF:None on file METS: >4 - Yes Electronically signed by: Jesica Degroot APRN - CREW DIRECTOR Date: 12/02/2023 at 2:28 PM [employer] Phone: 12-02-2023 Note Patient: Poncho emerson Procedure Information Date/Time: 12/08/23 1300 Procedures: PELVIC EXAMINATION UNDER ANESTHESIA, CYSTOSCOPY WITH HYDRODISTENTION, TRIGGER POINT INJECTIONS, PUDENDAL NERVE BLOCK, DIAGNOSTIC LAPAROSCOPY, LAPAROSCOPIC EXCISION OF ENDOMETRIOSIS - TOTAL TIME REQUESTED 150 MINS WITH CHANGE-OVER CYSTOSCOPY DILATION OF BLADDER (GENERAL OR SPINAL ANESTHESIA) (Urethra) INJECTION(S) SINGLE OR MULTIPLE TRIGGER POINTS 1 0R 2 MUSCLES INJECTION ANESTHETIC AGENT PUDENDAL NERVE LAPAROSCOPY FULGURATION/EXCISION OF LESIONS (Abdomen) DIAGNOSTIC LAPAROSCOPY (Abdomen) LAPAROSCOPY FULGURATION/EXCISION OF LESIONS (Abdomen) Location: [address] Operating Room Surgeons: Lorenza Erickson DO; Sharonda Molina DO Past Medical History: Past Medical History: No date: Endometriosis No date: Interstitial cystitis No date: Pernicious anemia No date: PONV (postoperative nausea and vomiting) Past Surgical History: Past Surgical History: 2015: APPENDECTOMY 2019: PELVIC LAPAROSCOPY 2018: TONSILLECTOMY AND ADENOIDECTOMY (HISTORICAL) Social History: TOBACCO: reports that she has never smoked. She has never been exposed to tobacco smoke. She has never used smokeless tobacco. ETOH: reports current alcohol use. Social History Substance and Sexual Activity Drug Use Never Family History: Family History Problem Relation Name Age of Onset ? Heart attack Father ? Hypertension Mother Screening: Injection Clinical information reviewed: Tobacco Allergies Meds Med Hx Surg Hx OB Status Fam Hx Soc Hx Physical Exam Airway Mallampati: II TM distance: >3 FB Neck ROM: full Mouth Open: normalendotracheal tube not in place Cardiovascular Dental dentition normal Pulmonary Abdominal Anesthesia Plan patient is NPO appropriate Any family history or previous problems with anesthesia no ASA 2 general and regional Any family history or previous problems with anesthesia no(TAP) The patient is not a current smoker. Anesthetic plan and risks discussed with patient (bry). ERAS Type General ERAS [facility] Screening STOP-Bang Total Score: 1 Labs: Lab Results Component Value Date WBC 10.5 08/09/2022 HGB 11.6 (L) 08/09/2022 MCV 96.8 08/09/2022 Lab Results Component Value Date NA 136 08/09/2022 K 3.8 08/09/2022 CL 108 (H) 08/09/2022 CO2 22 08/09/2022 BUN 5 (L) 08/09/2022 CREATININE 0.51 (L) 08/09/2022 GLUCOSE 109 (H) 08/09/2022 CALCIUM 9.0 08/09/2022 PROT 6.6 08/09/2022 ALKPHOS 48 08/09/2022 AST 20 08/09/2022 No echocardiogram results found for the past 14 days No results found for this or any previous visit. [facility] 12-02-2023 Note Comprehensive Pre Javier rgical History and Physical ? Name: Poncho Case : 2000 (Age-23 y.o.) Date of Service: Pt seen/examined on 12/02/2023 Procedure Information Date/Time: 12/08/23 1300 Procedures: PELVIC EXAMINATION UNDER ANESTHESIA, CYSTOSCOPY WITH HYDRODISTENTION, TRIGGER POINT INJECTIONS, PUDENDAL NERVE BLOCK, DIAGNOSTIC LAPAROSCOPY, LAPAROSCOPIC EXCISION OF ENDOMETRIOSIS - TOTAL TIME REQUESTED 150 MINS WITH CHANGE-OVER CYSTOSCOPY DILATION OF BLADDER (GENERAL OR SPINAL ANESTHESIA) (Urethra) INJECTION(S) SINGLE OR MULTIPLE TRIGGER POINTS 1 0R 2 MUSCLES INJECTION ANESTHETIC AGENT PUDENDAL NERVE LAPAROSCOPY FULGURATION/EXCISION OF LESIONS (Abdomen) DIAGNOSTIC LAPAROSCOPY (Abdomen) LAPAROSCOPY FULGURATION/EXCISION OF LESIONS (Abdomen) Location: [address] Operating Room Surgeons: Lorenza Erickson DO; Sharonda Molina DO Chief Complaint: Interstitial cystitis (chronic) without hematuria [N30.10] Pelvic and perineal pain [R10.2] Other chronic pain [G89.29] ASSESSMENT/PLAN: Patient is considered low risk for this intermediate level 1 risk procedure/surgery (PELVIC EXAMINATION UNDER ANESTHESIA, CYSTOSCOPY WITH HYDRODISTENTION, TRIGGER POINT INJECTIONS, PUDENDAL NERVE BLOCK, DIAGNOSTIC LAPAROSCOPY, LAPAROSCOPIC EXCISION OF ENDOMETRIOSIS - TOTAL TIME REQUESTED 150 MINS WITH CHANGE-OVER CYSTOSCOPY DILATION OF BLADDER (GENERAL OR SPINAL ANESTHESIA) (Urethra) INJECTION(S) SINGLE OR MULTIPLE TRIGGER POINTS 1 0R 2 MUSCLES INJECTION ANESTHETIC AGENT PUDENDAL NERVE LAPAROSCOPY FULGURATION/EXCISION OF LESIONS (Abdomen) DIAGNOSTIC LAPAROSCOPY (Abdomen) LAPAROSCOPY FULGURATION/EXCISION OF LESIONS (Abdomen)) with no reducible risk factors. Based on the above evaluation, the benefits of the planned procedure likely exceed the risks. 1) Interstitial cystitis (chronic) without hematuria [N30.10] Pelvic and perineal pain [R10.2] Other chronic pain [G89.29] - Managed per surgery - Anesthesia Lab Protocol Orders 2) Anemia - source - pernicious -Resume b12 supplementation - has required a blood transfusion - No - H&H pending Yes Lab Results Component Value Date WBC 10.5 08/09/2022 HGB 11.6 (L) 08/09/2022 MCV 96.8 08/09/2022 3) Difficult IV access/stick -Per pt. H&H drawn today in PAT. Visit Type: Pre-Admission Testing Visit Labs Ordered: YES - PER PAT PROTOCOL Sleep Referral Ordered: NO - NEGATIVE SCREEN PER SLEEP REFERRAL PROTOCOL Total time spent (which include face to face and non face to face encounters) : 30 minutes Toxic drug monitoring/narrow therapeutic index drug monitoring :no # Drug name : NA # Route administered : NA # Method of monitoring : NA PAT Protocol referenced includes: 1. Anesthesia Lab Protocol Orders 2. Perioperative Cardiovascular Risk Assessment 3. Anesthesia Assessment 4. Pain Assessment and Acute Pain Service Consult (if appropriate) 5. Medical Clearance/Consult from Internal Medicine (IMS) 6. Shower/Wash Order (for designated surgeries) 7. [facility] Screen and Sleep Clinic Referral (if appropriate) History Of Present Illness: Case: [id number] Date/Time: 12/08/23 1300 Procedures: PELVIC EXAMINATION UNDER ANESTHESIA, CYSTOSCOPY WITH HYDRODISTENTION, TRIGGER POINT INJECTIONS, PUDENDAL NERVE BLOCK, DIAGNOSTIC LAPAROSCOPY, LAPAROSCOPIC EXCISION OF ENDOMETRIOSIS [32068 CPT(R)] - TOTAL TIME REQUESTED 150 MINS WITH CHANGE-OVER CYSTOSCOPY DILATION OF BLADDER (GENERAL OR SPINAL ANESTHESIA) (Urethra) [68100 CPT(R)] INJECTION(S) SINGLE OR MULTIPLE TRIGGER POINTS 1 0R 2 MUSCLES [94097 CPT(R)] INJECTION ANESTHETIC AGENT PUDENDAL NERVE [42337 CPT(R)] LAPAROSCOPY FULGURATION/EXCISION OF LESIONS (Abdomen) [11487 CPT(R)] DIAGNOSTIC LAPAROSCOPY (Abdomen) [33084 CPT(R)] LAPAROSCOPY FULGURATION/EXCISION OF LESIONS (Abdomen) [71395 CPT(R)] Anesthesia type: General Diagnosis: Interstitial cystitis (chronic) without hematuria [N30.10] Pelvic and perineal pain [R10.2] Other chronic pain [G89.29] Patient follows with Dr. Erickson for management of IC and endometriosis with plans for a combination case with urogynecology for cystoscopy hydrodistention, pudendal nerve block and possible trigger point injections. On assessment today, patient is in NAD with no acute complaints. IC/BPS Treatment history from last OV on 09/18/23: Current treatment Previous treatment First Line [x] General Relaxation/Stress Management [x] Pain Management (Tylenol, NSAIDs) [x] Self-care/Behavioral Modification [x] General Relaxation/Stress Management [x] Pain Management (Tylenol, NSAIDs) [x] Self-care/Behavioral Modification Second Line [] Pelvic Physical Therapy [] Oral Medications [] Amitriptyline [] Cimetidine [] Hydroxyzine [] PPS ([place]miron) [] Bladder Instillations [] Frequency: aida [x] Pelvic Physical Therapy [ (more content not included)... [facility] 12-02-2023 Note Comprehensive Pre Javier rgical History and Physical ? Name: Poncho Case : 2000 (Age-23 y.o.) Date of Service: Pt seen/examined on 12/02/2023 Procedure Information Date/Time: 12/08/23 1300 Procedures: PELVIC EXAMINATION UNDER ANESTHESIA, CYSTOSCOPY WITH HYDRODISTENTION, TRIGGER POINT INJECTIONS, PUDENDAL NERVE BLOCK, DIAGNOSTIC LAPAROSCOPY, LAPAROSCOPIC EXCISION OF ENDOMETRIOSIS - TOTAL TIME REQUESTED 150 MINS WITH CHANGE-OVER CYSTOSCOPY DILATION OF BLADDER (GENERAL OR SPINAL ANESTHESIA) (Urethra) INJECTION(S) SINGLE OR MULTIPLE TRIGGER POINTS 1 0R 2 MUSCLES INJECTION ANESTHETIC AGENT PUDENDAL NERVE LAPAROSCOPY FULGURATION/EXCISION OF LESIONS (Abdomen) DIAGNOSTIC LAPAROSCOPY (Abdomen) LAPAROSCOPY FULGURATION/EXCISION OF LESIONS (Abdomen) Location: [facility] OR [address] [place] [address] Operating Room Surgeons: Lorenza Erickson DO; Sharonda Molina DO Chief Complaint: Interstitial cystitis (chronic) without hematuria [N30.10] Pelvic and perineal pain [R10.2] Other chronic pain [G89.29] ASSESSMENT/PLAN: Patient is considered low risk for this intermediate level 1 risk procedure/surgery (PELVIC EXAMINATION UNDER ANESTHESIA, CYSTOSCOPY WITH HYDRODISTENTION, TRIGGER POINT INJECTIONS, PUDENDAL NERVE BLOCK, DIAGNOSTIC LAPAROSCOPY, LAPAROSCOPIC EXCISION OF ENDOMETRIOSIS - TOTAL TIME REQUESTED 150 MINS WITH CHANGE-OVER CYSTOSCOPY DILATION OF BLADDER (GENERAL OR SPINAL ANESTHESIA) (Urethra) INJECTION(S) SINGLE OR MULTIPLE TRIGGER POINTS 1 0R 2 MUSCLES INJECTION ANESTHETIC AGENT PUDENDAL NERVE LAPAROSCOPY FULGURATION/EXCISION OF LESIONS (Abdomen) DIAGNOSTIC LAPAROSCOPY (Abdomen) LAPAROSCOPY FULGURATION/EXCISION OF LESIONS (Abdomen)) with no reducible risk factors. Based on the above evaluation, the benefits of the planned procedure likely exceed the risks. 1) Interstitial cystitis (chronic) without hematuria [N30.10] Pelvic and perineal pain [R10.2] Other chronic pain [G89.29] - Managed per surgery - Anesthesia Lab Protocol Orders 2) Anemia - source - pernicious -Resume b12 supplementation - has required a blood transfusion - No - H&H pending Yes Lab Results Component Value Date WBC 10.5 08/09/2022 HGB 11.6 (L) 08/09/2022 MCV 96.8 08/09/2022 3) Difficult IV access/stick -Per pt. H&H drawn today in PAT. Visit Type: Pre-Admission Testing Visit Labs Ordered: YES - PER PAT PROTOCOL Sleep Referral Ordered: NO - NEGATIVE SCREEN PER SLEEP REFERRAL PROTOCOL Total time spent (which include face to face and non face to face encounters) : 30 minutes Toxic drug monitoring/narrow therapeutic index drug monitoring :no # Drug name : NA # Route administered : NA # Method of monitoring : NA PAT Protocol referenced includes: 1. Anesthesia Lab Protocol Orders 2. Perioperative Cardiovascular Risk Assessment 3. Anesthesia Assessment 4. Pain Assessment and Acute Pain Service Consult (if appropriate) 5. Medical Clearance/Consult from Internal Medicine ([facility]) 6. Shower/Wash Order (for designated surgeries) 7. [facility] Screen and Sleep Clinic Referral (if appropriate) History Of Present Illness: Case: [id number] Date/Time: 12/08/23 1300 Procedures: PELVIC EXAMINATION UNDER ANESTHESIA, CYSTOSCOPY WITH HYDRODISTENTION, TRIGGER POINT INJECTIONS, PUDENDAL NERVE BLOCK, DIAGNOSTIC LAPAROSCOPY, LAPAROSCOPIC EXCISION OF ENDOMETRIOSIS [88991 CPT(R)] - TOTAL TIME REQUESTED 150 MINS WITH CHANGE-OVER CYSTOSCOPY DILATION OF BLADDER (GENERAL OR SPINAL ANESTHESIA) (Urethra) [93563 CPT(R)] INJECTION(S) SINGLE OR MULTIPLE TRIGGER POINTS 1 0R 2 MUSCLES [70406 CPT(R)] INJECTION ANESTHETIC AGENT PUDENDAL NERVE [05470 CPT(R)] LAPAROSCOPY FULGURATION/EXCISION OF LESIONS (Abdomen) [22375 CPT(R)] DIAGNOSTIC LAPAROSCOPY (Abdomen) [75083 CPT(R)] LAPAROSCOPY FULGURATION/EXCISION OF LESIONS (Abdomen) [18672 CPT(R)] Anesthesia type: General Diagnosis: Interstitial cystitis (chronic) without hematuria [N30.10] Pelvic and perineal pain [R10.2] Other chronic pain [G89.29] Patient follows with Dr. Erickson for management of IC and endometriosis with plans for a combination case with urogynecology for cystoscopy hydrodistention, pudendal nerve block and possible trigger point injections. On assessment today, patient is in NAD with no acute complaints. IC/BPS Treatment history from last OV on 09/18/23: Current treatment Previous treatment First Line [x] General Relaxation/Stress Management [x] Pain Management (Tylenol, NSAIDs) [x] Self-care/Behavioral Modification [x] General Relaxation/Stress Management [x] Pain Management (Tylenol, NSAIDs) [x] Self-care/Behavioral Modification Second Line [] Pelvic Physical Therapy [] Oral Medications [] Amitriptyline [] Cimetidine [] Hydroxyzine [] PPS (Elmiron) [] Bladder Instillations [] Frequency: aida [x] Pelvic Physical Therapy [ (more content not included)... [facility] 09-25-2023 History of Presen t illness Narrative Images from the original note were not included. Poncho Case 09/25/2023 23 y.o. Chief Complaint Patient presents with Follow-up Patient was identified and seen today via Telehealth by agreement and consent. I used the following Telehealth technology: Audio and video capabilities. Patient location: Patient Location: Home. This patient encounter is appropriate and reasonable under the circumstances: transportation issues . The patient has been advised of the potential risks and limitations of this mode of treatment (including but not limited to the absence of in-person examination) and has agreed to be treated in a remote fashion in spite of them. Any and all of the patient's/patient's family's questions on this issue have been answered and I have made no promises or guarantees to the patient. The patient has also been advised to contact this office for worsening conditions or problems, and seek emergency medical treatment and/or call 911 if the patient deems either necessary. The patient stated that they are currently in the [facility]. If the patient is a minor, permission has been obtained by the parent or guardian for the patient to receive medical care at this visit. No LMP recorded. Patient has had an injection. Primary CarePhysician: GARY SALVADOR HPI: Poncho Case is a 23 y.o. female presents for follow-up and surgical consent. Patient previously seen 08/21 as follow-up for concern of endometriosis. At that time, patient endorsed 2 months of bleeding while on Depo-Provera, intermittent spotting. Patient stated she continued to have right lower quadrant pain as well managing with Tylenol and ibuprofen, but does not completely alleviate it. Patient does endorse dyspareunia, primarily with deep penetration. States that this is similar to her prior episode of endometriosis while on Depo. Patient is planned for combination case with urogynecology for cystoscopy hydrodistention, pudendal nerve block and possible trigger point injections. Patient has previously undergone diagnostic laparoscopy with excision of endometriosis. Was scheduled for diagnostic laparoscopy last year, but was found to be on the day of surgery. Regarding her current pain, rates it a constant slight stabbing on her right side. No real triggers. Patient states that on ultrasound in [place] that revealed bowel moving with her right ovary. This was ~ 2 years ago. Patient is 9 months from a vaginal delivery. Patient is not currently . Surgically, patient had a Lap Appy and Dx Lap in 2019 for endometriosis. Review of Systems: Review of Systems Constitutional: Negative for chills and fever. Respiratory: Negative for shortness of breath. Cardiovascular: Negative for chest pain. Gastrointestinal: Positive for abdominal pain. Negative for nausea and vomiting. Genitourinary: Positive for pelvic pain. Negative for menstrual problem, vaginal bleeding and vaginal pain. Physical Exam: There were no vitals taken for this visit. Physical Exam Vitals reviewed. Constitutional: General: She is not in acute distress. Appearance: Normal appearance. She is normal weight. She is not ill-appearing, toxic-appearing or diaphoretic. Eyes: Extraocular Movements: Extraocular movements intact. Pulmonary: Effort: Pulmonary effort is normal. No respiratory distress. Musculoskeletal: General: No swelling or deformity. Normal range of motion. Cervical back: Normal range of motion. Neurological: General: No focal deficit present. Mental Status: She is alert and oriented to person, place, and time. Psychiatric: Mood and Affect: Mood normal. Behavior: Behavior normal. Thought Content: Thought content normal. Judgment: Judgment normal. RESULTS AND PREVIOUS TREATMENTS: - See HPI. ASSESSMENT & PLAN 1. Chronic pelvic pain in female - Most recent depo shot was 09/07. Continues to have pain while on Depo. Has not been having periods/spotting for the past 2 months. - Previously scheduled for diagnostic laparoscopy, resection of endometriosis last year. Cancelled due to . - States her current pain is similar to what she was experiencing prior to her previous excision. Always right sided pain. - Today we specifically discussed resection of endometriosis and laparoscopy. We reviewed the procedure in depth and the required steps. We discussed that this may or may not yield a definitive diagnosis and patient may still have pain after the procedure as well as potential for increased pain from the procedure. We reviewed the techniques and thoroughly discussed excision vs. fulguration. Excision and fulguration may be equal treatments for stage I/II endometriosis while excision is likely better for stage III/IV. Patient understands my surgical preference is for excision regardless of stage. We discussed possibility of encountering rectovaginal endometriosis and more in depth resection which could result in vaginal or bowel resection, possible need for intraoperative consultation to other specialties. We also reviewed possible excision of endometrioma and chance of decreased ovarian reserve. We discussed recommendations for post operative suppression. The patient was allowed to freely ask questions, expressed a good understanding of all of the above risks, understood and declined alternatives to surgical management and wishes to proceed with the procedure. We discussed the risks of surgery including, but not limited to: [x] Bleeding, infection, visceral or major vascular injury, transfusion, additional surgery related to the complication [x] Serious injury necessitating ostomy creation creation for bowel or urinary tract [x] Possibility of delayed surgical injury (such as in cases of bowel or bladder), prolonged catheterization [x] Anesthetic complication, cardiovascular risks including VTE, neurologic compromise/neuropathy [x] Unexpected findings which may require different or additional procedures [x] Failure of the procedure to achieve the desired result [x] For endoscopic procedures, the possibility of conversion to open surgery, need for re-operation or rehospitalization [x] The remote possibility of [x] Pain control and risks of narcotic medications [x] Recovery period and post-op expectations All questions asked and answered. Patient is able to correctly repeat the pertinent facts and indicates understanding of these issues and agrees with the plan. Plan: Diagnostic Laparoscopy, Excision of Endometriosis (Combo with Dr. Erickson) Follow up in about 6 weeks (around 11/06/2023) for Post Op Visit. documented in this encounter [facility] 09-18-2023 History of Presen t illness Narrative Reason for Visit: Interstitial Cystitis/Painful Bladder Syndrome Poncho Case is a 23 y.o. female presenting for follow up of Interstitial Cystitis/Painful Bladder Syndrome. She was planning for a joint surgery with Dr. Isabel and myself last yeat but had a positive test on DOS. She delivered a healthy baby boy last December. Feels her bladder and pelvic pain symptoms are recurring/worsening and she is ready to pursue surgical intervention HPI: IC/BPS Treatment history: Current treatment Previous treatment First Line [x] General Relaxation/Stress Management [x] Pain Management (Tylenol, NSAIDs) [x] Self-care/Behavioral Modification [x] General Relaxation/Stress Management [x] Pain Management (Tylenol, NSAIDs) [x] Self-care/Behavioral Modification Second Line [] Pelvic Physical Therapy [] Oral Medications [] Amitriptyline [] Cimetidine [] Hydroxyzine [] PPS (Elmiron) [] Bladder Instillations [] Frequency: aida [x] Pelvic Physical Therapy [] Oral Medications [] Amitriptyline [] Cimetidine [] Hydroxyzine [] PPS (Elmiron) [] Bladder Instillations [] Frequency: NA Third Line [] Cystoscopy with Hydrodistention Dates: NA [] Treatment of Hunner's Lesions Type: NA [] Cystoscopy with Hydrodistention Dates: NA [] Treatment of Hunner's Lesions Type: NA Fourth Line [] Intradetrusor Botox Dates: NA [] Neuromodulation Dates: NA [] Intradetrusor Botox Dates: NA [] Neuromodulation Dates: NA Fifth Line [] Cyclosporine A [] Cyclosporine A Sixth Line [] Diversion with or without cystectomy [] Substitution cystoplasty [] Diversion with or without cystectomy [] Substitution cystoplasty Patient Active Problem List Diagnosis Rubella non-immune status, antepartum care, antepartum Maternal obesity, antepartum Bladder pain Abnormal uterine bleeding (AUB) Endometriosis Chronic pelvic pain in female Abdominal pain affecting Current Outpatient Medications Medication Sig Dispense Refill amoxicillin-clavulanate (Augmentin) 875-125 MG tablet cyanocobalamin (Vitamin B-12) 1000 MCG tablet Take 1,000 mcg by mouth daily. medroxyPROGESTERone (Depo-Provera) 150 MG/ML suspension prefilled syringe injection syringe prazosin (Minipress) 1 MG capsule TAKE 1 TO 2 CAPSULES BY MOUTH AT BEDTIME NEEDED TO PREVENT MIGRAINE No current facility-administered medications for this visit. Review of Systems All other systems reviewed and are negative. EXAM BP 120/75 Pulse (!) 112 Ht 5' 4 (1.626 m) Wt 211 lb 12.8 oz (96.1 kg) No BMI 36.36 kg/m Physical Exam Constitutional: She is oriented to person, place, and time. NAD Cardiovascular: Intact distal pulses Pulmonary/Chest: No respiratory distress. Abdominal: Nonsidstended Skin: Skin is warm and dry. No rash noted. She is not diaphoretic. No erythema. No pallor. Neuro/Psychiatric: She has a normal mood and affect. Her behavior is normal. Judgment and thought content normal. IMPRESSION/PLAN: 1. IC (interstitial cystitis) Interstitial Cystitis/Bladder Pain Syndrome - AUA algorithm reviewed with the patient. - first line: continue lifestyle/behavioral interventions. No known triggers that she's aware of yet - second line: was referred to pelvic PT in the remote past but was then told PT would not help her; declines instillations for now because she is planning for surgery with Dr. Molina and would prefer concomitant cysto/hydro - third line: would like to pursue cysto/hydro at time of surgery with Dr. Molina as previously discussed. We also discussed the remote possibility of bladder rupture, as well as potential that symptoms will flare or not improve in addition to similar risks for the procedure she has discussed with Dr. Molina. Will plan for pudendal nerve block and possible trigger point injections at the time of surgery. - fourth line: NA - fifth line: NA - sixth line: NA Time based Evaluation and Management: I spent total time of 30 minutes reviewing previous notes, test results, and face to face with the patient discussing the diagnosis and importance of compliance with the treatment plan as well as documenting on the day of the visit. Time on the day of service includes: Preparing to see the patient (eg. Review of the medical record, such as tests) Obtaining and/or reviewing separately obtained history Ordering prescription medications, test and procedures Counseling/educating the patient/family/caregiver Documenting clinical information in the patients electronic record documented in this encounter [facility] 09-18-2023 Instructions Lorenza Erickson DO - 09/18/2023 2:15 PM EDT Interstitial Cystitis (IC; also called Painful Bladder Syndrome) is a chronic inflammation of the bladder that causes symptoms such as urinary urgency & frequency, bladder pain & pressure, painful urination, pelvic pain, or pain with intercourse. Women often experience increasing pain as their bladder fills that is temporarily relieved with urination- then the pain and pressure return as the bladder fills. Symptoms can be triggered by stress, certain foods and beverages (acidic foods like tomatoes, spicy foods, caffeine, alcohol), and vaginal intercourse. IC is five times more common in women than men. IC is part of a spectrum of pain disorders and many women with IC are also diagnosed with vulvodynia (vulvar pain), irritable bowel syndrome (IBS), fibromyalgia, or chronic pelvic pain. There are many theories about what causes IC. The most common theory is that there is a defect in the protective lining of the bladder that allows urine to come in contact with the bladder wall. The nerve endings in the bladder wall then send pain signals to the brain. Because many women with IC also have other pain disorders, there may be abnormalities in how the body interprets and transmits pain signals. It is likely that there are many factors contributing to the development of IC. The diagnosis of IC is based on symptoms and clinical examination including voiding diary, symptom diary, and physical exam. During your exam, your provider will evaluate for areas of tenderness around your bladder and pelvic floor, measure how well you are emptying your bladder and check your urine for signs of a bladder infection. Your provider may use a catheter to place a numbing medication inside your bladder to see if your symptoms improve or resolve. Bladder instillation is both a diagnostic test and treatment for IC. If the diagnosis of IC is unclear, your provider may recommend cystoscopy with bladder distension for further evaluation. Treatment options for IC include: Pelvic floor physical therapy - Treatment of muscle pain and dysfunction can improve pelvic pain symptoms. Diet - Eliminating foods that trigger symptoms is an important step: acidic and spicy foods, caffeine, alcohol, artificial sweeteners. Medications - Acetaminophen or Non-steroidal anti-inflammatory medications; Some women also experience improvement from taking cimetidine (Tagamet) or hydroxyzine (Atarax, Vistaril) which decrease inflammation. Bladder instillations - Medications can be instilled directly into the bladder. Lidocaine numbs the irritated nerve endings and heparin helps to decrease inflammation and replenish the protective layer of the bladder. Most women can learn to perform bladder instillations themselves. Cystoscopy with hydrodistension - This procedure decreases symptoms in about 50% of women but the effects often last for only 1-2 months. Botox Injections in the bladder - Injecting Botox into the wall of the bladder may decrease urinary frequency and pain symptoms by partially paralyzing the bladder muscle. Side effects include bladder infections and urinary retention. If you choose this treatment option, you must be willing and able to self-catheterize to empty your bladder in case you do get urinary retention. Sacroneuromodulation (Interstim) - Placement of a stimulator in the lower spine may improve symptoms of urinary urgency & frequency but may not help with pain. Resources for IC info & support: IC Association http://www.ichelp.org/ IC Network http://www.ic-network.com/ Pre-Op Instructions Planned procedure: Pelvic exam under anesthesia, cystoscopy with hydrodistention, trigger point injections, pudendal nerve block You have received a copy of the Preparing for Surgery Patient Information Sheet. You may receive a call from the anesthesia team to review any special instructions they have for you. Unless otherwise advised by the anesthesia team before your surgery, do not eat or drink anything after midnight the night before surgery. Do not use any chewing gum, hard candy, or mints. Any medications taken the morning of surgery should be taken with small amounts of water. Discontinue any aspirin or non-steroidal anti-inflammatory medications 7 days prior to surgery. Discontinue any herbal supplements, fish oil, or vitamin E 14 days prior to surgery. Anesthesia and pain medication is often constipating. We recommend stool softeners twice a day and daily fiber intake after surgery. If no bowel movement by the 3rd day after your surgery you can try a dulcolax rectal suppository. If this is not successful, you may add Miralax laxative daily per package instructions. If no BM by day 4 following your surgery, call our office. Call office with any severe pain not controlled by medication, nausea, vomiting, or bleeding heavier than a light to medium menstrual period or unusual dizziness following surgery. ANSWERING SERVICE will slate picker after hours on our normal office line. documented in this encounter [facility] 08-21-2023 History of Presen t illness Narrative Images from the original note were not included. Poncho Case 08/21/2023 23 y.o. Chief Complaint Patient presents with Follow-up Follow up endometriosis;AUB;CPP- was scheduled for surgery last year but got - c/o persistent right sided pelvic pain No LMP recorded. Primary CarePhysician: GARY SALVADOR HPI: Poncho Case is a 23 y.o. female No obstetric history on file. presents for evaluation and follow-up following her . Patient was previously seen by Dr. Isabel for concern for endometriosis. Prior documentation reviewed. Previously tried percocet and ibuprofen, tramadol Pain sometimes with bowel movements - could have potential spot of endo or scar tissue connecting bowel and R ovary Pain if not going right away for bladder Sharp pain, radiates into low back and down legs Constant dull pain but has episodes where it is worse Depo, OCP - would like to not be on OCP, wants kids Patient has previously had a diagnostic laparoscopy in 2018 with a biopsy of the right ovarian fossa revealing endometriosis on pathology. Patient had approximately 6 months of relief following this. She was then trialed on Depo-Provera followed by [facility] with no improvement of her symptoms. Patient was previously scheduled for diagnostic laparoscopy, resection of endometriosis, hysteroscopy D&C, chromopertubation. This surgery was canceled due to a positive test on the day of surgery. Patient is now 8 months status post vaginal delivery complicated by PreEwSF. Had a periurethral tear. Since delivery, patient had been pain free while on Depo Provera (started 8 weeks PP, and is still on). For the past 2 months, has been bleeding while on Depo. Has been having spotting randomly. Continues to have persistent RLQ pain. Takes Tylenol/Ibuprofen, which do not help. Pain is dull at times and manageable, but will increase and spike without any inciting factor. Pain with deep penetration. Patient states this is similar to her prior endometriosis episode while on Depo. Patient reports continued pain with urgency in urination and was previously planned for Cysto/[place]. Review of Systems: Review of Systems Constitutional: Negative for appetite change, chills and fever. Respiratory: Negative for shortness of breath. Cardiovascular: Negative for chest pain. Gastrointestinal: Positive for rectal pain. Negative for nausea and vomiting. Genitourinary: Positive for dyspareunia, pelvic pain and urgency. Negative for dysuria, menstrual problem and vaginal bleeding. Physical Exam: BP 123/89 (BP Location: Left arm, Patient Position: Sitting, BP Cuff Size: Adult) Pulse 108 Ht 5' 4 (1.626 m) Wt 210 lb (95.3 kg) BMI 36.05 kg/m Physical Exam Vitals reviewed. Constitutional: General: She is not in acute distress. Appearance: Normal appearance. She is normal weight. She is not ill-appearing, toxic-appearing or diaphoretic. HENT: Head: Normocephalic and atraumatic. Eyes: Extraocular Movements: Extraocular movements intact. Cardiovascular: Pulses: Normal pulses. Pulmonary: Effort: Pulmonary effort is normal. No respiratory distress. Abdominal: General: There is no distension. Palpations: Abdomen is soft. Tenderness: There is abdominal tenderness. There is no guarding or rebound. Genitourinary: General: Normal vulva. Vagina: Normal. Cervix: Normal. Uterus: Normal. Adnexa: Left adnexa normal. Right: Tenderness present. Musculoskeletal: General: No swelling or deformity. Normal range of motion. Cervical back: Normal range of motion. Skin: General: Skin is warm and dry. Neurological: General: No focal deficit present. Mental Status: She is alert and oriented to person, place, and time. Psychiatric: Mood and Affect: Mood normal. Behavior: Behavior normal. Thought Content: Thought content normal. Judgment: Judgment normal. RESULTS AND PREVIOUS TREATMENTS: - See HPI ASSESSMENT & PLAN 1. Chronic pelvic pain in female -Patient seen and examined. Patient has extensive history of endometriosis with a history of diagnostic laparoscopy and resection of endometriosis. -Patient was previously scheduled for diagnostic laparoscopy last year, however found out she was on the day of surgery. -Patient is currently on Depo-Provera, continues to have bleeding through that at this time, and states her pain feels similar to her prior endometriosis flare. -On examination, patient is mild to moderately tender to palpation in the right lower quadrant on abdominal exam as well as bimanual exam. Patient does have tenderness to palpation over the right obturator internus, but states that she has previously done pelvic floor physical therapy for this and it was ineffective. -We will obtain transvaginal ultrasound for evaluation of chronic pelvic pain. Pending this, patient will likely need diagnostic laparoscopy with resection of endometriosis. -Patient was previously scheduled for cystoscopy with hydrodistention with Dr. Erickson for interstitial cystitis. Will refer back to urogynecology for evaluation and possible combination case. - US pelvis transvaginal; Future 2. IC (interstitial cystitis) - As above. - Ambulatory referral to Urogynecology; Future Follow up in about 3 weeks (around 09/11/2023) for VV Surgery Consent. documented in this encounter [facility] 08-09-2022 Hospital Discharg e instructions Luciano Shields MD - 08/09/2022 6:20 PM EDT Please return to the Emergency Department immediately for new or worsening symptoms or any new concerns. Please complete course of antibiotics as prescribed. You may take Tylenol according to package instructions as needed for discomfort. Please follow-up with OB in the next 2 to 3 days, follow-up is required for further evaluation and management. The following attachments cannot be sent through Care Everywhere.UTI (Urinary Tract Infection): Female ([place]an): Abdominal Pain ([place])documented in this encounter [facility] Work Phone: 05-03-2022 History of Presen t illness Narrative Surgery cancelled per Dr Isabel. In room. Informed of + preg test. PNV ordered to pharmacy. LMP March 22. Likely implantation bleeding with spotting April 05-. No pelvic pain, no VB. No abd pain. Ectopic precautions given. director trading referral given and message sent to OB for new OB intake appt. Called critical care lab about serum qualitative test results and geophysical laboratory chief stated that machine got an error and will have to do it manually. Updated patient that test will take a little longer. CREDIT UNION MANAGER into to talk to patient about urine test being positive and that we needed to verify urine results with blood work test. Prepping patient as if she were going to surgery until test results come back. Performed urine test twice with both positive for . Notified anesthesia team. Called into OR with Dr Isabel in procedure in OR and ordered qualitative serum HCG. documented in this encounter [facility] Work Phone: 05-03-2022 [facility] john Nola Malik MD - 05/03/2022 Images from the original note were not included. Learning About Your Care Instructions Your health in the early weeks of your is particularly important for your baby's health. Take good care of yourself. Anything you do that harms yourbody can also harm your baby. Make sure to go to all of your doctor appointments. Regular checkups will helpkeep you and your baby healthy. How can you care for yourself at home? Diet Eat a balanced diet. Make sure your diet includes plenty of beans, peas, and leafy green vegetables. Do not skip meals or go for many hours without eating. If you are nauseated, try to eat a small, healthy snack every 2 to 3 hours. Do not eat fish that has a high level of mercury, such as shark, swordfish, or mackerel. Do not eat more than one can of tuna each week. Drink plenty of fluids. If you have kidney, heart, or liver disease and have to limit fluids, talk with your doctor before you increase the amount of fluids you drink. Cut down on caffeine, such as coffee, tea, and cola. Do not drink alcohol, such as beer, wine, or hard liquor. Take a multivitamin that contains at least 400 micrograms (mcg) of folic acid to help prevent defects. Fortified cereal and whole wheat bread are good additional sources of folic acid. Increase the calcium in your diet. Try to drink a quart of skim milk each day. You may also take calcium supplements and choose foods such as cheese and yogurt. Lifestyle Make sure you go to your follow-up appointments. Get plenty of rest. You may be unusually tired while you are . Get at least 30 minutes of exercise on most days of the week. Walking is a good choice. If you have not exercised in the past, start out slowly. Take several short walks each day. Do not smoke. If you need help quitting, talk to your doctor about stop-smoking programs. These can increase your chances of quitting for good. Do not touch cat feces or litter boxes. Also, wash your hands after you handle raw meat, and fully cook all meat before you eat it. Wear gloves when you work in the yard or garden, and wash your hands well when you are done. Cat feces, raw or undercooked meat, and contaminated dirt can cause an infection that may harm your baby or lead to a miscarriage. Avoid things that can make your body too hot and may be harmful to your baby, such as a hot tub or sauna. Or talk with your doctor before doing anything that raises your body temperature. Your doctor can tell you if it's safe. Avoid chemical fumes, paint fumes, or poisons. Do not use illegal drugs, marijuana, or alcohol. Medicines Review all of your medicines with your doctor. Some of your routine medicines may need to be changed to protect your baby. Use acetaminophen (Tylenol) to relieve minor problems, such as a mild headache or backache or a mild fever with cold symptoms. Do not use nonsteroidal anti-inflammatory drugs (NSAIDs), such as ibuprofen (Advil, Motrin) or naproxen (Aleve), unless your doctor says it is okay. Do not take two or more pain medicines at the same time unless the doctor told you to. Many pain medicines have acetaminophen, which is Tylenol. Too much acetaminophen (Tylenol) can be harmful. Take your medicines exactly as prescribed. Call your doctor if you think you are having a problem with your medicine. To manage morning sickness If you feel sick when you first wake up, try eating a small snack (such as crackers) before you get out of bed. Allow some time to digest the snack, and then get out of bed slowly. Do not skip meals or go for long periods without eating. An empty stomach can make nausea worse. Eat small, frequent meals instead of three large meals each day. Drink plenty of fluids. Eat foods that are high in protein but low in fat. If you are taking iron supplements, ask your doctor if they are necessary. Iron can make nausea worse. Avoid any smells, such as coffee, that make you feel sick. Get lots of rest. Morning sickness may be worse when you are tired. Follow-up care is a alvarez part of your treatment and safety. Be sure to make and go to all appointments, and call your doctor if you are having problems. It's also a good idea to know your test results and keep alist of the medicines you take. Where can you learn more? Go to [email or web address] and sign in to your [employer] account. Enter E868 in the Search Health Information box to learn more about Learning About . If you do not have an account, please click on the Sign Up Now link. Current as of: May 16, 2021 Content Version: 13.2 [employer]. Care instructions adapted under license by [employer]. If you have questions about a medical condition or this instruction, always ask your healthcare professional. [employer] disclaims any warranty or liability for your use of this information. documented in this encounter [facility] Work Phone: documented in this encounter [facility] Work Phone: Evaluation note* Diagnosis Abdominal pain, unspecified abdominal location- Primary Urinary tract infection without hematuria, site unspecified [facility] Work Phone: Evaluation note* Diagnosis Chronic pelvic pain in female- Primary Unspecified symptom associated with female genital organs IC (interstitial cystitis) Chronic interstitial cystitis [facility] Diagnosis Chronic pelvic pain in female Unspecified symptom associated with female genital organs [facility] Diagnosis IC (interstitial cystitis) Chronic interstitial cystitis [facility] Diagnosis Chronic pelvic pain in female- Primary Unspecified symptom associated with female genital organs [facility] Diagnosis Acute postoperative pain- Primary Other acute postoperative pain Interstitial cystitis (chronic) without hematuria Pelvic and perineal pain Other chronic pain [facility] Diagnosis Chronic pelvic pain in female- Primary Unspecified symptom associated with female genital organs IC (interstitial cystitis) Chronic interstitial cystitis Postoperative state Other postprocedural status [facility] Attachments The following attachments cannot be sent through Care Everywhere. * Laparoscopy ([place]) * Cystoscopy Discharge Instructions ([place]) [facility] Consultation (Routine) - Authorized Specialty Diagnoses / Procedures Referred By Farrah willard Referred To Contact Urogynecology Diagnoses IC (interstitial cystitis) Procedures MT OFFICE/OUTPATIENT NEW HIGH MDM 60-74 MINUTES Sharonda Molina DO [address] [place] [address] Lorenza Erickson DO [address] [place] [address] Referral ID Status Reason Start Date Expiration Date Visits Requested Visits Authorized [id number] Authorized Specialty Services Required 08/21/2023 08/20/2024 1 1 [employer] [facility] Summary Purpose Family History No Family History Records FoundNo Family History Records FoundNo Family History Records FoundNo Family History Records FoundNo Family History Records Found Advance Directives No Advanced Directives Records FoundLatest Code Status on File Code Status Date Activated Date Inactivated Comments Full Code 05/03/2022 12:20 PM Full Code 05/03/2022 12:20 PM 05/03/2022 12:20 PM Latest Code Status on File Code Status Date Activated Date Inactivated Comments Full Code 05/03/2022 12:20 PM 05/03/2022 4:49 PM Additional Source Comments INFORMATION SOURCE (unrecogn ized section and content) DATE CREATED AUTHOR AUTHOR'S ORGANIZ ATION 07/26/2020 [facility] ([place]) DATE CREATED AUTHOR AUTHOR'S ORGANIZ ATION 05/06/2022 [employer] DATE CREATED AUTHOR AUTHOR'S ORGANIZ ATION 08/28/2022 [employer] DATE CREATED AUTHOR AUTHOR'S ORGANIZ ATION 12/23/2023 [employer] [facility] Ordered Prescriptions (unrec ognized section and content) Prescription Sig Dispensed Refills Start Date End Da te cephALEXin (KEFLEX) 500 MG capsule Take 1 capsule by mouth 2 times daily for 7 days 14 capsule 0 08/09/2022 08/16/2022 Scheduled Active and Recently Administ ered Medications (unrecognized section and content) Continuous Medication Order 05/01/2022 05/02/2022 05/03/2022 0.9 % sodium chloride infusion IntraVENous, at 125 mL/hr, CONTINUOUS, Starting on Fri05/03/22 at 1245, Pre-op (day of surgery) 1245 (Due) lactated ringers infusion IntraVENous, at 50 mL/hr, CONTINUOUS, Starting on Fri05/03/22 at 1245, Upon admission to sameday - please start iv if patient does not have iv access. Use 500ml NS for patients on dialysis., Pre-op (day of surgery) 1245 (Due) PRN Medication Order 05/01/2022 05/02/2022 05/03/2022 0.9 % sodium chloride infusion IntraVENous, at 5-250 mL/hr, PRN, if patient receiving piggyback infusions and maintenance fluids are not ordered OR KVO fluids to protect IV site / prevent frequent line interruptions/ long duration, Starting on Fri05/03/22 at 1220, For piggyback infusion, administer at same rate as piggyback for a total of 25 mL. Enter 25 mL into dose field and piggyback rate into rate field of order. If piggyback is infusing at a rate less than 100 mL/hr, enter 25 mL into dose field and 100 mL/hr into rate field of order. For KVO fluids, enter rate of 20 mL/hr or less into rate field of order., Pre-op (day of surgery) ALPRAZolam (NIRAVAM) dissolvable tablet 0.25 mg 0.25 mg, Oral, PRN, Starting on Fri05/03/22 at 1220, Until Discontinued, Anxiety, Pre-op (day of surgery) lidocaine PF 1 % injection 1 mL 1 mL, IntraDERmal, ONCE PRN, 1 dose, Starting on Fri05/03/22 at 1220, Until Fri05/03/22 at 2359, IV start, Pre-op (day of surgery) sodium chloride flush 0.9 % injection 5-40 mL 5-40 mL, IntraVENous, PRN, Starting on Fri05/03/22 at 1220, Until Discontinued, Line Care, After every IV line use, For Line Patency: Peripheral IV = 5 mL; Midline or Central Line = 10 mL/lumen. If following IV push medication, administer flush at same rate as the IV push. Flush volume is determined by type of infusion therapy being given. For non-viscous solutions use: Peripheral IV = 5 mL Midline or Central Line = 10 mL/lumen For viscous solutions (i.e. blood components, parenteral nutrition, contrast media, or after obtaining blood sample) use: Peripheral IV = 10 mL Midline or Central Line = 20 mL/lumen, Pre-op (day of surgery) Scheduled Medication Order 08/07/2022 08/08/2022 08/09/2022 acetaminophen (TYLENOL) tablet 1,000 mg (COMPLETED) 1,000 mg, Oral, ONCE, 1 dose, On Fri08/09/22 at 1501, Maximum dose of acetaminophen is 4000 mg from all sources in 24 hours. 1522 (Given - Provid er: Araseli Gifford RN) cephALEXin (KEFLEX) capsule 500 mg (COMPLETED) 500 mg, Oral, ONCE, 1 dose, On Fri08/09/22 at 1747, Antimicrobial Indications: Urinary Tract Infection 1803 (Given - Provid er: Araseli Gifford RN) Scheduled Medication Order 12/06/2023 12/07/2023 12/08/2023 acetaminophen (Tylenol) tablet 1,000 mg (COMPLETED) 1,000 mg, Oral, Once, On Fri12/08/23 at 1130, For 1 dose, Preprocedure, Maximum dose of acetaminophen is 4000 mg from all sources in 24 hours. Do not administer if patient has taken tylenol <4 hours earlier. Do not give if contraindicated ie. patient has active liver disease or cirrhosis. 1146 (Given - Provid er: Marianela Gray RN) famotidine (Pepcid) tablet 20 mg (COMPLETED) 20 mg, Oral, Once, On Fri12/08/23 at 1130, For 1 dose, Preprocedure 1146 (Given - Provid er: Marianela Gray RN) gabapentin (Neurontin) capsule 100 mg (COMPLETED) 100 mg, Oral, Once, On Fri12/08/23 at 1130, For 1 dose, Preprocedure, For Age >69 or Low GFR. 1146 (Given - Provid er: Marianela Gray RN) sodium chloride 0.9% (NS) flush 10 mL 10 mL, IntraVENous, Every 12 hours scheduled (2 times per day), First dose on Fri12/08/23 at 2100, Recovery (only) sodium chloride 0.9% (NS) flush 5-40 mL 5-40 mL, IntraVENous, Every 12 hours, First dose on Fri12/08/23 at 1130, Preprocedure, For Line Patency: Peripheral IV = 5 mL; Midline or Central Line = 10 mL/lumen. If following IV push medication, administer flush at same rate as the IV push. Flush volume is determined by type of infusion therapy being given. For non-viscous solutions use: Peripheral IV = 5 mL Midline or Central Line = 10 mL/lumen For viscous solutions (i.e. blood components, parenteral nutrition, contrast media, or after obtaining blood sample) use: Peripheral IV = 10 mL Midline or Central Line = 20 mL/lumen 1130 (Canceled Entry - Provider: Automatic Discharge Provider - Comment: Automatically canceled at discontinue of medication order) Continuous Medication Order 12/06/2023 12/07/2023 12/08/2023 lactated Ringer's (LR) infusion 50 mL/hr, IntraVENous, Continuous, Starting on Fri12/08/23 at 1130, Preprocedure, Upon admission to sameday - please start iv if patient does not have iv access. Use 500ml NS for patients on dialysis. 1148 (New Bag - Prov ider: Marianela Gray RN)1305 (Continued by Anesthesia - Provider: Nikko Kaufman CRNA)1415 (Anesthesia Volume Adjustment - Provider: Nikko Kaufman CRNA) lactated ringers infusion 125 mL/hr, IntraVENous, Continuous, Starting on Fri12/08/23 at 1445, Recovery (only) 1445 (Canceled Entry - Provider: Automatic Discharge Provider - Comment: Automatically canceled at discontinue of medication order) PRN Medication Order 12/06/2023 12/07/2023 12/08/2023 ALPRAZolam (Xanax) disintegrating tablet 0.25 mg (COMPLETED) 0.25 mg, Oral, PRN, anxiety, Starting on Fri12/08/23 at 1123, For 1 dose, Preprocedure, Using dry hands, place tablet on top of tongue and allow to disintegrate. Administration with water is not necessary. 1146 (Given - Provid er: Marianela Gray RN) bupivacaine-EPINEPHrine PF (Marcaine w/EPI) 0.25% -[id number] injection (CANCELED) As needed, Starting on Fri12/08/23 at 1329, Intraprocedure 1329 (Given - Provid er: Lorenza Erickson, DO - Comment: ON FIELD) diphenhydrAMINE (BENADryl) injection 12.5 mg 12.5 mg, IntraVENous, Once PRN, itching, Starting on Fri12/08/23 at 1438, For 1 dose, Recovery (only) fentaNYL (Sublimaze) injection 25 mcg 25 mcg, IntraVENous, Every 5 min PRN, moderate pain (4-6), Starting on Fri12/08/23 at 1438, For 3 doses, Recovery (only), Phase I and Phase II- Initial therapy for moderate pain (4-6). Restricted to a 90 minute time frame starting when the patient can verbally state their pain score. If after 2 doses the pain score does not decrease by more than one point, then call the provider. If oral meds are utilized, do not return to initial therapy medications. 1459 (Given - Provid er: Kristi Molina RN) fentaNYL (Sublimaze) injection 50 mcg 50 mcg, IntraVENous, Every 5 min PRN, severe pain (7-10), Starting on Fri12/08/23 at 1438, For 3 doses, Recovery (only), Phase I and Phase II- Initial therapy for severe pain (7-10). Restricted to a 90 minute time frame starting when the patient can verbally state their pain score. If after 2 doses the pain score does not decrease by more than one point, then call the provider. If oral meds are utilized, do not return to initial therapy medications. 1447 (Given - Provid er: Kristi Molina RN) hydrALAZINE (Apresoline) injection 5 mg(Linked Group 1) 5 mg, IntraVENous, Every 15 min PRN, high blood pressure, for SBP greater than 160 mmHg for 2 consecutive measurements taken from different sites, Starting on Fri12/08/23 at 1438, For 2 doses, Recovery (only), PRN for SBP > 160 for 2 consecutive measurements, and if one of the following conditions is met: 1) If IV labetolol is ineffective. 2) If HR is under 60. 3) If patient has heart block, COPD or asthma. If both labetalol and hydralazine ineffective, notify anesthesia provider. labetalol (Normodyne,Trandate) injection 5 mg(Linked Group 1) 5 mg, IntraVENous, Every 10 min PRN, high blood pressure, for SBP greater than 160 mmHg for 2 consecutive measurements taken from different sites., Starting on Fri12/08/23 at 1438, For 2 doses, Recovery (only), PRN for SBP >160 for 2 consecutive measurements, if HR is 60 or greater. If beta cherry is contraindicated (HR less than 60, heart block, COPD or asthma) use hydralazine IV order. ondansetron (Zofran) injection 4 mg 4 mg, IntraVENous, Once PRN, nausea, Starting on Fri12/08/23 at 1438, For 1 dose, Recovery (only), Initial antiemetic therapy. oxyCODONE (Roxicodone) immediate release tablet 5 mg (COMPLETED)(Linked Group 2) 5 mg, Oral, PRN, moderate pain (4-6), Starting on Fri12/08/23 at 1438, For 1 dose, Recovery (only), PHASE II 1516 (Given - Provid er: Conchis Jenkins RN) sodium chloride 0.9 % bolus 500 mL 500 mL, IntraVENous, at 1,000 mL/hr, Administer over 0.5 Hours, PRN, Anti-nausea, Starting on Fri12/08/23 at 1438, Recovery (only), Indications: Anti-nausea sodium chloride 0.9 % infusion 5-250 mL/hr, IntraVENous, PRN, if patient receiving piggyback infusions and maintenance fluids are not ordered OR KVO fluids to protect IV site / prevent frequent line interruptions / long duration, Starting on Fri12/08/23 at 1123, Preprocedure, For piggyback infusion, administer at same rate as piggyback for a total of 25 mL. Enter 25 mL into dose field and piggyback rate into rate field of order. If piggyback is infusing at a rate less than 100 mL/hr, enter 25 mL into dose field and 100 mL/hr into rate field of order. For KVO fluids, enter rate of 20 mL/hr or less into rate field of order. sodium chloride 0.9 % infusion 5-250 mL/hr, IntraVENous, PRN, if patient receiving piggyback infusions and maintenance fluids are not ordered OR KVO fluids to protect IV site / prevent frequent line interruptions/ long duration, Starting on Fri12/08/23 at 1438, Recovery (only), For piggyback infusion, administer at same rate as piggyback for a total of 25 mL. Enter 25 mL into dose field and piggyback rate into rate field of order. If piggyback is infusing at a rate less than 100 mL/hr, enter 25 mL into dose field and 100 mL/hr into rate field of order. For KVO fluids, enter rate of 20 mL/hr or less into rate field of order. sodium chloride 0.9 % irrigation solution (CANCELED) As needed, Starting on Fri12/08/23 at 1348, Intraprocedure 1348 (Given - Provid er: Lorenza Erickson DO) sodium chloride 0.9% (NS) flush 10 mL 10 mL, IntraVENous, PRN, line care, Starting on Fri12/08/23 at 1438, Recovery (only), After every IV line use sodium chloride 0.9% (NS) flush 5-40 mL 5-40 mL, IntraVENous, PRN, line care, After every IV line use, Starting on Fri12/08/23 at 1123, Preprocedure, For Line Patency: Peripheral IV = 5 mL; Midline or Central Line = 10 mL/lumen. If following IV push medication, administer flush at same rate as the IV push. Flush volume is determined by type of infusion therapy being given. For non-viscous solutions use: Peripheral IV = 5 mL Midline or Central Line = 10 mL/lumen For viscous solutions (i.e. blood components, parenteral nutrition, contrast media, or after obtaining blood sample) use: Peripheral IV = 10 mL Midline or Central Line = 20 mL/lumen sterile water irrigation solution (CANCELED) As needed, Starting on Fri12/08/23 at 1329, Intraprocedure 1329 (Given - Provid er: Lorenza Erickson DO) Linked Groups Order Group 1: labetalol (Normodyne,Trandate) injection 5 mgJump to med 5 mg, IntraVENous, Every 10 min PRN, high blood pressure, for SBP greater than 160 mmHg for 2 consecutive measurements taken from different sites., Starting on Fri12/08/23 at 1438, For 2 doses, Recovery (only), PRN for SBP >160 for 2 consecutive measurements, if HR is 60 or greater. If beta cherry is contraindicated (HR less than 60, heart block, COPD or asthma) use hydralazine IV order. Or hydrALAZINE (Apresoline) injection 5 mgJump to med 5 mg, IntraVENous, Every 15 min PRN, high blood pressure, for SBP greater than 160 mmHg for 2 consecutive measurements taken from different sites, Starting on Fri12/08/23 at 1438, For 2 doses, Recovery (only), PRN for SBP > 160 for 2 consecutive measurements, and if one of the following conditions is met: 1) If IV labetolol is ineffective. 2) If HR is under 60. 3) If patient has heart block, COPD or asthma. If both labetalol and hydralazine ineffective, notify anesthesia provider. Group 2: oxyCODONE (Roxicodone) immediate release tablet 5 mg (COMPLETED)Jump to med 5 mg, Oral, PRN, moderate pain (4-6), Starting on Fri12/08/23 at 1438, For 1 dose, Recovery (only), PHASE II Or oxyCODONE (Roxicodone) immediate release tablet 10 mg (COMPLETED) 10 mg, Oral, PRN, severe pain (7-10), Starting on Fri12/08/23 at 1438, For 1 dose, Recovery (only), PHASE II Care Teams (unrecognized sec tion and content) Field Sales Consultant Relationship Specialty Start Date End Date Gary Salvador [address] [facility] [address] [place] [address] PCP - General Family Medicine 02/25/22 Field Sales Consultant Relationship Specialty Start Date End Date Gary Salvador [address] [facility] [address] [place] [phone] PCP - General 02/25/22 Field Sales Consultant Relationship Specialty Start Date End Date Gary Salvador [address] [facility] [address] [place] [phone] PCP - General 02/25/22 Field Sales Consultant Relationship Specialty Start Date End Date Gary Salvador [address] [facility] [address] [place] [address] PCP - General 02/25/22 Field Sales Consultant Relationship Specialty Start Date End Date Gary Salvador [address] [facility] [address] [place] [id number] PCP - General 02/25/22 Field Sales Consultant Relationship Specialty Start Date End Date Gary Salvador [address] [facility] [address] [place] [address] PCP - General 02/25/22 Field Sales Consultant Relationship Specialty Start Date End Date Gary Salvador [address] [facility] [address] [place] [address] PCP - General 02/25/22 Reason for Visit (unrecogniz ed section and content) Reason Comments Follow-up Follow up endometrio sis;AUB;CPP- was scheduled for surgery last year but got - c/o persistent right sided pelvic pain Reason Comments Cystitis Surgical Consult Specialty Diagnoses / Procedures Referred By Farrah willard Referred To Contact Urogynecology Diagnoses IC (interstitial cystitis) Procedures MT OFFICE/OUTPATIENT [facility] 60-74 MINUTES Sharonda Molina, DO [address] [facility]. 6th [place] [address] Lorenza Erickson DO [address] [place] [address] Referral ID Status Reason Start Date Expiration Date V isits Requested Visits Authorized [id number] Closed Specialty Services Required 08/21/2023 08/20/2024 1 1 Reason Comments Follow-up Specialty Diagnoses / Procedures Referred By Farrah willard Referred To Contact Diagnoses Interstitial cystitis (chronic) without hematuria Pelvic and perineal pain Other chronic pain Interstitial cystitis (chronic) without hematuria [N30.10] Pelvic and perineal pain [R10.2] Other chronic pain [G89.29] Procedures MT PELVIC EXAMINATION W/ANESTHESIA OTHER THAN LOCAL MT CYSTOURETHROSCOPY W/DIL BLADDER GENERAL ANESTH MT INJECTION SINGLE/WHISTLE PUNK TRIGGER POINT 1/2 MUSCLES MT INJECTION AA&/STRD PUDENDAL NERVE MT LAPS FULG/EXC OVARY VISCERA/PERITONEAL SURFACE MT LAPS ABD PRTM&OMENTUM DX W/WO SPEC BR/WA SPX MT LAPS FULG/EXC OVARY VISCERA/PERITONEAL SURFACE PELVIC EXAMINATION UNDER ANESTHESIA, CYSTOSCOPY WITH HYDRODISTENTION, TRIGGER POINT INJECTIONS, PUDENDAL NERVE BLOCK, DIAGNOSTIC LAPAROSCOPY, LAPAROSCOPIC EXCISION OF ENDOMETRIOSIS CYSTOSCOPY DILATION OF BLADDER (GENERAL OR SPINAL ANESTHESIA) INJECTION(S) SINGLE OR MULTIPLE TRIGGER POINTS 1 0R 2 MUSCLES INJECTION ANESTHETIC AGENT PUDENDAL NERVE LAPAROSCOPY FULGURATION/EXCISION OF LESIONS DIAGNOSTIC LAPAROSCOPY LAPAROSCOPY FULGURATION/EXCISION OF LESIONS Lorenza Erickson, DO [address] [facility] [address] [place] [id number] Referral ID Status Reason Start Date Expiration Date Visits Re quested Visits Authorized [id number] 10/15/2023 1 1 Reason Comments Post-op Visit FOR RECORDS PERTAINING TO PATIENTS WHO ARE OR HAVE BEEN ENROLLED IN A CHEMICAL DEPENDENCY/SUBSTANCEABUSE PROGRAM, SOME INFORMATION MAY BE OMITTED. This clinical summary was aggregated from multiple sources. Caution should be exercised in using it in the provision of clinical care. This summary normalizes information from multiple sources, and as a consequence, information in this document may materially change the coding, format and clinical context of patient data. In addition, data may be omitted in some cases. CLINICAL DECISIONS SHOULD BE BASED ON THE PRIMARY CLINICAL RECORDS. [facility]. provides no warranty or guarantee of the accuracy or completeness of information in this document.
[2024-01-09 12:19] LABS: Hematocrit 45.3 % (37-47); Hemoglobin 14.8 g/dL (12.0-15.0); Mean Corp Hgb Conc 32.7 g/dL (32-36); Mean Corpuscular Hgb 32.5 pg (27.0-32.0); Mean Corpuscular Volume 99.3 fL (81-99); Mean Platelet Vol. 10.2 fl (6.2-12.0); Platelet Count 353 K/mm3 (150-450); RBC Distribution Width CV 12.6 % (11.6-14.6); RBC Distribution Width SD 46.4 fl (35.1-43.9); Red Blood Count 4.56 M/mm3 (4.2-5.4); White Blood Count 8.8 K/mm3 (4.4-11.0)
[2024-01-09 13:01] LABS: ALB/GLOB Ratio 0.9 RATIO (0.9-2.4); AST(SGOT) 53 U/L (15-37); Alanine Aminotransfer ALT/SGPT 103 U/L (13-56); Albumin, Serum 3.7 g/dL (3.2-5.0); Alkaline Phosphatase 95 U/L (45-117); Anion Gap 7 (5-15); BUN 8 mg/dL (7-18); BUN/Creat Ratio 8.6 RATIO (10-20); Calcium,Total 9.4 mg/dL (8.5-10.1); Chloride 109 mmol/L (98-107); Creatinine, Serum 0.93 mg/dL (0.55-1.02); EST Glomerular Filtration Rate 79 mL/min (>60); Est Glom Filt Rate - Afr Amer 95 mL/min (>60); Ferritin 118 ng/mL (8-252); Free T3 3.2 pg/mL (2.18-3.98); Globulin 4.2 g/dL (2.2-4.2); Glucose 99 mg/dL (74-106); Potassium 3.8 mmol/L (3.5-5.1); Protein, Total 7.9 g/dL (6.4-8.2); Sodium Level 138 mmol/L (136-145); T4 Free Direct 1.05 ng/dL (0.76-1.46); Thyroid Stim Hormone (TSH) 1.71 uIU/mL (0.358-3.74)
[2024-01-09 16:55] LABS: Hemoglobin A1c 5.2 % (3.8-5.6)
== END | disposition home or self-care (01) ==
LOC: MFPLAB 10:25
PROVIDERS: PCP Family Medicine; Visit Provider Family Medicine
DX: E66.1 Drug-induced obesity (principal); N80.9 Endometriosis, unspecified
CPT/HCPCS: 36415; 80053; 82728; 83036; 84439; 84443; 84481; 85027

== ENCOUNTER → 2024-03-11 | Outpatient (CLI) | payer MEDICAID, SELFPAY ==
[2024-03-11 18:29] LABS: Vitamin B12 791 pg/mL (211-911); Vitamin D,25 Hydroxy 21.6 ng/mL
[2024-03-11 18:45] LABS: ALB/GLOB Ratio 1.1 RATIO (0.9-2.4); AST(SGOT) 41 U/L (15-37); Alanine Aminotransfer ALT/SGPT 98 U/L (13-56); Albumin, Serum 4.1 g/dL (3.2-5.0); Alkaline Phosphatase 86 U/L (45-117); Anion Gap 5 (5-15); BUN 10 mg/dL (7-18); BUN/Creat Ratio 12.8 RATIO (10-20); Calcium,Total 9.2 mg/dL (8.5-10.1); Chloride 109 mmol/L (98-107); Creatinine, Serum 0.78 mg/dL (0.55-1.02); EST Glomerular Filtration Rate 96 mL/min (>60); Est Glom Filt Rate - Afr Amer 116 mL/min (>60); Globulin 3.8 g/dL (2.2-4.2); Glucose 84 mg/dL (74-106); Lipase 25 U/L (13-75); Potassium 3.6 mmol/L (3.5-5.1); Protein, Total 7.9 g/dL (6.4-8.2); Sodium Level 139 mmol/L (136-145)
== END | disposition home or self-care (01) ==
LOC: MFPLAB 15:51
PROVIDERS: PCP Family Medicine; Visit Provider Family Medicine
DX: E66.9 Obesity, unspecified (principal); E55.9 Vitamin D deficiency, unspecified; E53.8 Deficiency of other specified B group vitamins
CPT/HCPCS: 36415; 80053; 82306; 82607; 82746; 83690

== ENCOUNTER → 2024-10-15 | Outpatient (CLI) | payer MEDICAID, SELFPAY ==
--- NOTE | 2024-10-15 14:20 | RAD_ITS ---
EXAM: XR ABDOMEN, 1 VIEW CLINICAL INDICATION: ABDOMINAL PAIN TECHNIQUE: Frontal supine view of the abdomen/pelvis. COMPARISON: No relevant prior studies available. FINDINGS: LOWER THORAX: No acute pathology. GASTROINTESTINAL TRACT: No large amount of retained fecal contents. Non-obstructive. No bowel or stomach distention. ORGANS: Unremarkable as visualized. No organomegaly. No abnormal calcifications. BONES/JOINTS: No acute pathology. SOFT TISSUES: No acute pathology. RAD/Abdomen Single View IMPRESSION: No bowel obstruction or acute abnormality in the abdomen and pelvis. Electronically Signed: Roque Hwang MD at 14:38 EST ,
[2024-10-15 15:20] LABS: Absolute Lymphocyte Count 3.05 X10^3/uL (0.83-4.51); Absolute Neutrophil Count 5.2 X10^3/uL (2.0-7.7); Basophil# 0.06 X10^3/uL; Basophil% 0.7 % (0-1); Eosinophil# 0.05 X10^3/uL; Eosinophils% 0.6 % (0-5); Hematocrit 41.8 % (37-47); Hemoglobin 13.5 g/dL (12.0-15.0); Lymphocyte # 3.05 X10^3/ul (0.83-4.51); Lymphocyte % 33.8 % (19-41); Mean Corp Hgb Conc 32.3 g/dL (32-36); Mean Corpuscular Hgb 31.5 pg (27.0-32.0); Mean Corpuscular Volume 97.7 fL (81-99); Mean Platelet Vol. 10.3 fl (6.2-12.0); Monocyte# 0.64 X10^3/uL; Monocyte% 7.1 % (0-10); NRBC Flagged by Analyzer 0 % (0-5); Neutrophil # 5.21 X10^3/uL (2.7-7.7); Neutrophil % 57.6 % (47-70); Platelet Count 334 K/mm3 (150-450); RBC Distribution Width CV 11.6 % (11.6-14.6); Red Blood Count 4.28 M/mm3 (4.2-5.4)
[2024-10-15 15:48] LABS: ALB/GLOB Ratio 0.9 RATIO (0.9-2.4); AST(SGOT) 12 U/L (15-37); Alanine Aminotransfer ALT/SGPT 22 U/L (13-56); Albumin, Serum 3.3 g/dL (3.2-5.0); Alkaline Phosphatase 55 U/L (45-117); Anion Gap 5 (5-15); BUN 7 mg/dL (7-18); BUN/Creat Ratio 10.3 RATIO (10-20); CRP < 2.90 mg/L (0.0-3.0); Calcium,Total 8.8 mg/dL (8.5-10.1); Chloride 109 mmol/L (98-107); Creatinine, Serum 0.68 mg/dL (0.55-1.02); EST Glomerular Filtration Rate 113 mL/min (>60); Est Glom Filt Rate - Afr Amer 136 mL/min (>60); Globulin 3.6 g/dL (2.2-4.2); Glucose 77 mg/dL (74-106); Lipase 26 U/L (13-75); Potassium 3.6 mmol/L (3.5-5.1); Protein, Total 6.9 g/dL (6.4-8.2); Sodium Level 140 mmol/L (136-145)
== END | disposition home or self-care (01) ==
PROVIDERS: PCP Family Medicine; Referring Provider Family Medicine; Visit Provider Family Medicine
DX: R10.9 Unspecified abdominal pain (principal)
CPT/HCPCS: 36415; 74018; 80053; 83690; 85025; 86140

== ENCOUNTER 2024-10-19 11:12 | Observation (INO) | payer MEDICAID, SELFPAY ==
[2024-10-19 11:13] VITALS: BP 134/86; PULSE 113; RESP 19; TEMP 36.1; O2SAT 100; BMI 30.7
--- NOTE | 2024-10-19 11:22 | US_ITS ---
STUDY: ABDOMINAL ULTRASOUND - RIGHT UPPER QUADRANT REASON FOR VISIT: Female, 24 years old . Right upper quadrant pain with nausea and vomiting. TECHNIQUE: Ultrasound evaluation of the right upper quadrant was performed with real-time and static petersen-scale imaging. TECHNICAL QUALITY: Adequate. COMPARISON: Comparison is made with prior study dated December 27, 2020. FINDINGS: Liver: The liver measures 13.7 cm. There is normal echogenicity of the liver. The bile ducts are within normal limits. There is hepatic color flow. The direction of portal flow is hepatopetal. There is no demonstrated mass lesion. Gallbladder: Normal distended gallbladder. The gallbladder wall measures 1 mm. There is a negative sonographic Xiong''s sign. There is no pericholecystic fluid. There is a solitary gallstone in neck of the gallbladder measuring 4 mm x 5 mm x 3 mm. Common Bile Duct (C.B.D.): The common bile duct measures 4 mm. Pancreas: Normal size of the head, body and tail of the pancreas. There is normal echogenicity of the pancreas. There is no demonstrated pancreatic mass or cyst. Right Kidney: Normal size of the right kidney. The right kidney measures 10 cm x 5.4 cm x 4.3 cm. Normal renal cortex. The right cortex measures 1.2 cm. There is no demonstrated renal mass or cyst. There is no right hydronephrosis. US/Gallbladder IMPRESSION: Solitary gallstone in neck of the gallbladder. Electronically Signed: Israel Araiza MD at 12:25 EST ,
--- NOTE | 2024-10-19 11:23 | EDS_ITS ---
HPI HPI - GI History of Present Illness Chief Complaint: Abd Pain Detail of Chief Complaint: Right upper quadrant pain radiating through the back Informant: patient Abdominal Pain/Flank Pain Onset: Weeks Context: Sudden Onset Timing: Continuous (Continue surpass 2 weeks prior with intermittent) and Waxes and wanes Quality: Aching Location: RUQ Current Severity: Severe Maximum Severity: Severe Worsened by: Food Relieved by: Nothing Nausea/Vomiting/Emesis GI Symptom: Positive for Nausea; Negative for Vomiting Diarrhea/Melena/Hematochezia GI Symptom: Negative for Diarrhea, Melena or Hematochezia Associated Symptoms Associated Symptoms: Negative for Dysuria, Frequency, Hematuria or Urgency Narrative Narrative: Patient is a 24-year-old female. She was seen by her primary care physician Dr. Gary Salvador. Blood work was obtained on October 15. Blood work was obtained on October 15 and unremarkable. Patient is scheduled for an ultrasound of the gallbladder. She states she could not wait. The pain does radiate through to her back. Initially greasy fried foods made it worse. She states now anything she eats makes it worse. She has not anything to eat since yesterday. She had sadaf julio césar this morning. She does complain of subjective fever and chills. She denies headache, visual, ocular auditory symptoms. She denies upper respiratory tract infectious symptoms. She denies cardiac symptoms. She denies black or maroon-colored stool. Denies constipation or diarrhea. She denies dysuria, frequency, urgency or hematuria. She denies history of renal or ureteral calculi. Her 26-year-old sister had her gallbladder out recently. Patient was and delivered December 2022. Patient presents now with continuous pain for the past 2 weeks. Prior similar symptoms: Yes Recent Illness/Hospitalization: Yes PFSH PFSH Medical History Pre-eclampsia Endometriosis Pelvic pain Home Medications ?Medication ?Instructions ?Recorded ?Last Taken ?Type Gummies 1 gummy PO/SL DAILY Check with 12/10/22 12/09/22 09:00 History primary doctor Allergy/AdvReac Type Severity Reaction Status Date / Time hydrocodone Allergy Hives Verified 12/10/22 15:31 Family History Mother Hypertension Surgical History History of surgery Hx of appendectomy Social History (Updated 10/19/24 @ 11:[address] Enrique Aburto MD) household members: children Smoking Status: Former smoker ROS ROS ED Constitutional Constitutional ED: Reports chills, fever(s) and subjective; Denies sweats or weight loss ENT ENT ED: Denies ear pain, rhinorrhea or sore throat Cardiovascular Cardiovascular: Denies chest pain, palpitations or racing heartbeat Respiratory/Chest Respiratory/Chest: Denies cough, dyspnea or dyspnea on exertion Gastrointestinal Gastrointestinal: Reports abdominal pain and nausea; Denies constipation, diarrhea, melena or vomiting Genitourinary Genitourinary ED: Denies dysuria, hematuria or urinary frequency Musculoskeletal Musculoskeletal: Reports back pain; Denies arthralgias or myalgias Integumentary Denies rash Neurologic Neurologic: Denies headache(s) Hematologic/Lymphatic Hematologic/Lymphatic: Denies easy bleeding or easy bruising EXAM Physical Exam Const Vital Signs: 10/19/24 11:13 10/19/24 13:13 Temperature 96.9 F L Temperature Source Temporal Pulse Rate 113 H 88 Respiratory Rate 19 H 18 Blood Pressure 134/86 H 161/99 H Blood Pressure Mean 102 119 Pulse Ox 100 99 Oxygen Delivery Method Room Air Room Air Positive well nourished and well developed Constitutional Narrative: BMI is 30.7. Patient appears uncomfortable. General Appearance ED: well developed; Negative for NAD or pallor HEENT Reports moist mucous membranes normocephalic and atraumatic Eyes PERRL and EOMs intact bilaterally General Eye ED: Negative for pale conjunctiva or scleral icterus Neck no lymphadenopathy, supple and no JVD Resp normal respiratory effort and clear to auscultation bilaterally Cardio regular rate, regular rhythm, S1 normal heart sound, S2 normal heart sound and no murmurs GI non-distended and no masses; Negative for non-tender Palpation: soft and tender RUQ and Xiong's sign Back/Spine no CVA tenderness Extremity full ROM General Extremety ED: Negative for edema or tenderness General Extremity: Negative for edema Neuro CN's II-XII intact bilaterally and moves all extremities Sensorium / Orientation: alert Psych mental status grossly normal and thought process normal Skin no wounds General Skin Exam: Negative for jaundice or pallor MDM MDM MDM Narrative Medical decision making narrative: Right upper quadrant pain need to evaluate for liver disease, bowel bladder disease, peptic ulcer disease. There is no concern for pulmonary disease causing this or cardiac. Will obtain CBC, hepatic and lipase and ultrasound was ordered since she has not had any to eat or since yesterday. She reported drinking sadaf julio césar earlier this morning. She did not have any coffee or cream. Lab Data Lab results narrative: White count and differential are normal. H&H is normal. Labs: Laboratory Results - last 24 hr 10/19/24 11:20 WBC 8.7 RBC 4.34 Hgb 14.2 Hct 42.3 MCV 97.5 MCH 32.7 H MCHC 33.6 RDW Std Deviation 41.7 RDW Coeff of Gino 11.5 L Plt Count 320 MPV 10.4 Immature Gran % (Auto) 0.300 Neut % (Auto) 66.3 Lymph % (Auto) 25.3 [place] % (Auto) 7.0 Eos % (Auto) 0.6 Baso % (Auto) 0.5 Absolute Neuts (auto) 5.8 Absolute Lymphs (auto) 2.21 Nucleated RBC % 0 Total Bilirubin 0.20 Direct Bilirubin 0.07 AST 13 L ALT 21 Alkaline Phosphatase 48 Total Protein 7.0 Albumin 3.3 Globulin 3.7 Lipase 31 Serum , Qual NEGATIVE Radiography Diagnostic Testing: Clinical Impression(s) from Imaging Studies Gallbladder Ultrasound 10/19/24 11:22 IMPRESSION: Solitary gallstone in neck of the gallbladder. Electronically Signed: Israel Araiza MD at 12:25 EST , Abdomen/Pelvis CT 10/19/24 13:08 IMPRESSION: No obstructive uropathy is seen at this time. 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 Electronically Signed: Israel Araiza MD at 14:12 EST , Gallbladder ultrasound reveals what appears to be 3 stones. Awaiting formal read. Management Discussion w/another healthcare provider: [employer] Targeting Supervisor (Dr. Ross saw patient. He believes this is her kidney. CT of the abdomen and pelvis with out contrast was obtained. Per my review interpretation there is no evidence of renal or ureterolithiasis. He was paged. Patient is still having pain. Patient states she is seen disagreement with Dr. Ross) Treatment and Re-Evaluation :: Patient was reassessed at 1230. Patient still having pain. She did receive initially Toradol, morphine and Zofran. Will order additional dose of morphine. Dr. Ross has been paged. Comments:: Patient was given additional dose of morphine for her pain. Vital Sign Attestation:: Patient was seen by the nurse practitioner for Dr. Ross. Plan is to [facility] with plan to scope in the morning and then possible cholecystectomy depending on results of EGD. Discharge Plan Triage Chief Complaint: Abd Pain ED Provider: Enrique Aburto Dx/Rx/DC Orders Clinical Impression: Intractable right upper quadrant abdominal pain, Nausea, Cholelithiasis Prescriptions: No Action Gummies 1 gummy PO/SL DAILY Primary Care Provider: Gary Salvador Referrals: Gary Salvador MD [Primary Care Provider] - Print Language: Indian Disposition Disposition: Acute Care Hospital [facility]
[2024-10-19] MEDS: Ondansetron 4 MG/2 ML Vial IV ×2 (11:27→18:27)
[2024-10-19] MEDS: Ketorolac 15 MG/ML Vial IV (11:27)
[2024-10-19] MEDS: Morphine 4 MG/ML Syringe IV ×4 (11:28→21:41)
[2024-10-19 12:29] LABS: Absolute Lymphocyte Count 2.21 X10^3/uL (0.83-4.51); Absolute Neutrophil Count 5.8 X10^3/uL (2.0-7.7); Basophil# 0.04 X10^3/uL; Basophil% 0.5 % (0-1); Eosinophil# 0.05 X10^3/uL; Eosinophils% 0.6 % (0-5); Hematocrit 42.3 % (37-47); Hemoglobin 14.2 g/dL (12.0-15.0); Lymphocyte # 2.21 X10^3/ul (0.83-4.51); Lymphocyte % 25.3 % (19-41); Mean Corp Hgb Conc 33.6 g/dL (32-36); Mean Corpuscular Hgb 32.7 pg (27.0-32.0); Mean Corpuscular Volume 97.5 fL (81-99); Mean Platelet Vol. 10.4 fl (6.2-12.0); Monocyte# 0.61 X10^3/uL; NRBC Flagged by Analyzer 0 % (0-5); Neutrophil % 66.3 % (47-70); Platelet Count 320 K/mm3 (150-450); RBC Distribution Width CV 11.5 % (11.6-14.6); RBC Distribution Width SD 41.7 fl (35.1-43.9); Red Blood Count 4.34 M/mm3 (4.2-5.4); White Blood Count 8.7 K/mm3 (4.4-11.0)
[2024-10-19 12:47] LABS: AST(SGOT) 13 U/L (15-37); Alanine Aminotransfer ALT/SGPT 21 U/L (13-56); Albumin, Serum 3.3 g/dL (3.2-5.0); Alkaline Phosphatase 48 U/L (45-117); Bilirubin, Direct 0.07 mg/dL (0.00-0.30); Globulin 3.7 g/dL (2.2-4.2); Lipase 31 U/L (13-75)
--- NOTE | 2024-10-19 13:08 | CT_ITS ---
STUDY: CT ABDOMEN AND PELVIS WITHOUT CONTRAST REASON FOR EXAM: Female, 24 years old. Flank pain right RADIATION DOSAGE (If Supplied By Facility): CTDIvol = ( 9.00 ) mGy, DLP = ( 463.31 ) mGycm TECHNIQUE: Transaxial images were obtained from the dome of the diaphragm to the symphysis pubis without oral contrast, and without intravenous contrast. Sagittal and coronal images were reconstructed. Individualized dose optimization techniques were used for this CT. COMPARISON: Comparison is made with prior study dated June 26, 2021. FINDINGS: The visualized lung bases are unremarkable. The visualized portions of the heart are within normal limits. Normal liver. Normal gallbladder and extrahepatic biliary system. Normal spleen. Normal pancreas. Normal bilateral adrenal glands. Normal right kidney. Normal left kidney. Increased density of the renal papilla suggestive of medullary sponge kidney. Normal visualized stomach. Normal small intestine. Normal colon. There are surgical clips in the region of the appendix consistent with a prior appendectomy. Normal abdominal aorta. Normal inferior vena cava. Normal retroperitoneum. Normal urinary bladder. Normal abdominal wall. Normal osseous structures. CT/Abdomen/Pelvis without Cont IMPRESSION: No obstructive uropathy is seen at this time. 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 Electronically Signed: Israel Araiza MD at 14:12 [facility] ,
[2024-10-19 13:13] VITALS: BP 161/99; PULSE 88; RESP 18; O2SAT 99
[2024-10-19 13:42] LABS: Internal QC Validated? YES +Cl - CLEAR BKGD; Pregnancy, Serum, hCG Quali. NEGATIVE Negative
--- NOTE | 2024-10-19 13:48 | PCM.HP.STD ---
[facility] - General General Date of Service: 10/19/24 Chief Complaint: Epigastric/RUQ pain HPI Narrative PONCHO ORTIZ, is a 24 F who presents with a 2 weeks history of pain in the epigastric/RUQ of her abdomen which radiates into the right mid back. Patient notes an achy type feeling within her abdomen. She notes a few days ago the abdominal pain was associated with back pain. She notes feeling bloated. She also notes a change in bowel habits to loose stools which are light in color and appear greasy. She denies any urinary issues. She thought she started with the stomach flu. Patient states she recently gave in December of 2022. She denies any gallbladder concerns during the . She notes previous appendectomy in 2013. Patient also had endometrial work-up in . Patient had a RUQ u/s demonstrating solitary gallstone in the neck of the gallbladder. Negative sonographic Xiong's sign. No pericholecystic fluid and normal gallbladder wall. Labs demonstrate WBC 8.7, Hgb 14.2, Hct 42.3, Plt 320. Liver enzymes are unremarkable. [facility] Medical History Pre-eclampsia Endometriosis Pelvic pain Home Medications ?Medication ?Instructions ?Recorded ?Last Taken ?Type norgestimate 0.25 mg-ethinyl 1 tab PO DAILY 10/19/24 Unknown History estradiol 35 mcg tablet (Sprintec (28)) Allergy/AdvReac Type Severity Reaction Status Date / Time hydrocodone Allergy Hives Verified 12/10/22 15:31 Family History Mother Hypertension Surgical History History of surgery Hx of appendectomy Social History (Updated 10/19/24 @ 11:[address] Enrique Aburto MD) household members: children Smoking Status: Former smoker ROS Constitutional Constitutional: Reports systems reviewed and no addt'l complaints, except as documented Eyes Eyes: Reports systems reviewed and no addt'l complaints, except as documented ENT HEENT: Reports systems reviewed and no addt'l complaints, except as documented Cardiovascular Cardiovascular: Reports systems reviewed and no addt'l complaints, except as documented Respiratory/Chest Respiratory/Chest: Reports systems reviewed and no addt'l complaints, except as documented Gastrointestinal Gastrointestinal: Reports abdominal pain, belching, bloating, change in bowel habits, diarrhea, early satiety, excessive flatus and nausea Genitourinary Genitourinary: Reports systems reviewed and no addt'l complaints, except as documented Musculoskeletal Musculoskeletal: Reports back pain Integumentary Integumentary: Reports systems reviewed and no addt'l complaints, except as documented Neurologic Neurologic: Reports systems reviewed and no addt'l complaints, except as documented Psychiatric Psychiatric: Reports systems reviewed and no addt'l complaints, except as documented Endocrine Endocrinology: Reports systems reviewed and no addt'l complaints, except as documented Hematologic/Lymphatic Hematologic/Lymphatic: Reports systems reviewed and no addt'l complaints, except as documented Allergic/Immunologic Allergic/Immunologic: Reports systems reviewed and no addt'l complaints, except as documented Vital Signs Vital Signs Vital Signs: 10/19/24 11:13 10/19/24 13:13 Temperature 96.9 F L Temperature Source Temporal Pulse Rate 113 H 88 Respiratory Rate 19 H 18 Blood Pressure 134/86 H 161/99 H Blood Pressure Mean 102 119 Pulse Ox 100 99 Oxygen Delivery Method Room Air Room Air Weight Weight: 179 lb Body Mass Index (BMI) 30.7 Physical Exam Const alert, oriented x3 and no apparent distress HEENT normocephalic and head/scalp atraumatic Eyes PERRL Neck full ROM Resp normal respiratory effort and clear to auscultation bilaterally Cardio regular rate and regular rhythm GI GI Narrative: Abdomen- soft, non-distended, tenderness in the epigastric region. no CVA tenderness Back/Spine Back/Spine Narrative: Right lateral thoracic region- tenderness with palpation Extremity normal to inspection Skin no rashes or lesions noted Neuro no focal motor deficits and no sensory deficits noted Psych thought process normal, cooperative and affect normal Mood & Affect: tearful Results Lab / Micro Data 10/19/24 11:20 Labs: Laboratory Results - last 24 hr 10/19/24 11:20: WBC 8.7, RBC 4.34, Hgb 14.2, Hct 42.3, MCV 97.5, MCH 32.7 H, MCHC 33.6, RDW Std Deviation 41.7, RDW Coeff of Gino 11.5 L, Plt Count 320, MPV 10.4, Immature Gran % (Auto) 0.300, Neut % (Auto) 66.3, Lymph % (Auto) 25.3, [place] % (Auto) 7.0, Eos % (Auto) 0.6, Baso % (Auto) 0.5, Absolute Neuts (auto) 5.8, Absolute Lymphs (auto) 2.21, Nucleated RBC % 0, Total Bilirubin 0.20, Direct Bilirubin 0.07, AST 13 L, ALT 21, Alkaline Phosphatase 48, Total Protein 7.0, Albumin 3.3, Globulin 3.7, Lipase 31, Serum , Qual NEGATIVE Imaging Radiology Impression Gallbladder Ultrasound 10/19/24 11:22 IMPRESSION: Solitary gallstone in neck of the gallbladder. Electronically Signed: Israel Araiza MD at 12:25 EST , Assessment & Plan Assessment/Plan (1) Epigastric abdominal pain: (2) Cholelithiasis: QUALIFIERS: Cholelithiasis location: gallbladder Cholecystitis presence: without cholecystitis Biliary obstruction: without biliary obstruction Qualified Code(s): K80.20 - Calculus of gallbladder without cholecystitis without obstruction (3) Nausea: PLAN: Plan I am seeing this patient in conjunction with Dr. Ross. He has also independently evaluated this patient. Patient is a 24 y/o F who presents with a 2 week history of worsening epigastric pain, right thoracic back pain and nausea. Patient notes the pain increase approximately 15 minutes after eating. She had an u/s of the gallbladder which is showing one stone. Patient also had a CT scan of the ab/pel completed which is unremarkable. Patient is very tearful at bedside and questioning why these symptoms are occurring. We have offered admission for observation to the patient with pursuing an upper scope scheduled for tomorrow with Dr. Ross. Patient is agreeable to admission. She voices not understanding why her symptoms are not directly related to her gallbladder. Patient was advised that her symptoms are more vague at this time and part of the work up would be to pursue a lesser invasive procedure to rule out gastritis, peptic ulcer disease or duodenitis prior to pursuing a cholecystectomy. If the EGD is unremarkable, we may discuss a laparoscopic cholecystectomy. Patient verbally understood. Patient has had the opportunity to ask and have questions answered. Dr. Ross will plan to perform an EGD with possible biopsies. Procedure details, risks and benefits have been explained to the patient. Patient verbally understands the procedure and would like to proceed. EGD is scheduled for tomorrow at [address] Ross[address] Plan to place patient on IV pantoprazole. Thank you for allowing us to participate in this patient's care. Charges/Coding Visit Charges OBSV E&M: 29663 Observ/hosp same date L2
[2024-10-19 14:58] VITALS: BP 141/89; PULSE 96; RESP 18; TEMP 36.9; O2SAT 98
--- NOTE | 2024-10-19 16:08 | CASEMGMT ---
Care Management Face to Face with patient for initial transition planning/care coordination assessment in the ED. This fha underwriter introduced self and role at [facility]. Patient lying in bed, alert and oriented. Patient's fiance and sister at bedside; permission given to talk in front of them. Patient willing to participate in assessment and is able to answer all questions appropriately.? Care providers, pharmacy, and demographics verified. Admitting Diagnosis: worsening epigastric pain Other diagnosis history: cholelithiasis, pre-eclampsia, endometriosis PCP: Gary Salvador Specialists: Pelvic floor PT (Rekha Fuchs at [facility]) Preferred Pharmacy: [facility] [place] Insurance: [employer] Medicaid Prescription Benefit: none Living Will/HPOA: none, denies need for this. LNOK: Patient's devorahance, Dwight, and their 2 year old son, Liang. Living Arrangements: ranch style home with 2 steps to enter from [employer]. Transportation: patient drives and has reliable transportation. DME/HHC: none Community Resources: none Behavioral Health History:?none reported. Patient goals: Patient wishes to discharge home and denies need for home health at this time.? Patient states she has no further needs or concerns at this time. Disposition Plan: handoff to acute RN CM/SW team; acute team to follow for discharge planning needs that may arise. Deepika Gordon, PARISH WORKER, [employer]
[2024-10-19 16:48] VITALS: BMI 30.1
[2024-10-19 16:57] VITALS: BP 119/77; PULSE 84; RESP 18; TEMP 36.7; O2SAT 98
[2024-10-19] MEDS: 0.9% Saline Lock 10 ML Syringe IV (18:27)
[2024-10-19 21:12] VITALS: BP 155/102; PULSE 111; RESP 18; TEMP 37; O2SAT 100
[2024-10-19] MEDS: 0.9% Normal Saline (500mL Bag) 500 ML 15 ML IV (21:26)
[2024-10-19] MEDS: Pantoprazole Sodium 40 MG in 0.9% Normal Saline (100mL MB+) 100 ML 330 MG IV (21:27)
[2024-10-20] VITALS (10 sets, daily range): BP systolic 105–124; BP diastolic 55–73; PULSE 81–100; RESP 14–22; TEMP 36.6–37.2; O2SAT 96–100
[2024-10-20 04:05] LABS: Absolute Lymphocyte Count 3.13 X10^3/uL (0.83-4.51); Basophil# 0.04 X10^3/uL; Basophil% 0.5 % (0-1); Eosinophil# 0.06 X10^3/uL; Eosinophils% 0.8 % (0-5); Hematocrit 36.9 % (37-47); Hemoglobin 12.1 g/dL (12.0-15.0); Lymphocyte # 3.13 X10^3/ul (0.83-4.51); Lymphocyte % 40.1 % (19-41); Mean Corp Hgb Conc 32.8 g/dL (32-36); Mean Corpuscular Hgb 31.8 pg (27.0-32.0); Mean Corpuscular Volume 97.1 fL (81-99); Monocyte% 7.7 % (0-10); NRBC Flagged by Analyzer 0 % (0-5); Neutrophil # 3.95 X10^3/uL (2.7-7.7); Neutrophil % 50.6 % (47-70); Platelet Count 257 K/mm3 (150-450); RBC Distribution Width CV 11.6 % (11.6-14.6); RBC Distribution Width SD 41.1 fl (35.1-43.9); White Blood Count 7.8 K/mm3 (4.4-11.0)
[2024-10-20 04:29] LABS: ALB/GLOB Ratio 0.8 RATIO (0.9-2.4); AST(SGOT) 10 U/L (15-37); Alanine Aminotransfer ALT/SGPT 20 U/L (13-56); Albumin, Serum 2.7 g/dL (3.2-5.0); Alkaline Phosphatase 45 U/L (45-117); Anion Gap 5 (5-15); BUN 11 mg/dL (7-18); Calcium,Total 8.2 mg/dL (8.5-10.1); Chloride 112 mmol/L (98-107); Creatinine, Serum 0.73 mg/dL (0.55-1.02); EST Glomerular Filtration Rate 103 mL/min (>60); Est Glom Filt Rate - Afr Amer 125 mL/min (>60); Estimated Creatinine Clearance 121.26 ml/min; Globulin 3.2 g/dL (2.2-4.2); Glucose 103 mg/dL (74-106); Potassium 3.4 mmol/L (3.5-5.1); Protein, Total 5.9 g/dL (6.4-8.2); Sodium Level 140 mmol/L (136-145)
[2024-10-20] MEDS: Potassium Chloride 10mEq/100mL 10 MEQ/100 ML IV.SOLN. 100 MEQ IV BOLUS ×4 (07:51→12:38)
--- NOTE | 2024-10-20 08:01 | PN.SURG_ITS ---
Subjective Subjective Patient evaluated resting comfortably in bed. She denies any abdominal pain this morning. She denies any nausea, vomiting. She notes pain has improved since admission. Objective Data Objective Data Vital Signs: Vital Signs Temp Pulse Resp BP Pulse Ox O2 Del Method 98.2 F 81 18 105/67 96 Room Air 10/20/24 07:58 10/20/24 07:58 10/20/24 07:58 10/20/24 07:58 10/20/24 07:58 10/20/24 07:58 Oxygen Delivery Method Room Air Weight: 175 lb 6 oz Body Mass Index (BMI) 30.1 Intake & Output: Intake and Output for Last 24 Hours 10/18/24 10/19/24 10/20/24 23:59 23:59 23:59 Intake Total 350 / 350 500 / 500 Balance 350 / 350 500 / 500 Lab / Micro Data 10/20/24 03:51 10/20/24 03:51 Labs: Laboratory Results - last 24 hr 10/19/24 11:20: WBC 8.7, RBC 4.34, Hgb 14.2, Hct 42.3, MCV 97.5, MCH 32.7 H, MCHC 33.6, RDW Std Deviation 41.7, RDW Coeff of Gino 11.5 L, Plt Count 320, MPV 10.4, Immature Gran % (Auto) 0.300, Neut % (Auto) 66.3, Lymph % (Auto) 25.3, [place] % (Auto) 7.0, Eos % (Auto) 0.6, Baso % (Auto) 0.5, Absolute Neuts (auto) 5.8, Absolute Lymphs (auto) 2.21, Nucleated RBC % 0, Total Bilirubin 0.20, Direct Bilirubin 0.07, AST 13 L, ALT 21, Alkaline Phosphatase 48, Total Protein 7.0, Albumin 3.3, Globulin 3.7, Lipase 31, Serum , Qual NEGATIVE 10/20/24 03:51: WBC 7.8, RBC 3.80 L, Hgb 12.1, Hct 36.9 L, MCV 97.1, MCH 31.8, MCHC 32.8, RDW Std Deviation 41.1, RDW Coeff of Gino 11.6, Plt Count 257, MPV 10.0, Immature Gran % (Auto) 0.300, Neut % (Auto) 50.6, Lymph % (Auto) 40.1, [place] % (Auto) 7.7, Eos % (Auto) 0.8, Baso % (Auto) 0.5, Absolute Neuts (auto) 4.0, Absolute Lymphs (auto) 3.13, Nucleated RBC % 0, Sodium 140, Potassium 3.4 L , Chloride 112 H, Carbon Dioxide 23.0, Anion Gap 5, BUN 11, Creatinine 0.73, Estim Creat Clear Calc 121.26, Est GFR (MDRD) Af Amer 125, Est GFR (MDRD) Non-Af 103, BUN/Creatinine Ratio 15.0, Glucose 103, Calcium 8.2 L, Total Bilirubin 0.30, AST 10 L, ALT 20, Alkaline Phosphatase 45, Total Protein 5.9 L, Albumin 2.7 L, Globulin 3.2, Albumin/Globulin Ratio 0.8 L Radiography Diagnostic Testing: Radiology Impression Gallbladder Ultrasound 10/19/24 11:22 IMPRESSION: Solitary gallstone in neck of the gallbladder. Electronically Signed: Israel Araiza MD at 12:25 EST , Abdomen/Pelvis CT 10/19/24 13:08 IMPRESSION: No obstructive uropathy is seen at this time. 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 Electronically Signed: Israel Araiza MD at 14:12 EST , Physical Exam GI GI Narrative: Abdomen- soft, nontender. Assessment & Plan Assessment/Plan (1) Epigastric abdominal pain: (2) Nausea: (3) Cholelithiasis: QUALIFIERS: Cholelithiasis location: gallbladder Cholecystitis presence: without cholecystitis Biliary obstruction: without biliary obstruction Qualified Code(s): K80.20 - Calculus of gallbladder without cholecystitis without obstruction PLAN: Plan I am following this patient in conjunction with Dr. Ross. He has also evaluated this patient. Patient scheduled for an upper scope this morning with Dr. Ross We will continue to monitor this patient Charges/Coding Visit Charges Inpatient E&M: 55376 Subs Hosp L1 (pre-op)
--- NOTE | 2024-10-20 10:12 | PCM.PRE.AN2 ---
ASA Classification* ASA Classification ASA Classification: 2 Assessment & Plan Anesthesia* Anesthesia Assessment Anesthesia Assessment: Discussed sedation and/or anesthesia options, risks, benefits, and alternatives with patient/parents/legal guardian/POA. Questions invited. The patient/parents/legal guardian/POA seems to understand and agrees to proceed with anesthesia plan. Reviewed the physical assessment, medical history, allergy history and patient home medications list prior to surgery/procedure/anesthetic and documented any changes. Performed airway and anesthesia risk assessments. Anesthesia Type Anesthesia Type: MAC Anesthesia Focused Assessment* Temperature: 98.2 F Pulse Rate: 81 Blood Pressure: 105/67 Respiratory Rate: 18 Pulse Ox: 96 Airway Assessment Mouth opens: >3 cm Mallampati Score: II Focused Labs Anesthesia Preop lab: CBC WBC 7.8 K/mm3 (4.4-11.0) 10/20/24 03:51 RBC 3.80 M/mm3 (4.2-5.4) L 10/20/24 03:51 Hgb 12.1 g/dL (12.0-15.0) 10/20/24 03:51 Hct 36.9 % (37-47) L 10/20/24 03:51 Plt Count 257 K/mm3 (150-450) 10/20/24 03:51 CHEMISTRY Potassium 3.4 mmol/L (3.5-5.1) L 10/20/24 03:51 Sodium 140 mmol/L (136-145) 10/20/24 03:51 Magnesium 5.6 mg/dL (1.6-2.6) H* 12/11/22 10:37 BUN 11 mg/dL (7-18) 10/20/24 03:51 Creatinine 0.73 mg/dL (0.55-1.02) 10/20/24 03:51 Glucose 103 mg/dL (74-106) 10/20/24 03:51 TSH 1.71 uIU/mL (0.358-3.74) 01/09/24 10:25 COAG PT 12.8 SECONDS (11.7-14.9) 08/21/18 11:21 HCG, Quant < 1 mIU/mL (1-3) 02/05/22 13:43 Urine Test Negative Negative 08/27/18 08:03 Pre-Assessment Diagnosis/Proposed Procedure Planned Operative Procedure(s): EGD Anesthesia History Anesthesia History - diagnostic technologist: Anesthesia History - diagnostic technologist Hx Hospitalization No 12/27/20 17:48 Any Problems With Anesthesia No 08/21/18 10:10 Cholinesterase deficiency No 08/21/18 10:10 You/Your Family Experience No 08/21/18 10:10 fever (hyperthermia) with Relationship Recent Exposure to Contagious No 08/27/18 08:13 Disease Does patient have nerve No 08/21/18 10:10 stimulator Patient instructed to have device shut off --Does patient have Pacemaker or ICD? When Was Last Pacemaker Check QUESTION #4 FULL TEXT: You/Your Family Experience fever (hyperthermia) with Anesthesia Last Oral Intake Last Oral intake: Last Oral Intake NPO since Meds taken in AM with sips of water? Meds patient instructed to take am of surgery PONV PONV - diagnostic technologist: PONV - diagnostic technologist Female HX of Motion Sickness HX of N/V After Surgery Non-Smoker Duration of Surgery greater than 60 minutes Number of Risk Factors PONV Score Height & Weight Height & Weight: Anesthesia: Height & Weight Height 5 ft 4 in 10/19/24 16:48 Weight: 79.549 kg 10/19/24 16:48 Body Mass Index (BMI) 30.1 10/19/24 16:48 Respiratory Assessment Respiratory Assessment - diagnostic technologist: Respiratory Tract Infection Hx - diagnostic technologist Hx Respiratory Tract Infection No 08/21/18 10:10 STOP Sleep Apnea STOP Sleep Apnea - diagnostic technologist: STOP Sleep Apnea - diagnostic technologist Hx Hypertension No 10/19/24 16:48 Hx Sleep Apnea No 10/19/24 16:48 CPAP No 10/19/24 16:48 BIPAP No 10/19/24 16:48 Do you snore loudly (louder No 10/19/24 16:48 than talking or can be heard Do you often feel tired/ No 10/19/24 16:48 fatigued/ sleepy during daytime? Has anyone observed you stop No 10/19/24 16:48 breathing during sleep? STOP Results Negative 10/19/24 16:48 QUESTION #5 FULL TEXT : Do you snore loudly (louder than talking or can be heard through closed doors)? Tobacco Use History Tobacco Use History - diagnostic technologist: Tobacco Use History - diagnostic technologist Tobacco Use Smoking Status Former smoker 10/19/24 16:48 Hx Tobacco Use No 10/19/24 16:48 Years Smoking Packs Smoked per Day Smoking Cessation Date was Yes - quit smoking within 15 10/19/24 16:48 within the last 15 years years Hx Smoking Cessation Date Hx Smoking Cessation Counseling Hematologic Medial History Hematologic Hx - diagnostic technologist: Hematologic Medical Hx - practical nurse Hx of Blood Transfusion No 10/19/24 16:48 Hx of Transfusion in last 3 No 10/19/24 16:48 Months Date of Last Transfusion (if within last 3 months) Ever experience any problems No 10/19/24 16:48 with transfusion(s)? Specify any problems Hx of Preganancy in last 3 No 10/19/24 16:48 Months Nurse Filling Out Transfusion FSTEINER 10/19/24 16:48 & Questions: Date: 10/19/24 10/19/24 16:48 Time: 16:50 10/19/24 16:48 Patient unable to answer at this time (ie. confused, unrespo /Reproduction History /Reproductive History - diagnostic technologist: /Reproductive Hx- diagnostic technologist Hx Now No 10/19/24 16:48 Gestational Age (in weeks): EDC: Hx Hx Para Hx Section SAB No 10/19/24 16:48 Active Medications Active Medications: Current Medications Generic Name Dose Route Start Last Admin Trade Name Freq PRN Reason Stop Dose Admin Acetaminophen 650 mg 10/19/24 17:22 Acetaminophen 325 Mg Tablet PO Q6H PRN PRN Pain 1-10 Or Fever >100.7 Sodium Chloride 500 mls @ 15 mls/hr 10/19/24 16:51 10/19/24 21:26 IV 15 mls/hr .[id number] PRN Administration Saline Flush Sodium Chloride 500 mls @ 15 mls/hr 10/19/24 16:51 IV .[id number] PRN Additional IVPB Infusion Pantoprazole Sodium 40 mg/ 110 mls @ 330 mls/hr 10/19/24 22:00 10/19/24 22:11 Sodium Chloride IV Infused BID LAYA Infusion Potassium Chloride 10 meq in 100 mls @ 100 mls/hr 10/20/24 07:30 10/20/24 09:05 IV BOLUS 10/20/24 11:29 100 mls/hr Q1H LAYA Administration Morphine Sulfate 2 - 4 mg 10/19/24 17:22 Morphine 2 Mg/Ml Syringe IV Q3H PRN PRN Pain Score 6-10 Morphine Sulfate 2 - 4 mg 10/19/24 17:32 10/19/24 21:41 Morphine 4 Mg/Ml Syringe IV 4 mg Q3H PRN PRN Administration Pain Score 6-10 Ondansetron HCl 4 mg 10/19/24 17:22 10/19/24 18:27 Ondansetron 4 Mg/2 Ml Vial IV 4 mg Q8H PRN PRN Administration NAUSEA/VOMITING Sodium Chloride 10 - 40 ml 10/19/24 16:51 10/19/24 18:27 0.9% Saline Lock 10 Ml Syringe IV 10 ml UD PRN Administration SALINE FLUSH PFSH Medical History Post depression Non-smoker Pre-eclampsia Endometriosis Pelvic pain Home Medications ?Medication ?Instructions ?Recorded ?Last Taken ?Type norgestimate 0.25 mg-ethinyl 1 tab PO DAILY 10/19/24 Unknown History estradiol 35 mcg tablet (Sprintec (28)) Allergy/AdvReac Type Severity Reaction Status Date / Time hydrocodone Allergy Hives Verified 12/10/22 15:31 Family History Mother Hypertension Surgical History History of surgery Hx of appendectomy Social History household members: children Smoking Status: Former smoker Review of Systems (Anesthesia) ROS Narrative System reviewed and no additional complaints, except as documented.
--- NOTE | 2024-10-20 11:00 | EGD_PTH ---
PATIENT: PONCHO ORTIZ LOC: MS3 U#:[id number] AGE/SX: 24 ROOM: [facility] [place] RE10/19/[address]: Dr. Clinton Ross MD : 2000 BED: 1 DIS: 10/20/2024 SPEC #: [id number] RECD: 10/20/24 14:02 STATUS: MIESHA SERAFIN #: [id number] GOLDEN: 10/20/24 11:[address]: Clinton Ross DEPT: SURGICAL PATHOLOGY RECD BY: Adelita Hall ENTERED: 10/21/24 08:12 SP TYPE: EGD BIOPSY OT DR: Dr. Gary Salvador MD Tissues: A - Gastric mucous membrane B - Esophagus, NOS C - Esophagus, NOS D - Esophagus, NOS Procedures: Surgery Specimen Level IV HEADER OPERATION: EGD with biopsy and cauterization PRE-OP DIAGNOSIS: Epigastric abdominal pain, cholelithiasis, nausea TISSUE SUBMITTED: A- Antrum biopsy, B- Greater curvature mucosal biopsy, C- Mid esophagus biopsy, D- Greater curvature ulcer biopsy MICROSCOPIC DIAGNOSIS A. Antrum, biopsy: Mild gastritis. See microscopic description and comment. B. Greater curvature mucosa, biopsy: Mild gastritis. See microscopic description. C. Mid esophagus, biopsy: Fragments of benign squamous epithelium. D. Greater curvature ulcer, biopsy: Mild gastritis. See microscopic description. 10/22/2024 COMMENT A. The results of immunohistochemistry for Helicobacter pylori will be reported separately ([id number]). MICROSCOPIC DESCRIPTION Slides are reviewed. A, B, D. The specimen shows fragments of gastric mucosa with chronic inflammatory cell infiltrates in the lamina propria consisting of lymphocytes and plasma cells, consistent with mild chronic gastritis. GROSS DESCRIPTION A. Received in fixative is one container labeled with the patient's name and designated Antrum biopsy. The specimen consists of two irregular fragments of light mclean soft tissue that in aggregate measure 0.6 x 0.3 x 0.1 cm. The specimen is totally submitted in one cassette. B. Received in fixative is one container labeled with the patient's name and designated Greater curvature mucosal biopsy. The specimen consists of multiple irregular fragments of light mclean soft tissue that in aggregate measure 1.5 x 0.2 x 0.1 cm. The specimen is totally submitted in one cassette. C. Received in fixative is one container labeled with the patient's name and designated Mid esophagus biopsy. The specimen consists of multiple irregular fragments of light mclean soft tissue that in aggregate measure 0.5 x 0.5 x 0.1 cm. The specimen is totally submitted in one cassette. D. Received in fixative is one container labeled with the patient's name and designated Greater curvature ulcer biopsy. The specimen consists of one irregular fragment of light mclean soft tissue that measures 0.4 x 0.3 x 0.1 cm. The specimen is totally submitted in one cassette. SJYousifmr 10/21/2024 TC:3 CPT:46457l2
--- NOTE | 2024-10-20 11:00 | IMM_PTH ---
PATIENT: PONCHO ORTIZ LOC: MS3 U#:[id number] AGE/SX: 24 ROOM: [facility] [place] RE10/19/[address]: Dr. Clinton Ross MD : 2000 BED: 1 DIS: 10/20/2024 SPEC #: [id number] RECD: 10/21/24 08:44 STATUS: MIESHA REQ #: [id number] GOLDEN: 10/20/24 11:[address]: Clinton Ross DEPT: IMMUNOHISTOCHEMISTRY RECD BY: Johnny Sotelo ENTERED: 10/21/24 08:45 SP TYPE: IMMUNO OTHR DR: Dr. Gary Salvador MD Tissues: A - Gastric mucous membrane Procedures: H Pylori (initial) PHYSICIAN & INSTITUTION [place] [id number] SPECIMEN INFORMATION: Tissue Source: A- Antrum biopsy Clinical Info: Epigastric abdominal pain, cholelithiasis, nausea Specimen Number: [id number] CPT code: 70624 METHODOLOGY: Deparaffinized sections of prefer/formalin-fixed tissue or PAP/DQ stained slides are incubated with monoclonal/polyclonal antibodies/oligonucleotide probes. Localization is made via biotin free immunoperoxidase method. Appropriate controls are performed and reacted as expected. Results on target cell population are indicated in the following table: RESULTS: ANTIBODY / CLONE RESULT Block A H Pylori (polyclonal) negative These tests were developed and their performance characteristics determined by [facility]. They may not have been cleared or approved by the U.[place]. Food and Drug Administration. The FDA has determined that such clearance or approval is not necessary. The above immunohistochemical/dualISH markers are ordered and reviewed by the Pathologist. INTERPRETATION: A. Antrum, biopsy: Negative for Helicobacter pylori organisms. 10/22/2024
--- NOTE | 2024-10-20 12:18 | PCM.POST.ANE ---
Anesthesia: Postop Eval I Current Vital Signs Temperature: 97.8 F Pulse Rate: 84 Blood Pressure: 122/73 Respiratory Rate: 22 Pulse Ox: 97 Oxygen Delivery Method: Room Air Assessment Airway patent: Yes Spontaneous unlabored respirations: Yes Mental status: Asleep nausea: No Vomiting: No Anesthesia Complication: No Fluid Hydration Crystalloid volume administer (ml): 90 Total IV fluid infused: 90 Progress Note Anesthesia document: Postop Eval 1 completed: Yes
--- NOTE | 2024-10-20 12:23 | OP.EGD_ITS ---
Patient Name: Lexii Case Procedure Date: 10/20/2024 11:32 AM Date of : 2000 Age: 24 Procedure: Upper GI endoscopy Indications: Epigastric abdominal pain, Abdominal pain in the right upper quadrant Providers: Clinton Ross MD Medicines: See the Anesthesia note for documentation of the administered medications Patient Profile: Refer to note in patient chart for documentation of history and physical. Patient has symptoms of acute right upper quadrant abdominal pain, acute epigastric abdominal pain and acute nausea. Complications: No immediate complications. Estimated blood loss: Minimal. Procedure: Pre-Anesthesia Assessment: - The heart rate, respiratory rate, oxygen saturations, blood pressure, adequacy of pulmonary ventilation, and response to care were monitored throughout the procedure. After obtaining informed consent, the endoscope was passed under direct vision. Throughout the procedure, the patient's blood pressure, pulse, and oxygen saturations were monitored continuously. The Endoscope was introduced through the mouth, and advanced to the third part of duodenum. The upper GI endoscopy was accomplished without difficulty. The patient tolerated the procedure well. Scope In: 11:43:47 AM Scope Out: 12:07:42 PM Total Procedure Duration Time 0 hours 23 minutes 55 seconds Findings: The examined duodenum was normal. No biopsies or other specimens were collected for this exam. Diffuse mild inflammation characterized by erythema was found on the greater curvature of the stomach, on the lesser curvature of the stomach and in the gastric antrum. Biopsies were taken with a cold forceps for histology. Estimated blood loss was minimal. One non-bleeding superficial gastric ulcer with pigmented material was found in the stomach. The lesion was 3 mm in largest dimension. Biopsies were taken with a cold forceps for histology. Estimated blood loss: 3 mL requiring treatment with electrocautery. The Z-line was regular. No biopsies or other specimens were collected for this exam. A few 2 to 3 mm mucosal nodules with a localized distribution were found in the middle third of the esophagus, 25 cm from the incisors. Estimated blood loss was minimal. The cardia and gastric fundus were normal on retroflexion. The exam was otherwise without abnormality. Impression: - Normal examined duodenum. No specimens collected. - Gastritis. Biopsied. - Non-bleeding gastric ulcer with pigmented material. Biopsied. - Z-line regular. No specimens collected. - Mucosal nodule found in the esophagus. - The examination was otherwise normal. Recommendation: - [facility]. - Resume regular diet today. - Use sucralfate tablets 1 gram PO BID today. - Await pathology results. - No aspirin, ibuprofen, naproxen, or other non-steroidal anti-inflammatory drugs for 2 days after biopsy. Procedure Code(s): --- Professional --- 78446, Esophagogastroduodenoscopy, flexible, transoral; with biopsy, single or multiple Diagnosis Code(s): --- Professional --- K29.70, Gastritis, unspecified, without bleeding K25.9, Gastric ulcer, unspecified as acute or chronic, without hemorrhage or perforation K22.89, Other specified disease of esophagus R10.13, Epigastric pain R10.11, Right upper quadrant pain CPT copyright 2021 [employer]. All rights reserved. The codes documented in this report are preliminary and upon tree inspector review may be revised to meet current compliance requirements. Clinton Ross MD 10/20/2024 12:23:23 PM This report has been signed electronically. Number of Addenda: 0 Note Initiated On: 10/20/2024 11:32 AM
--- NOTE | 2024-10-20 12:24 | OP.CCLET_ITS ---
10/20/2024 Gary Salvador [address] [place] [address] Re : Upper GI endoscopy procedure for Lexii Evie Dear Dr. Salvador This procedure was performed on Sunday, October 20, 2024. My impressions and recommendations are as follows: Impressions : - Normal examined duodenum. No specimens collected. - Gastritis. Biopsied. - Non-bleeding gastric ulcer with pigmented material. Biopsied. - Z-line regular. No specimens collected. - Mucosal nodule found in the esophagus. - The examination was otherwise normal. Recommendations : - [facility]. - Resume regular diet today. - Use sucralfate tablets 1 gram PO BID today. - Await pathology results. - No aspirin, ibuprofen, naproxen, or other non-steroidal anti-inflammatory drugs for 2 days after biopsy. My findings are described in the full procedure note, which is enclosed. If I can be of further assistance, please feel free to contact me at Doctor phone number(s): , Work: . Sincerely, Clinton Ross MD 10/20/2024 12:23:23 PM This report has been signed electronically.
--- NOTE | 2024-10-20 12:45 | PCM.POSTANE2 ---
Anesthesia Postop Eval I Sum Postop Eval Completion status Anesthesia document: Postop Eval 1 completed: Yes Anesthesia Postop Eval I Summary Anesthesia Postop Eval I Summary: Anesthesia Postop Eval I: Assessment Summary Airway patent Yes 10/20/24 12:19 [email or web address] Spontaneous unlabored Yes 10/20/24 12:19 [email or web address] respirations Mental status Asleep 10/20/24 12:19 [email or web address] nausea No 10/20/24 12:19 [email or web address] Vomiting No 10/20/24 12:19 [email or web address] Anesthesia Postop Eval I: Fluid Summary Crystalloid volume administer 90 10/20/24 12:19 [email or web address] (ml) Colloids volume administered ( ml) Blood Product volume administered (ml) Total IV fluid infused 90 10/20/24 12:19 [email or web address] Anesthesia Postop Eval I: Summary Notes Anesthesia Complication No 10/20/24 12:19 [email or web address] Anesthesia Complication Comment: Post-operative progress note Anesthesia: Postop Eval II Evaluation Mental status: Awake Pain Level: 0 nausea: No Vomiting: No
[2024-10-20] MEDS: Pantoprazole Sodium 40 MG in 0.9% Normal Saline (100mL MB+) 100 ML 330 MG IV (13:02)
[2024-10-20] MEDS: 0.9% Saline Lock 10 ML Syringe IV (13:28)
[2024-10-20] MEDS: Sucralfate 1 GM Tablet PO (13:28)
[2024-10-20] MEDS: Ondansetron 4 MG/2 ML Vial IV (13:28)
--- NOTE | 2024-10-20 13:49 | PCM.PN.BLA ---
Progress Note EGD was completed by Dr. Ross this afternoon. Findings included: The examined duodenum was normal. No biopsies or other specimens were collected for this exam. Diffuse mild inflammation characterized by erythema was found on the greater curvature of the stomach, on the lesser curvature of the stomach and in the gastric antrum. Biopsies were taken with a cold forceps for histology. Estimated blood loss was minimal. One non-bleeding superficial gastric ulcer with pigmented material was found in the stomach. The lesion was 3 mm in largest dimension. Biopsies were taken with a cold forceps for histology. Estimated blood loss: 3 mL requiring treatment with electrocautery. The Z-line was regular. No biopsies or other specimens were collected for this exam. A few 2 to 3 mm mucosal nodules with a localized distribution were found in the middle third of the esophagus, 25 cm from the incisors. Estimated blood loss was minimal. The cardia and gastric fundus were normal on retroflexion. The exam was otherwise without abnormality. Recommend Protonix 40 mg PO daily and Carafate 1 gm PO BID for [address] Ross would like to see patient in the office in 2 weeks for a follow-up from her current medication and reassess her symptoms. Patient is ready for discharge to home.
--- NOTE | 2024-10-20 13:51 | DCINST_ITS ---
Discharge Instructions Diet Discharge Diet: Low fat / Low cholesterol Activity Discharge Activity: Return to Normal Activity and No Restrictions Follow Up Care Please Follow Up With: Clinton Ross MD When: Please contact our office at [phone], option #2 to schedule a follow- up appointment for 2 weeks Test Results: Test results from this visit will be discussed in further detail at your follow- up appointment, if applicable. Discharge Plan Admission Admit Date/Time: 10/19/24 14:58 Primary Reason for Your Visit: Bile reflux; non-bleeding gastric ulcer Attending Provider: Clinton Ross Primary Care Provider: Gary Salvador Discharge Orders/Prescriptions Prescriptions: New sucralfate [Carafate] 1 gram tablet 1 g PO BID 30 Days Qty: 60 0RF pantoprazole [Protonix] 40 mg tablet,delayed release (DR/EC) 40 mg PO DAILY Qty: 30 2RF Continued norgestimate-ethinyl estradiol [Sprintec (28)] 0.25-35 mg-mcg tablet 1 tab PO DAILY Referrals / Follow Up: Gary Salvador MD [Primary Care Provider] - Clinton Ross MD [Med Staff - Active Staff] - 11/03/24 (Please contact our office to schedule a follow-up for 2 weeks) Disposition Disposition (needs filled in before D/C Order can be placed): Home, Self Care
--- NOTE | 2024-10-20 15:17 | PHA.DC.MC.R ---
Pharmacy [facility] Pharmacy Service has performed discharge medication reconciliation and counseling for this patient. 1. PANTOPRAZOLE 40MG PO DAILY 2. SUCRALFATE 1GM PO BID The patient's discharge medication list was reviewed for discrepancies and discrepancies were resolved. The patient was counseled on the following discharge medications and changes in medications for homegoing were reviewed. The Reason for Use, instructions for use, and potential side effects were reviewed for all new medications. The patient's questions regarding all of their medications were answered. The patient was able to verbally demonstrate an understanding of their discharge medications. Patient counseled by hospital pharmacy technicianDeepak. Medications at Discharge Home Medications norgestimate 0.25 mg-ethinyl estradiol 35 mcg tablet (Sprintec (28)) 1 tab PO DAILY 10/19/24 pantoprazole 40 mg tablet,delayed release (Protonix) 40 mg PO DAILY #30 tabs 10/20/24 sucralfate 1 gram tablet (Carafate) 1 g PO BID 1 month #60 tabs 10/20/24
== END 2024-10-20 15:41 | disposition home or self-care (01) ==
LOC: ED 14:55 → MS3 15:43
PROVIDERS: Physician Assistant; Admitting Provider Surgery; Emergency Provider Emergency Medicine; PCP Family Medicine; Visit Provider Surgery
PROC: 0DJ08ZZ Inspection of Upper Intestinal Tract, Via Natural or Artificial Opening Endoscopic (ICD-10-PCS; CPT 43235; principal; 2024-10-20 10:55)
DX: K29.70 Gastritis, unspecified, without bleeding (principal); K80.20 Calculus of gallbladder without cholecystitis without obstruction; Z87.891 Personal history of nicotine dependence; K25.9 Gastric ulcer, unspecified as acute or chronic, without hemorrhage or perforation; K22.89 Other specified disease of esophagus
CPT/HCPCS: 43239; 36415; 74176; 76705; 80053; 80076; 83690; 84703; 85025; 88305; 88342; 96361; 96365; 96366; 96375; 96376; 99221; 99284; J7040; A4216; G0378; J2405

== ENCOUNTER → 2024-10-25 | Outpatient (CLI) | payer MEDICAID, SELFPAY ==
[2024-10-25 17:28] LABS: Hemoglobin 13.7 g/dL (12.0-15.0); Mean Corp Hgb Conc 31.9 g/dL (32-36); Mean Corpuscular Hgb 31.2 pg (27.0-32.0); Mean Corpuscular Volume 97.9 fL (81-99); Mean Platelet Vol. 10.7 fl (6.2-12.0); Platelet Count 377 K/mm3 (150-450); RBC Distribution Width CV 11.5 % (11.6-14.6); RBC Distribution Width SD 42.3 fl (35.1-43.9); Red Blood Count 4.39 M/mm3 (4.2-5.4); White Blood Count 9.5 K/mm3 (4.4-11.0)
[2024-10-25 18:27] LABS: ALB/GLOB Ratio 0.9 RATIO (0.9-2.4); AST(SGOT) 14 U/L (15-37); Alanine Aminotransfer ALT/SGPT 40 U/L (13-56); Albumin, Serum 3.4 g/dL (3.2-5.0); Alkaline Phosphatase 59 U/L (45-117); Anion Gap 5 (5-15); BUN 11 mg/dL (7-18); BUN/Creat Ratio 15.3 RATIO (10-20); CRP 4.78 mg/L (0.0-3.0); Calcium,Total 9.2 mg/dL (8.5-10.1); Chloride 110 mmol/L (98-107); Creatinine, Serum 0.72 mg/dL (0.55-1.02); EST Glomerular Filtration Rate 106 mL/min (>60); Est Glom Filt Rate - Afr Amer 128 mL/min (>60); Globulin 3.6 g/dL (2.2-4.2); Glucose 94 mg/dL (74-106); Lipase 30 U/L (13-75); Potassium 3.9 mmol/L (3.5-5.1); Sodium Level 138 mmol/L (136-145)
== END | disposition home or self-care (01) ==
LOC: MFPLAB 15:31
PROVIDERS: PCP Family Medicine; Visit Provider Family Medicine
DX: R10.11 Right upper quadrant pain (principal)
CPT/HCPCS: 36415; 80053; 83690; 85027; 86140

== ENCOUNTER → 2024-11-05 | Outpatient (CLI) | payer MEDICAID, SELFPAY ==
[2024-11-05 17:26] LABS: Absolute Lymphocyte Count 2.83 X10^3/uL (0.83-4.51); Absolute Neutrophil Count 4.7 X10^3/uL (2.0-7.7); Basophil# 0.05 X10^3/uL; Basophil% 0.6 % (0-1); Eosinophil# 0.09 X10^3/uL; Eosinophils% 1.1 % (0-5); Hematocrit 39.9 % (37-47); Hemoglobin 12.9 g/dL (12.0-15.0); Lymphocyte # 2.83 X10^3/ul (0.83-4.51); Mean Corp Hgb Conc 32.3 g/dL (32-36); Mean Platelet Vol. 10.3 fl (6.2-12.0); Monocyte# 0.64 X10^3/uL; Monocyte% 7.7 % (0-10); NRBC Flagged by Analyzer 0 % (0-5); Neutrophil % 56.4 % (47-70); Platelet Count 320 K/mm3 (150-450); RBC Distribution Width CV 11.8 % (11.6-14.6); RBC Distribution Width SD 42.9 fl (35.1-43.9); Red Blood Count 4.03 M/mm3 (4.2-5.4); White Blood Count 8.3 K/mm3 (4.4-11.0)
[2024-11-05 17:47] LABS: ALB/GLOB Ratio 1.1 RATIO (0.9-2.4); AST(SGOT) 25 U/L (15-37); Alanine Aminotransfer ALT/SGPT 31 U/L (13-56); Albumin, Serum 3.4 g/dL (3.2-5.0); Alkaline Phosphatase 58 U/L (45-117); Anion Gap 4 (5-15); BUN 10 mg/dL (7-18); BUN/Creat Ratio 12.7 RATIO (10-20); CRP < 2.90 mg/L (0.0-3.0); Calcium,Total 9.1 mg/dL (8.5-10.1); Chloride 109 mmol/L (98-107); Creatinine, Serum 0.79 mg/dL (0.55-1.02); EST Glomerular Filtration Rate 95 mL/min (>60); Est Glom Filt Rate - Afr Amer 115 mL/min (>60); Globulin 3.2 g/dL (2.2-4.2); Glucose 91 mg/dL (74-106); Potassium 4.1 mmol/L (3.5-5.1); Protein, Total 6.6 g/dL (6.4-8.2); Sodium Level 140 mmol/L (136-145)
== END | disposition home or self-care (01) ==
LOC: MFPLAB 15:29
PROVIDERS: PCP Family Medicine; Referring Provider Family Medicine; Visit Provider Family Medicine
DX: K80.50 Calculus of bile duct without cholangitis or cholecystitis without obstruction (principal)
CPT/HCPCS: 36415; 80053; 85025; 86140

== ENCOUNTER → 2025-01-12 | Outpatient (CLI) | payer MEDICAID, SELFPAY ==
--- NOTE | 2025-01-12 12:07 | NM_ITS ---
EXAM: HEPATOBILLIARY IMG W/PHARM INT CLINICAL HISTORY: Right upper quadrant pain. Nausea and vomiting while eating. COMPARISON: None. TECHNIQUE: 5 mCi of mebrofenin was injected intravenously. Imaging of the right upper quadrant was obtained. Following this, 1.6 mcg of CCK was injected FINDINGS: Normal homogeneous uptake by the liver. Prompt excretion into the intra and extrahepatic biliary ducts. The gallbladder is visualized within 15 minutes. The ejection fraction is 94%. NM/Hepatobilliary Img w/Pharm Int IMPRESSION: Normal hepatobiliary scan with cholecystokinin injection. Reading Location: [facility]
== END | disposition home or self-care (01) ==
LOC: NM 12:06
PROVIDERS: PCP Family Medicine; Referring Provider Family Medicine; Visit Provider Family Medicine
DX: K80.50 Calculus of bile duct without cholangitis or cholecystitis without obstruction (principal)
CPT/HCPCS: 78227; A9537; J2805

== ENCOUNTER → 2025-02-03 | Outpatient (CLI) | payer MEDICAID, SELFPAY ==
--- NOTE | 2025-02-03 10:30 | US_ITS ---
EXAM: US Abdomen Limited, Right Upper Quadrant CLINICAL INDICATION: TECHNIQUE: Real-time ultrasound of the right upper quadrant with image documentation. COMPARISON: No relevant prior studies available. FINDINGS: LIVER: Liver measures up to 12.6 cm. Fatty infiltration of the liver. No intrahepatic bile duct dilation. GALLBLADDER: Negative Xiong's sign was reported by the machine i coremaker. No gallstones. COMMON BILE DUCT: Unremarkable as visualized. No stones. No dilation. Common bile duct measures 0.4 cm in diameter. PANCREAS: Unremarkable as visualized. RIGHT KIDNEY: Unremarkable. No stones. No hydronephrosis. The right kidney measures 10.2 x 5.6 x 4.8 cm. US/Abdomen Limited IMPRESSION: Fatty infiltration of the liver. Reading Location: [facility]
--- NOTE | 2025-02-03 11:00 | RAD_ITS ---
PROCEDURE: ABD INC DECUB AND/OR ERECT REASON FOR EXAM: Concern for constipation. TECHNIQUE: Three-view supine and upright abdomen. COMPARISON: None RAD/Abd Inc Decub and/or Erect IMPRESSION: No evidence of pneumoperitoneum. No excess stool burden is noted. Air and stool are seen throughout the large bowel and rectum. No significant small bowel dilation is evident. No mass or mass effect is seen. Reading Location: [id number]
== END | disposition home or self-care (01) ==
PROVIDERS: PCP Family Medicine; Referring Provider Nurse Practitioner Acute Care; Visit Provider Nurse Practitioner Acute Care
DX: R10.11 Right upper quadrant pain (principal); R11.0 Nausea; K80.20 Calculus of gallbladder without cholecystitis without obstruction
CPT/HCPCS: 74019; 76705

== ENCOUNTER → 2025-02-15 | Outpatient (CLI) | payer MEDICAID, SELFPAY ==
[2025-02-15 17:07] LABS: Hepatitis B Surface Antibody Nonreactive; Hepatitis B Surface Antigen Nonreactive (Nonreactive); Hepatitis C Antibody Nonreactive (Nonreactive)
[2025-02-17 05:07] LABS: Hepatitis A AB, Total Negative (Negative); Hepatitis B Core Ab Total Negative (Negative)
== END | disposition home or self-care (01) ==
LOC: LAB 14:46
PROVIDERS: PCP Family Medicine; Referring Provider Nurse Practitioner Acute Care; Visit Provider Nurse Practitioner Acute Care
DX: K76.0 Fatty (change of) liver, not elsewhere classified (principal); R10.11 Right upper quadrant pain
CPT/HCPCS: 36415; 86704; 86706; 86708; 86803; 87340

== ENCOUNTER 2025-03-01 13:10 | Day surgery (SDC) | payer MEDICAID, SELFPAY ==
[2025-03-01] VITALS (8 sets, daily range): BP systolic 106–120; BP diastolic 71–75; PULSE 74–78; RESP 16; TEMP 36.2–36.9; O2SAT 99–100; BMI 31.1
[2025-03-01 13:48] LABS: Internal QC Validated? YES +Cl - CLEAR BKGD; Pregnancy, Urine Negative Negative; Record Kit Lot#,Urine Preg 899023
--- NOTE | 2025-03-01 13:49 | PCM.PRE.AN2 ---
ASA Classification* ASA Classification ASA Classification: 2 Assessment & Plan Anesthesia* Anesthesia Assessment Anesthesia Assessment: Discussed sedation and/or anesthesia options, risks, benefits, and alternatives with patient/parents/legal guardian/POA. Questions invited. The patient/parents/legal guardian/POA seems to understand and agrees to proceed with anesthesia plan. Reviewed the physical assessment, medical history, allergy history and patient home medications list prior to surgery/procedure/anesthetic and documented any changes. Performed airway and anesthesia risk assessments. Anesthesia Type Anesthesia Type: MAC History Source History Obtained from:: Patient and Chart Anesthesia Focused Assessment* Temperature: 98.4 F Pulse Rate: 78 Blood Pressure: 112/73 Respiratory Rate: 16 Pulse Ox: 99 Oxygen Delivery Method: Room Air Airway Assessment Mouth opens: >3 cm Mallampati Score: II Teeth Condition: Caps/Crowns (Patient has a crown on the upper left molar. It is tight.) and Missing (Patient has a missing molar on the right lower. Rest of her teeth are tight) Neck Range of motion (ROM): Full ROM Focused Labs Anesthesia Preop lab: CBC WBC 8.3 K/mm3 (4.4-11.0) 11/05/24 15:30 11/05/24 RBC 4.03 M/mm3 (4.2-5.4) L 11/05/24 15:30 11/05/24 Hgb 12.9 g/dL (12.0-15.0) 11/05/24 15:30 11/05/24 Hct 39.9 % (37-47) 11/05/24 15:30 11/05/24 Plt Count 320 K/mm3 (150-450) 11/05/24 15:30 11/05/24 CHEMISTRY Potassium 4.1 mmol/L (3.5-5.1) 11/05/24 15:30 11/05/24 Sodium 140 mmol/L (136-145) 11/05/24 15:30 11/05/24 Magnesium 5.6 mg/dL (1.6-2.6) H* 12/11/22 10:37 12/11/22 BUN 10 mg/dL (7-18) 11/05/24 15:30 11/05/24 Creatinine 0.79 mg/dL (0.55-1.02) 11/05/24 15:30 11/05/24 Glucose 91 mg/dL (74-106) 11/05/24 15:30 11/05/24 TSH 1.71 uIU/mL (0.358-3.74) 01/09/24 10:25 01/09/24 COAG PT 12.8 SECONDS (11.7-14.9) 08/21/18 11:21 08/21/18 HCG, Quant < 1 mIU/mL (1-3) 02/05/22 13:43 02/05/22 Urine Test Negative Negative 03/01/25 13:20 03/01/25 Pre-Assessment Diagnosis/Proposed Procedure Planned Operative Procedure(s): EGD Anesthesia History Anesthesia History - parachute crown sewer: Anesthesia History - parachute crown sewer Hx Hospitalization Yes: 10/2024 [facility] 02/23/25 14:09 Any Problems With Anesthesia No 02/23/25 14:09 Cholinesterase deficiency No 02/23/25 14:09 You/Your Family Experience No 02/23/25 14:09 fever (hyperthermia) with Relationship Recent Exposure to Contagious No 03/01/25 13:30 Disease Does patient have nerve No 02/23/25 14:09 stimulator Patient instructed to have device shut off --Does patient have Pacemaker No 03/01/25 13:32 or ICD? When Was Last Pacemaker Check QUESTION #4 FULL TEXT: You/Your Family Experience fever (hyperthermia) with Anesthesia Last Oral Intake Last Oral intake: Last Oral Intake NPO since 09:00 03/01/25 13:32 Meds taken in AM with sips of water? Meds patient instructed to take am of surgery Any additional information?: Yes NPO since: 09:00 (Water) PONV PONV - parachute crown sewer: PONV - parachute crown sewer Female Yes 02/23/25 14:09 HX of Motion Sickness Yes 02/23/25 14:09 HX of N/V After Surgery Yes 02/23/25 14:09 Non-Smoker Yes 02/23/25 14:09 Duration of Surgery greater No 02/23/25 14:09 than 60 minutes Number of Risk Factors 4 02/23/25 14:09 PONV Score Severe Risk 02/23/25 14:09 Height & Weight Height & Weight: Anesthesia: Height & Weight Height 5 ft 4 in 03/01/25 13:32 Weight: 82.191 kg 03/01/25 13:32 Body Mass Index (BMI) 31.1 03/01/25 13:32 Respiratory Assessment Respiratory Assessment - parachute crown sewer: Respiratory Tract Infection Hx - parachute crown sewer Hx Respiratory Tract Infection Yes: 02/07/25 URI 02/23/25 14:09 Any additional information?: Yes Hx Respiratory Tract Infection: Yes (Patient still has a lingering cough from upper respiratory infection.) STOP Sleep Apnea STOP Sleep Apnea - parachute crown sewer: STOP Sleep Apnea - parachute crown sewer Hx Hypertension No 02/23/25 14:09 Hx Sleep Apnea No 02/23/25 14:09 CPAP No 10/20/24 12:15 BIPAP No 10/19/24 16:48 Do you snore loudly (louder No 02/23/25 14:09 than talking or can be heard Do you often feel tired/ No 02/23/25 14:09 fatigued/ sleepy during daytime? Has anyone observed you stop No 02/23/25 14:09 breathing during sleep? STOP Results Negative 02/23/25 14:09 QUESTION #5 FULL TEXT : Do you snore loudly (louder than talking or can be heard through closed doors)? 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 Specify any problems Hx of Preganancy in last 3 N/A 02/23/25 14:09 Months Nurse Filling Out Transfusion NBUCHER 02/23/25 14:09 & Questions: Date: 02/23/25 02/23/25 14:09 Time: 14:10 03/26/25 14:09 Patient unable to answer at this time (ie. confused, unrespo /Reproduction History /Reproductive History - parachute crown sewer: /Reproductive Hx- parachute crown sewer Hx Now No 02/23/25 14:09 Gestational Age (in weeks): EDC: Hx Hx Para Hx Section SAB No 02/23/25 14:09 [facility] Medical History Bile acid esophageal reflux Gastric reflux Former smoker Interstitial cystitis UTI (urinary tract infection) Post depression Non-smoker Pre-eclampsia Endometriosis Pelvic pain Home Medications ?Medication ?Instructions ?Recorded ?Last Taken ?Type colesevelam 625 mg tablet 1,250 mg PO BID 01/31/25 02/28/25 History mecobalamin (vitamin B12) 1,000 3,000 mcg PO QDAY 01/31/25 02/28/25 History mcg chewable tablet ondansetron HCl 8 mg tablet 8 mg PO Q12H 01/31/25 02/27/25 History Allergy/AdvReac Type Severity Reaction Status Date / Time hydrocodone Allergy Hives Verified 03/01/25 13:26 Family History Mother Hypertension Surgical History History of tonsillectomy and adenoidectomy History of laparoscopy History of cholecystectomy History of surgery Hx of appendectomy Social History household members: children Smoking Status: Former smoker alcohol intake: current alcohol intake frequency: holidays/special occasions only substance use type: does not use what type of physical activity do you participate in: other details: goes to the gym frequency: 3-4 times per week Review of Systems (Anesthesia) ROS Narrative System reviewed and no additional complaints, except as documented.
--- NOTE | 2025-03-01 14:15 | EGD_PTH ---
PATIENT: PONCHO ORTIZ LOC: EN U#:[id number] AGE/SX: 25/F ROOM: RE03/01/[address]: Dr. Jordan Martin DO : 2000 BED: DIS: 03/01/2025 SPEC #: [id number] RECD: 03/02/25 11:03 STATUS: MIESHA REJose Luis #: [id number] GOLDEN: 03/01/25 14:[address]: Jordan Martin DEPT: SURGICAL PATHOLOGY RECD BY: Johnny Sotelo ENTERED: 03/02/25 11:04 SP TYPE: EGD BIOPSY FANTA DR: Dr. Gary Salvador MD Tissues: A - Duodenum, NOS B - Gastric mucous membrane Procedures: Immunohistochemical Stains Surgery Specimen Level IV HEADER OPERATION: EGD, biopsy PRE-OP DIAGNOSIS: Intractable right upper quadrant abdominal pain, nausea, cholelithiasis, right upper quadrant pain TISSUE SUBMITTED: A- Duodenum biopsy, B- Gastric body biopsy MICROSCOPIC DIAGNOSIS A. Small Bowel, Duodenum, Biopsy: - Normal villous architecture with Yoli gland hyperplasia. - Negative for increased intraepithelial lymphocytes. B. Stomach, Body, Biopsy: - Oxyntic mucosa with chronic inflammation and focal activity. - IHC is negative for H pylori organisms. MICROSCOPIC DESCRIPTION Slides are reviewed. These tests were developed and their performance characteristics determined by [facility]. They may not have been cleared or approved by the U.S. Food and Drug Administration. The FDA has determined that such clearance or approval is not necessary. The above immunohistochemical/dualISH markers are ordered and reviewed by the Pathologist. GROSS DESCRIPTION A. Received in formalin in a container labeled with the patient's name, date of , and duodenum biopsy are 2 mclean-pink strips of mucosal tissue, each measuring 0.6 x 0.2 x 0.2 cm. Submitted in toto in A1. B. Received in formalin in a container labeled with the patient's name, date of , and gastric body biopsy are multiple mclean-pink fragments of mucosal tissue measuring 0.8 x 0.7 x 0.3 cm in aggregate. Submitted in toto in B1. SB 03/02/2025 CPT:95612e9, 40426
--- NOTE | 2025-03-01 14:35 | PCM.HP.STD ---
HPI - General General Date of Admission: 03/01/25 Date of Service: 03/01/25 Chief Complaint: abdominal pain HPI Narrative PONCHO ORTIZ, is a 25 F who presentsChief Complaint: RUQ pain Details: PONCHO ORTIZ, is a 24 F who presents to the office today for Labs completed 11/05/2024 reveal HGB 12.9, normal transaminases, and CRP. HIDA 01/12/2025 EF 94% CT A&P (IV contrast): 11/09/[address] (without contrast) 10/19/2024 No obstructive uropathy is seen at this time. 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 ABD US 10/19/2024 Solitary gallstone in neck of the gallbladder. EGD 10/20/2024 ([facility]) mild gastritis (neg. H. pylori), negative esophageal biopsy - The specimen shows fragments of gastric mucosa with chronic inflammatory cell infiltrates in the lamina propria consisting of lymphocytes and plasma cells, consistent with mild chronic gastritis - Normal examined duodenum. No specimens collected. - Gastritis. Biopsied. - Non-bleeding gastric ulcer with pigmented material. Biopsied. - Z-line regular. No specimens collected. - Mucosal nodule found in the esophagus. - The examination was otherwise normal. - [facility] - Resume regular diet today. - Use sucralfate tablets 1 gram PO BID today. - Await pathology results. - No aspirin, ibuprofen, naproxen, or other non-steroidal anti-inflammatory drugs for 2 days after biopsy. - recently started Colesevelam 1250mg BID - started this a couple days ago - Ondansetron - discontinued PPI and Carafate - reports dicyclomine did not help before trouble with my gallbladder since August - reports she was seen in ER and US revealed GB stone - states Dr. Ross felt the GB stone was not her cause of pain - EGD showed bile in stomach and gastric ulcer - states the pain is getting worse - RUQ pain, severe, like a balloon sitting there, pain is intermittent, not always associated with PO intake - c/o radiation to the back under right shoulder blade - she has a constant pressure but the severity of pain waxes and wanes - weight has been fluctuating - denies any HB - nausea daily - she is taking Ondansetron daily - vomiting is vomiting every couple of days - bile - she denies any improvement in her symptoms since starting Colesevelam - but no worse - prior to onset of pain she reports she was having normal BM QOD - never felt constipated - pain never changes with a BM - always has pain with PO intake - avoids greasy/fatty foods - these will always make pain worse - she was on a GLP-1 January to August 2024 - she lost 30-40lbs on GLP-1 - 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 Modesto QUIROS, ABD US, CT, HIDA EGD, pathology [facility] Medical History Bile acid esophageal reflux Gastric reflux Former smoker Interstitial cystitis UTI (urinary tract infection) Post depression Non-smoker Pre-eclampsia Endometriosis Pelvic pain Home Medications ?Medication ?Instructions ?Recorded ?Last Taken ?Type colesevelam 625 mg tablet 1,250 mg PO BID 01/31/25 02/28/25 History mecobalamin (vitamin B12) 1,000 3,000 mcg PO QDAY 01/31/25 02/28/25 History mcg chewable tablet ondansetron HCl 8 mg tablet 8 mg PO Q12H 01/31/25 02/27/25 History Allergy/AdvReac Type Severity Reaction Status Date / Time hydrocodone Allergy Hives Verified 03/01/25 13:26 Family History Mother Hypertension Surgical History History of tonsillectomy and adenoidectomy History of laparoscopy History of cholecystectomy History of surgery Hx of appendectomy Social History household members: children Smoking Status: Former smoker alcohol intake: current alcohol intake frequency: holidays/special occasions only substance use type: does not use what type of physical activity do you participate in: other details: goes to the gym frequency: 3-4 times per week ROS Constitutional Constitutional: Reports systems reviewed and no addt'l complaints, except as documented Eyes Eyes: Reports systems reviewed and no addt'l complaints, except as documented ENT HEENT: Reports systems reviewed and no addt'l complaints, except as documented Cardiovascular Cardiovascular: Reports systems reviewed and no addt'l complaints, except as documented Respiratory/Chest Respiratory/Chest: Reports systems reviewed and no addt'l complaints, except as documented Gastrointestinal Gastrointestinal: Reports abdominal pain, belching, bloating, change in bowel habits, diarrhea, early satiety, excessive flatus and nausea Genitourinary Genitourinary: Reports systems reviewed and no addt'l complaints, except as documented Musculoskeletal Musculoskeletal: Reports back pain Integumentary Integumentary: Reports systems reviewed and no addt'l complaints, except as documented Neurologic Neurologic: Reports systems reviewed and no addt'l complaints, except as documented Psychiatric Psychiatric: Reports systems reviewed and no addt'l complaints, except as documented Endocrine Endocrinology: Reports systems reviewed and no addt'l complaints, except as documented Hematologic/Lymphatic Hematologic/Lymphatic: Reports systems reviewed and no addt'l complaints, except as documented Allergic/Immunologic Allergic/Immunologic: Reports systems reviewed and no addt'l complaints, except as documented Vital Signs Vital Signs Vital Signs: 03/01/25 13:30 03/01/25 13:32 03/01/25 14:03 Temperature 98.4 F 98.4 F Temperature Source Temporal Pulse Rate 78 78 Respiratory Rate 16 16 Respiratory Pattern Normal Blood Pressure 112/73 112/73 Blood Pressure Mean 86 Blood Pressure Source Monitor Blood Pressure Position Semi-Fowlers Blood Pressure Location Right Arm Pulse Ox 99 99 Oxygen Delivery Method Room Air Room Air Weight Weight: 181 lb 3.2 oz Body Mass Index (BMI) 31.1 Physical Exam GI GI Narrative: Abdomen- soft, nontender. Results Lab / Micro Data Labs: Laboratory Results - last 24 hr 03/01/25 13:20: Urine Test Negative Assessment & Plan Assessment/Plan (1) Metabolic dysfunction-associated steatotic liver disease (MASLD): (2) RUQ pain: (3) Epigastric abdominal pain: (4) Nausea: (5) Intractable right upper quadrant abdominal pain: PLAN: Assessment and Plan Assessment and Plan (1) Intractable right upper quadrant abdominal pain: Status: Acute (2) Nausea: Status: Acute (3) Cholelithiasis: Status: Acute Qualifiers: Cholelithiasis location: gallbladder Cholecystitis presence: without cholecystitis Biliary obstruction: without biliary obstruction Qualified Code(s): K80.20 - Calculus of gallbladder without cholecystitis without obstruction (4) RUQ pain: Status: Acute Orders: Orders Abdomen Limited Today K80.20 - Calculus of gallbladder without cholecystitis without obstruction, R10.11 - Right upper quadrant pain, R11.0 - Nausea Abd Inc Decub and/or Erect Today K80.20 - Calculus of gallbladder without cholecystitis without obstruction, R10.11 - Right upper quadrant pain, R11.0 - Nausea Plan 24y/o female presents for consultation with complaints of RUQ abdominal pain, N/V, diarrhea referred by Dr. Gary Salvador for possible hyperkinetic GB with HIDA revealing EF 94%. RUQ pain began August 2024 and an US revealed a gallstone in the neck of the GB at that time. EGD completed 10/20/2024 revealed H. pylori negative gastric ulcer. She denies any use of NSAIDS. She was taking GLP-1 January - August 2024 with a 30-40lb weight loss. She denies any improvement in pain on PPI and sucralfate BID. Denies any improvement in pain with dicyclomine. She complains of constant RUQ pain with intermittent episodes of severe RUQ pain that radiates through to her back under right shoulder blade. Pain is not always associated with PO intake, does not improve with a BM and denies any HB. She reports experiencing watery diarrhea daily and recently started Colesevelam 1250mg BID. She will repeat an ABD US and KUB at this time as well as EGD. Patient Instructions: Complete KUB today ABD US EGD Plan Details Follow Up: 1 Month Coding Level of Care Code Off vis,new,level 4 Diagnoses Intractable right upper quadrant abdominal pain R10.11 Nausea R11.0 Calculus of gallbladder without cholecystitis without obstruction K80.20 Cholelithiasis location: gallbladder Cholecystitis presence: without cholecystitis Biliary obstruction: without biliary obstruction RUQ pain R10.11
--- NOTE | 2025-03-01 15:07 | OP.EGD_ITS ---
Patient Name: Lexii Case Procedure Date: 03/01/2025 2:38 PM Date of : 2000 Age: 25 Procedure: Upper GI endoscopy Indications: Abdominal pain in the right upper quadrant Providers: Jordan Martin DO Referring MD: Gary Salvador Medicines: Monitored Anesthesia Care Patient Profile: This is a 25 year old female. Refer to note in patient chart for documentation of history and physical. Complications: No immediate complications. Procedure: Pre-Anesthesia Assessment: - Prior to the procedure, a History and Physical was performed, and patient medications and allergies were reviewed. The patient is competent. The risks and benefits of the procedure and the sedation options and risks were discussed with the patient. All questions were answered and informed consent was obtained. Patient identification and proposed procedure were verified by the physician in the pre-procedure area. Mental Status Examination: alert and oriented. Airway Examination: normal oropharyngeal airway and neck mobility. Respiratory Examination: clear to auscultation. CV Examination: normal. ASA Grade Assessment: II - A patient with mild systemic disease. After reviewing the risks and benefits, the patient was deemed in satisfactory condition to undergo the procedure. The anesthesia plan was to use monitored anesthesia care (MAC). Immediately prior to administration of medications, the patient was re-assessed for adequacy to receive sedatives. The heart rate, respiratory rate, oxygen saturations, blood pressure, adequacy of pulmonary ventilation, and response to care were monitored throughout the procedure. The physical status of the patient was re-assessed after the procedure. After obtaining informed consent, the endoscope was passed under direct vision. Throughout the procedure, the patient's blood pressure, pulse, and oxygen saturations were monitored continuously. The gastroscope was introduced through the mouth, and advanced to the third part of the duodenum. Small bowel enteroscopy was deemed necessary. The upper GI endoscopy was accomplished without difficulty. The patient tolerated the procedure well. Scope In: 2:49:09 PM Scope Out: 2:52:21 PM Total Procedure Duration Time 0 hours 3 minutes 12 seconds Findings: The examined esophagus was normal. Patchy mildly erythematous mucosa without bleeding was found in the gastric body. Biopsies were taken with a cold forceps for histology. Verification of patient identification for the specimen was done. Biopsies were taken with a cold forceps for Helicobacter pylori testing. Verification of patient identification for the specimen was done. Estimated blood loss was minimal. Patchy mild inflammation characterized by erythema was found in the duodenal bulb. Biopsies were taken with a cold forceps for histology. Verification of patient identification for the specimen was done. Estimated blood loss was minimal. Impression: - Normal esophagus. - Erythematous mucosa in the gastric body. Biopsied. - Bile duodenitis. Biopsied. Recommendation: - Discharge patient to home. - Resume previous diet. - Continue present medications. - Await pathology results. Procedure Code(s): --- Professional --- 41847, Small intestinal endoscopy, enteroscopy beyond second portion of duodenum, not including ileum; with biopsy, single or multiple CPT copyright 2021 [employer]. All rights reserved. The codes documented in this report are preliminary and upon hand assembler for puller over review may be revised to meet current compliance requirements. Jordan Martin DO 03/01/2025 3:07:21 PM This report has been signed electronically. Number of Addenda: 0 Note Initiated On: 03/01/2025 2:38 PM
--- NOTE | 2025-03-01 15:08 | OP.CCLET_ITS ---
03/01/2025 Gary Salvador [address] [facility] [address] [place] [address] Re : Upper GI endoscopy procedure for Lexii Evie Dear Dr. Salvador This procedure was performed on Saturday, March 01, 2025. My impressions and recommendations are as follows: Impressions : - Normal esophagus. - Erythematous mucosa in the gastric body. Biopsied. - Bile duodenitis. Biopsied. Recommendations : - Discharge patient to home. - Resume previous diet. - Continue present medications. - Await pathology results. My findings are described in the full procedure note, which is enclosed. If I can be of further assistance, please feel free to contact me at . Sincerely, Jordan Martin, 03/01/2025 3:07:21 PM This report has been signed electronically.
--- NOTE | 2025-03-01 16:58 | PCM.POST.ANE ---
Anesthesia: Postop Eval I Current Vital Signs Temperature: 97.3 F Pulse Rate: 77 Blood Pressure: 106/72 Respiratory Rate: 16 Pulse Ox: 100 Oxygen Delivery Method: Room Air Assessment Airway patent: Yes Spontaneous unlabored respirations: Yes Mental status: Awake and Calm nausea: No Vomiting: No Anesthesia Complication: No Fluid Hydration Crystalloid volume administer (ml): 20 Total IV fluid infused: 20 Progress Note Anesthesia document: Postop Eval 1 completed: Yes
--- NOTE | 2025-03-01 20:05 | POSTOPAN2_ITS ---
Anesthesia Postop Eval I Sum Postop Eval Completion status Anesthesia document: Postop Eval 1 completed: Yes Anesthesia Postop Eval I Summary Anesthesia Postop Eval I Summary: Anesthesia Postop Eval I: Assessment Summary Airway patent Yes 03/01/25 16:[email or web address] Spontaneous unlabored Yes 03/01/25 16:[email or web address] respirations Mental status Awake,Calm 03/01/25 16:[email or web address] nausea No 03/01/25 16:[email or web address] Vomiting No 03/01/25 16:[email or web address] Anesthesia Postop Eval I: Fluid Summary Crystalloid volume administer 20 03/01/25 16:[email or web address] (ml) Colloids volume administered ( ml) Blood Product volume administered (ml) Total IV fluid infused 20 03/01/25 16:[email or web address] Anesthesia Postop Eval I: Summary Notes Anesthesia Complication No 03/01/25 16:[email or web address] Anesthesia Complication Comment: Post-operative progress note Anesthesia: Postop Eval II Evaluation Mental status: Awake and Calm Pain Level: 0 nausea: No Vomiting: No Complications Anesthesia Complication: No
--- NOTE | 2025-03-01 20:05 | PCM.POSTANE2 ---
Anesthesia Postop Eval I Sum Postop Eval Completion status Anesthesia document: Postop Eval 1 completed: Yes Anesthesia Postop Eval I Summary Anesthesia Postop Eval I Summary: Anesthesia Postop Eval I: Assessment Summary Airway patent Yes 03/01/25 16:58 MANAGER [email or web address] Spontaneous unlabored Yes 03/01/25 16:58 MANAGER [email or web address] respirations Mental status Awake,Calm 03/01/25 16:58 MANAGER [email or web address] nausea No 03/01/25 16:58 MANAGER [email or web address] Vomiting No 03/01/25 16:58 MANAGER [email or web address] Anesthesia Postop Eval I: Fluid Summary Crystalloid volume administer 20 03/01/25 16:58 MANAGER [email or web address] (ml) Colloids volume administered ( ml) Blood Product volume administered (ml) Total IV fluid infused 20 03/01/25 16:58 MANAGER [email or web address] Anesthesia Postop Eval I: Summary Notes Anesthesia Complication No 03/01/25 16:58 MANAGER [email or web address] Anesthesia Complication Comment: Post-operative progress note Anesthesia: Postop Eval II Evaluation Mental status: Awake and Calm Pain Level: 0 nausea: No Vomiting: No Complications Anesthesia Complication: No
== END 2025-03-01 15:42 | disposition home or self-care (01) ==
LOC: EN 13:12 → AC 13:13
PROVIDERS: Anesthesiology; PCP Family Medicine; Referring Provider Family Medicine; Visit Provider Internal Medicine Gastroenterology
PROC: 0DJ08ZZ Inspection of Upper Intestinal Tract, Via Natural or Artificial Opening Endoscopic (ICD-10-PCS; CPT 43235; principal; 2025-03-01 14:10)
DX: K29.50 Unspecified chronic gastritis without bleeding (principal); K29.80 Duodenitis without bleeding; K80.20 Calculus of gallbladder without cholecystitis without obstruction; K21.9 Gastro-esophageal reflux disease without esophagitis; K76.0 Fatty (change of) liver, not elsewhere classified; Z90.49 Acquired absence of other specified parts of digestive tract; Z87.891 Personal history of nicotine dependence
CPT/HCPCS: 44361; 81025; 88305; 88342; A4216; J2405